=== PATIENT | male | born 1945 | race Caucasian/White ===

== ENCOUNTER → 2016-12-20 | Outpatient (CLI) | payer BC, MEDICARE, OTHER ==
[~2016-12-20] MED LIST: ATEN50TA8 PO; ATOR-22 PO; SULF500T36 PO
[2016-12-20 16:26] LABS: BLOOD UREA NITROGEN 24 mg/dl (7-18); BUN/CREATININE RATIO 13.9 (10-20); CALCIUM 8.8 mg/dl (8.5-10.1); CARBON DIOXIDE 30 mmol/L (21-32); CHLORIDE 100 mmol/L (98-107); GLUCOSE 98 mg/dl (70-99); POTASSIUM 3.7 mmol/L (3.5-5.1); SODIUM 138 mmol/L (136-145)
[2016-12-20 16:27] LABS: PHOSPHORUS 3.4 mg/dl (2.5-4.9)
== END | disposition home or self-care (01) ==
LOC: C.LAB1850 12:46
PROVIDERS: ATTEND Internal Medicine Nephrology
DX: I10 Essential (primary) hypertension (principal); N28.9 Disorder of kidney and ureter, unspecified

== ENCOUNTER → 2017-04-25 | Outpatient (CLI) | payer MEDICARE ==
[2017-04-25 15:24] LABS: BLOOD UREA NITROGEN 24 mg/dl (7-18); BUN/CREATININE RATIO 12.7 (10-20); CARBON DIOXIDE 28 mmol/L (21-32); CHLORIDE 101 mmol/L (98-107); GLUCOSE 97 mg/dl (70-99); MAGNESIUM 2.4 mg/dl (1.8-2.4); POTASSIUM 4.2 mmol/L (3.5-5.1); SODIUM 138 mmol/L (136-145)
[2017-04-25 15:25] LABS: PHOSPHORUS 3.9 mg/dl (2.5-4.9)
[2017-04-25 15:28] LABS: CALCIUM 8.8 mg/dl (8.5-10.1)
[2017-04-25 16:12] LABS: URINE PROTIEN/CREAT RATIO 0.1 (0-0.2); URINE TOTAL PROTEIN 25.4 mg/dl (0-11.9)
== END | disposition home or self-care (01) ==
LOC: C.LAB1850 13:59
PROVIDERS: ATTEND Internal Medicine Nephrology
DX: I10 Essential (primary) hypertension (principal); N28.9 Disorder of kidney and ureter, unspecified

== ENCOUNTER → 2017-05-23 | Outpatient (CLI) | payer MEDICARE ==
[2017-05-23 14:47] LABS: BLOOD UREA NITROGEN 23 mg/dl (7-18); BUN/CREATININE RATIO 15.4 (10-20); CALCIUM 8.6 mg/dl (8.5-10.1); CARBON DIOXIDE 29 mmol/L (21-32); CHLORIDE 107 mmol/L (98-107); GLUCOSE 81 mg/dl (70-99); POTASSIUM 4.5 mmol/L (3.5-5.1); SODIUM 140 mmol/L (136-145)
== END | disposition home or self-care (01) ==
LOC: C.LAB1850 12:33
PROVIDERS: ATTEND Internal Medicine Nephrology
DX: I10 Essential (primary) hypertension (principal)

== ENCOUNTER → 2017-08-26 | Outpatient (CLI) | payer MEDICARE ==
[2017-08-26 15:36] LABS: BLOOD UREA NITROGEN 30 mg/dl (7-18); BUN/CREATININE RATIO 17.9 (10-20); CALCIUM 8.6 mg/dl (8.5-10.1); CARBON DIOXIDE 27 mmol/L (21-32); CHLORIDE 101 mmol/L (98-107); GLUCOSE 111 mg/dl (70-99); PHOSPHORUS 3.4 mg/dl (2.5-4.9); POTASSIUM 4.3 mmol/L (3.5-5.1); SODIUM 135 mmol/L (136-145)
== END | disposition home or self-care (01) ==
LOC: C.LAB1850 13:19
PROVIDERS: ATTEND Internal Medicine Nephrology
DX: N18.3 Chronic kidney disease, stage 3 (moderate) (principal)

== ENCOUNTER → 2017-09-09 | Outpatient (CLI) | payer MEDICARE | END | disposition home or self-care (01) | LOC: C.LAB1850 11:13 | PROVIDERS: ATTEND Urology | DX: C61 Malignant neoplasm of prostate (principal) ==

== ENCOUNTER → 2017-09-28 | Outpatient (CLI) | payer MEDICARE ==
--- NOTE | 2017-09-29 06:28 | PAP/PSG TECHNICIAN REPORT ---
[facility] Shotblast Operator Polysomnogram Report Study name: None Report date: 09/29/2017 Study date: 09/28/2017 Referring Physician: DR. KENNEY BAPTISTE Name: JODY BARGER Interpreting Physician: French Tellez D.O. Date of : 1945 Shotblast Operator: Francisca Sousa, PSGT. Sex: Male Age: 71 StudyType: PSG Weight: 206 lbs Height: 71 years, Height 5' 9" Neck Circum:15 inches BMI: 30.42 Medications: Carvedilol 12.5 mg. Carvedilol 25 mg, Enalapril Maleate 2.5 mg, Sulfasalazine 500 mg, Atorvastatin Calcium 20 mg. Patient History 71 yr. old male presents to the sleep lab for accelerated hypertension, daytime symptomatic hypotension =7, Neck= 15 inches. Parameters Monitored NPSG: E1-M2, E2-M1, Fp1-M2, Fp2-M1, F3-M2, F4-M2, F4-M1, C3-M2, C4-M2, C4-M1, O1-M2, O2-M2, O2-M1, T3-M2, T4-M1, P3-M2, P4-M1, CHIN1, CHIN2, HR, EKG, Legs, PFLOW, SNOR, FLOW, CFLOW, Tidal Volume, THOR, ABDO, SpO2, PLTH, CPRESS, ETCO2 Wave, ETCO2, pH Sleep Architecture Sleep Stages Time at Lights Off 10:41:30 PM STAGES Time (min.) TST (%) Time at Lights On 5:45:30 AM Wake 138.0 -- Total Recording Time (TRT) 424.50 min. N1 39.0 14 Total Sleep Period (TSP) 369.5 min. N2 166.0 58 Total Sleep Time (TST) 286.0min. N3 0.0 0 Awake Time 138.0 min. REM 81.0 28 Wake after Sleep Onset 83.5 min. Sleep Efficiency (SE) 67 % Sleep Onset Latency (NAVIN) 54.5 min. Number of Stage 1 Shifts None Awakenings 4 Stage Changes 33 Number of REM periods 8 REM 81.0 28 REM Latency 17.0 min. NREM 205.0 72 Body Position Analysis Supine Right Left Side Prone Vertical Total Sleep Time (min.) 104.5 97.2 107.3 204.50 0.0 0.3 Total Sleep Time (%) 28% 34% 38% 72 0% N/A% Total Sleep Time REM (min.) 15.9 22.6 42.5 None 0.0 0.0 Total Sleep Time NREM (min.) 65.6 74.6 64.9 None 0.0 0.0 Intermittent Wake (min.) 23.0 24.1 90.6 None 0.0 0.3 Total Sleep Period (%) 22% None None None None None Arousals Myoclonus (PLM) * Events Count Index Events Count Index Spontaneous 29 6 Events Awake (PLMW) 0 0.0 Respiratory 1 0.2 Events Asleep w/ Arousal (PLMA) 1 0.2 PLM 1 0 Events Asleep w/o Arousal (PLMS) 27 5.7 Snoring 2 0 Total Asleep 28 5.9 Total 33 7 Total 28 4 Respiratory Analysis * CA OA MA CH H RERA Total Count 0 0 0 0 13 12 13 Index 0.0 0.0 0.0 0 2.7 3 5.2 Mean Duration 0.0 0.0 0.0 0.00 15.6 12.2 14.0 Longest Duration 0.0 0.0 0.0 0.00 0.0 16.9 23.7 Respiratory Event Summary Total Supine ~Supine Right Left Prone REM NREM Apneas Count 0 0 0 0 0 N/A 0 0 Index 0.0 0 0 0.0 0.0 N/A 0 0 Hypopneas (4% Desat) Count 13 10 3 1 2 N/A 5 8 Index 2.7 7.4 1 0.6 1.1 N/A 3.7 2.3 Apneas & All Hypopneas Count 13 10 3 1 2 N/A 5 8 Index 2.7 7 1 1 1 N/A 3.7 2.3 Respiratory Events (Earthmoving Labourer+All Hyp+RERA) Count 13 13 12 4 8 N/A 5 8 Index 5.2 10 4 2.5 4.5 N/A 10.4 3.2 Respiratory Related Arousal Count 1 13 1 0 1 N/A 1 0 Index 0.2 0 0 0 1 N/A 1 0 Snoring Analysis Supine Right Left Prone REM NREM Total Snore duration 4.2 min Snores count 80 106 14 N/A 50 150 200 Snore mean duration 1.3 Sec Snores index 59 65 8 N/A 37.0 43.9 42.0 TST with snoring (%) 1.5% Desaturation Event Summary: Minimum %SpO2 Event Count Mean/Min/Max Duration(sec.) Desaturation Index % Time In Bed > 90 1 20.3 / 20.3 / 20.3 6.1 2.4 86 - 90 21 29.9 / 10.5 / 55.0 3.5 88.2 81 - 85 1 46.3 / 46.3 / 46.3 1.6 9.4 76 - 80 0 N/A 0.0 0.0 71 - 75 0 N/A 0.0 0.0 66 - 70 0 N/A 0.0 0.0 61 - 65 0 N/A 0.0 0.0 56 - 60 0 N/A 0.0 0.0 51 - 55 0 N/A 0.0 0.0 < 50 0 N/A 0.0 0.0 Total REM NREM Awake <50% 0.0 min. 0.0 min. 0.0 min. 0.0 min. 51 - 60% 0.0 min. 0.0 min. 0.0 min. 0.0 min. 61 - 70% 0.0 min. 0.0 min. 0.0 min. 0.0 min. 71 - 80% 0.0 min. 0.0 min. 0.0 min. 0.0 min. 81 - 90% 401.2 min. 79.1 min. 201.5 min. 120.5 min. 91 - 100% 9.8 min. 1.3 min. 1.4 min. 7.0 min. Average 88 87 87 89 Minimum SpO2 82 82 82 84 Desaturation Event Index 3.0 9.6 2.3 0.0 # Desat. Events below 89% 21 13 8 N/A Time(%) with Saturation below 89% 64.2 15.5 41.7 7.0 Time(min.) with Saturation below 89% 263.8 63.9 171.3 28.6 Time (mins) REM (mins) NREM (mins) % of TST SpO2 Below 90% 21 13 N8 95.3 SpO2 Below 88% 10 0 0 54 Heart Rate Analysis Min (bpm) Max (bpm) Average (bpm) Awake 60 196 68 NREM 57 127 64 REM 58 127 67 Overall 57 127 64 Supplemental O2 Values Minimum O2 level: None Value Start Time End Time Shotblast Operator Comments PSG Study slept in the right, left, and supine positions. No cardiac arrhythmia or PLM's noted. No bruxism noted. Snoring was noted and scored as a 2 on a scale of 1 through 5. (0=no snoring, 5=snoring loud enough to be heard through a closed door or down the bell way) Mr. Barger awoke to use the restroom one time during the night. Mr. Barger stated, I did not sleep as well as I do when I am in my own bed. The final report will be interpreted and signed by a sleep physician. The completed physician report will then be placed in the patient medical record. Patient displayed low oxygen saturations throughout the night. He woke to use the restroom once and complained of being too warm, a fan was put into the room at that time. He had a long period of wakefulness after he woke for the restroom. No significant respiratory events were displayed. Therapy (cm H2O) 0 TIB (min.) 424.0 TST (min.) 286.0 Sleep Onset (min.) 54.5 REM Onset From Sleep (min.) 17.0 Sleep Efficiency % 67 Wakefulness (%) 33 Wakefulness (min.) 138.0 NREM 1 (%) 14 NREM 1 (min.) 39.0 NREM 2 (%) 58 NREM 2 (min.) 166.0 NREM 3 (%) 0 NREM 3 (min.) 0.0 REM (%) 28 REM (min.) 81.0 # Arousals 33 Arousal Index 7 # Snore 200 Snore Index 42.0 AHI 2.7 AHI Supine 7 AHI Non-Supine 1 NREM AHI 2.3 REM AHI 3.7 RDI 5.2 # Obstructive Apnea 0 # Central Apnea 0 # Mixed Apnea 0 # Hypopneas 13 RERAs 12 Total Respiratory Events 26 Time Below SpO2 89% (min.) 235.2 Mean NREM SpO2 (%) 87 Mean REM SpO2 (%) 87 Mean Sleep SpO2 (%) 87 Min NREM SpO2 (%) 82 Min REM SpO2 (%) 82 Position Supine (min.) 104.5 Position Non-supine (min.) 204.5 LM Index Sleep 5.9 LM Index NREM 5.0 LM Index REM 8.1 Mean Heart Rate (bpm) 64 Min Heart Rate (bpm) 57
--- NOTE | 2017-09-30 20:16 | Sleep Study ---
Sleep Study Report Date of Service: 09/28/2017 Sleep Study Report Clinical data: The patient is a 71-year-old male. He feels that he is not rested in the morning. He is followed by Dr. Fuentes of the Nephrology Department. The patient has documented accelerated hypertension at night. This is an in- lab overnight polysomnography being done to help exclude obstructive sleep apnea. Sleep architecture: The total sleep period was 369.5 minutes. The total sleep time was 286 minutes. The sleep efficiency was moderately reduced to 67 percent. The sleep latency was prolonged to 54.5 minutes. Wake after sleep onset was increased to 83.5 minutes. The REM latency was short at 17 minutes. Sleep consisted of stage N1 14 percent, stage N2 58 percent, stage N3 0 percent , stage REM 28 percent. Arousal data: The patient had a total of 33 arousals including 29 spontaneous arousals, 1 respiratory arousal, 1 PLM arousal, and 2 snoring arousals. The arousal index was 7. PLM data: The patient had a total of 28 periodic limb movements of sleep for a PLM index of 5.9. There was 1 arousal associated with limb movements for a PLM arousal index of 0.2. EKG: The underlying cardiac rhythm was normal sinus. The minimum heart rate was 57 beats per minute. The maximum heart rate was difficult to determine due to motion artifact. It appeared to be approximately 75. Respiratory data: The patient had a total of 13 respiratory events, all hypopneas. Hypopneas were scored according to the 4 percent desaturation rule. The mean duration of the hypopneas was 15.6 seconds. The apnea-hypopnea index was 2.7 events per hour. This would suggest no significant sleep apnea. Oximetry data: The average saturation for the night was 88 percent. The minimum saturation was 82 percent. There was a total of 263.8 minutes with saturations less than 89 percent. Personal Injury Law Specialist comments: The patient's slept in the right, left, and supine positions. No cardiac arrhythmia noted. No bruxism noted. Snoring was noted and scored as a 2 on a scale of 1 through 5. The patient awakened to use the restroom 1 time during the nighttime. Impressions: 1. No evidence of significant obstructive sleep apnea 2. Nocturnal hypoxia Comments: Patient had a decreased sleep efficiency. He had difficulty initiating sleep. He then had a long awakening after waking to go to the bathroom. When he did sleep his sleep was fairly well consolidated. He had relatively few arousals. There was no significant limb movements. The major abnormality was that of hypoxia. It is unknown why the patient has hypoxia in light of the fact he does not have sleep apnea. He should be evaluated however for the need for nocturnal oxygen therapy. Recommendations: 1. It is suggested that the patient have an overnight pulse oximetry study to determine if he is a candidate for nocturnal oxygen therapy. 2. It would be suggested that if possible the patient avoid sleeping in the supine position. Typically there is more snoring and respiratory events when supine. Copies To 1: French Tellez DO; Inocente Decker MD; Dieudonne Fuentes D.O.
== END | disposition home or self-care (01) ==
LOC: C.NEUR 20:00
PROVIDERS: ATTEND Internal Medicine Nephrology
DX: I10 Essential (primary) hypertension (principal); G47.30 Sleep apnea, unspecified

== ENCOUNTER → 2018-01-24 | Outpatient (CLI) | payer MEDICARE ==
[2018-01-24 10:42] LABS: ALBUMIN 3.9 gm/dl (3.4-5.0); BLOOD UREA NITROGEN 30 mg/dl (7-18); CALCIUM 8.5 mg/dl (8.5-10.1); CARBON DIOXIDE 28 mmol/L (21-32); CREATININE 1.65 mg/dl (0.60-1.40); GLUCOSE 101 mg/dl (70-99); POTASSIUM 4.1 mmol/L (3.5-5.1); SODIUM 139 mmol/L (136-145)
[2018-01-24 10:43] LABS: PHOSPHORUS 2.9 mg/dl (2.5-4.9)
== END | disposition home or self-care (01) ==
LOC: C.LAB1850 09:29
PROVIDERS: ATTEND Internal Medicine Nephrology
DX: I10 Essential (primary) hypertension (principal)

== ENCOUNTER → 2018-01-24 | Outpatient (CLI) | payer MEDICARE ==
--- NOTE | 2018-01-24 08:44 | DIAGNOSTIC IMAGING REPORT ---
ULTRASOUND EXAM AAA SCREEN CLINICAL HISTORY: ENCOUNTER FOR SCREENING CARDIOVASCULAR DISORDERS COMPARISON STUDY: 08/10/2016 FINDINGS: The maximal abdominal aortic diameter was 1.9 cm. There is no evidence of or iliac artery aneurysm. IMPRESSION: No evidence of abdominal aortic aneurysm Electronically signed by: Chaz Lira M.D. 01/24/2018 8:42 AM Dictated Date/Time: 01/24/2018 8:41 AM
== END | disposition home or self-care (01) ==
LOC: C.ULTR 08:01
PROVIDERS: ATTEND Student in an Organized Health Care Education/Training Program
DX: Z13.6 Encounter for screening for cardiovascular disorders (principal); Z87.891 Personal history of nicotine dependence

== ENCOUNTER 2019-06-13 06:08 | Inpatient (IN) ==
[2019-06-07 14:51] LABS: Basophils # (auto) 0.02 K/uL (0-0.2); Basophils % (auto) 0.3 %; Eosinophils % (auto) 1.6 %; Hematocrit (blood only) 35.6 % (42-52); Immature Granulocytes # (auto) 0.02 K/uL (0.00-0.02); Immature Granulocytes % (auto) 0.3 %; Lymphocytes # (auto) 1.27 K/uL (1.2-3.4); Lymphocytes % (auto) 20.7 %; Mean Corpuscular Hgb Conc 33.7 g/dL (32-36); Mean Corpuscular Volume 90.4 fL (80-100); Mean Platelet Volume 9.6 fL (7.4-10.4); Monocytes # (auto) 0.89 K/uL (0.11-0.59); Monocytes % (auto) 14.5 %; Neutrophils # (auto) 3.84 K/uL (1.4-6.5); Neutrophils % (auto) 62.6 %; Platelet Count 184 K/uL (130-400); RDW Coefficient of Variation 14.2 % (11.5-14.5); Red Blood Count 3.94 M/uL (4.7-6.1); White Blood Count 6.14 K/uL (4.8-10.8)
[2019-06-07 14:57] LABS: Partial Thromboplastin Time 27.3 Seconds (21.0-31.0); Prothrombin Time 10.4 Seconds (9.0-12.0)
[2019-06-07 16:31] LABS: BUN Creatinine Ratio 20.2 (10-20); Calcium 8.4 mg/dl (8.5-10.1); Est GFR (Non-African American) 44.9
--- NOTE | 2019-06-08 09:55 | Anesthesiology Consultation ---
Date of Service June 08, 2019 Assessment & Plan (1) Encounter for pre-operative examination: Cardio: 05/14/19: reviewed stress test from 05/11/19- stress ECHO "negative for inducible ischemia." "low risk for MACE in the perioperative." Blood pressure "not at goal but is better controlled compared to last visit." Home readings reviewed- continued on same regimen. Chart Review Chart Review: Acceptable Risk for Surgery and Patient NOT seen in Pre Admission Testing History Surgery Operation Date: 06/13/19 07:15 Proposed Procedures p Right Carotid Endarterectomy - Abran Merino MD Height/Weight Height: 5 ft 9 in Weight: 93.44 kg Allergies Allergy/AdvReac Type Severity Reaction Status Date / Time tamsulosin [From Flomax] Allergy Intermediate LETHARGY Verified 06/05/19 13:22 Medications Home Medications Medication Instructions Recorded Confirmed Last Taken atorvastatin 20 mg PO QAM 03/19/19 06/05/19 Unknown carvedilol 12.5 mg PO QAM 03/19/19 06/05/19 Unknown hydralazine 25 mg PO QPM 03/19/19 06/05/19 Unknown sulfasalazine [Azulfidine EN-tabs] 1,000 mg PO TID 03/19/19 06/05/19 Unknown amlodipine 5 mg PO QPM 05/22/19 06/05/19 Unknown aspirin [Aspir-Low] 81 mg PO QPM 05/22/19 06/05/19 Unknown enalapril maleate 2.5 mg PO QPM 06/05/19 06/05/19 Unknown Past Medical History Medical History CKD (chronic kidney disease) creatinine baseline 1.5-1.6 per chart review Hearing deficit History of prostate cancer Hx of skin cancer, basal cell nose s/p excision Hx of ulcerative colitis Hyperlipidemia Hypertension Left renal artery stenosis Past Family History Family History Other No known health problems Past Surgical History Surgical History History of cataract surgery RT/LEFT History of colonoscopy History of tonsillectomy Hx of hernia repair Left inguinal Hx of prostatectomy Hx of transurethral resection of prostate Social History Smoking Status: Former smoker tobacco type: cigarettes Smoking cigarettes per day: ~2ppd x 25 years Do You Dip or Chew Tobacco: No Smoking End Date: 1982 Hx Alcohol Use: No Hx Substance Use: No substance use type: does not use Testing Laboratory Results 06/07/19 12:43 06/07/19 12:43 PT 10.4 Seconds (9.0-12.0) 06/07/19 12:43 INR 1.0 (0.9-1.1) 06/07/19 12:43 APTT 27.3 Seconds (21.0-31.0) 06/07/19 12:43 Blood Type O Negative 06/07/19 12:43 Antibody Screen NEGATIVE 06/07/19 12:43 Electrocardiogram Date: 01/25/19 Findings: + SB @ (56) Chest X-Ray Date: 03/26/19 Minimal platelike atelectasis right base. Otherwise negative study. Stress Test Date: 05/11/19 Type: exercise EF 65-70%. No LVH. Negative stress ECHO for ischemia at 87% MPHR. Positive stress EKG for ischemia. 80%. MPHR. 5.5 METS. Other Testing Neck MRA: 02/26/19: 80% stenosis proximal right internal carotid artery. No additional significant stenotic process. Mildly compromised exam due to respiratory and somatic motion.
[~2019-06-13 06:08] MED LIST changes: -ATEN50TA8 PO; -ATOR-22 PO; +CEFAZOLIN 2000MG 2,000 MG/15 ML SYR IV SCH; +LR 15ML/HR IV SCH; +SODIUM CHLORIDE 0.9% 1000ML IV SCH; -SULF500T36 PO
--- NOTE | 2019-06-13 06:14 | History & Physical Report ---
Date of Service June 13, 2019 History of Present Illness Chief Complaint: Right internal carotid artery stenosis Primary Care Provider: Zackary Decker MD Mr. Arnold is a 73-old gentleman who last month or so, had symptoms of dizziness and as part of his workup had a duplex which shows significant for severe right carotid artery stenosis in the 80-99%. The patient reports that approximately a year ago, he had an episode where he had some numbness and weakness in his left upper extremity that he thought he had slept wrong on his arm, but that took approximately 3 weeks to resolve. The patient denies any other symptoms aside from the couple of episodes of dizziness. The patient denies any chest pain, shortness of breath. The patient denies any drooping of any facial droop or any weakness in his upper or lower extremities. The patient reports that he is on medications for hypertension, but he has not had any changes to his medications recently and does not believe that his blood pressure is related to his episodes of dizziness. The patient denies any fever, chills, nausea, vomiting. REVIEW OF SYSTEMS: A 10-point review of systems negative except for HPI. PAST MEDICAL HISTORY: Includes hypertension, ulcerative colitis, prostate cancer status post removal of his prostate a few years ago. PAST SURGICAL HISTORY: Includes a tonsillectomy in childhood as well as a left inguinal hernia repair. The patient also underwent a prostatectomy for prostate cancer. SOCIAL HISTORY: The patient is a former smoker, quit smoking in the 1980s, also a former alcohol use, quit drinking alcohol in the 80s and denies any illicit drug use. FAMILY HISTORY: Significant for hypertension. HOME MEDICATIONS: Include sulfasalazine, carvedilol, hydralazine, enalapril, atorvastatin. ALLERGIES: THE PATIENT IS ALLERGIC TO FLOMAX, REACTION IS LETHARY. PHYSICAL EXAMINATION: Vital signs include blood pressure of 156/74, satting 98% with a heart rate of 63. General: The patient is awake, alert, oriented, follows command, does not appear to be in any distress. Heart: Regular rate and rhythm. Lungs: Clear to auscultation bilaterally. Abdomen: Soft, nontender, nondistended. The patient is neurologically intact with no focal neuro deficits. Cranial nerves 2 through 12 grossly intact. The patient has palpable femoral pulses bilaterally and no neck bruits appreciated. Skin: Warm and well perfused. IMAGING: The patient underwent a carotid artery duplex which showed no significant stenosis in the left internal carotid artery with severe 80-99% stenosis of the right internal carotid artery. This was confirmed by MRA. ASSESSMENT AND PLAN: Mr. Arnold is a 73-year-old gentleman with asymptomatic right carotid arteries stenosis, 80-99%. We have discussed with the patient his carotid artery disease and we have discussed all three options of medical management, carotid stenting and carotid endarterectomy. We have recommended a right carotid endarterectomy for the patient, for which he is agreeable. We have discussed with him all of the possible complications and the patient understands and had the opportunity to ask questions. Allergies Allergy/AdvReac Type Severity Reaction Status Date / Time tamsulosin [From Flomax] Allergy Intermediate LETHARGY Verified 06/05/19 13:22 Home Medications Home Medications Medication Instructions Recorded Confirmed Type atorvastatin 20 mg PO QAM 03/19/19 06/05/19 History carvedilol 12.5 mg PO QAM 03/19/19 06/05/19 History hydralazine 25 mg PO QPM 03/19/19 06/05/19 History sulfasalazine [Azulfidine EN-tabs] 1,000 mg PO TID 03/19/19 06/05/19 History amlodipine 5 mg PO QPM 05/22/19 06/05/19 History aspirin [Aspir-Low] 81 mg PO QPM 05/22/19 06/05/19 History enalapril maleate 2.5 mg PO QPM 06/05/19 06/05/19 History Past Med/Surg History Medical History CKD (chronic kidney disease) creatinine baseline 1.5-1.6 per chart review Hearing deficit History of prostate cancer Hx of skin cancer, basal cell nose s/p excision Hx of ulcerative colitis Hyperlipidemia Hypertension Left renal artery stenosis Surgical History History of cataract surgery RT/LEFT History of colonoscopy History of tonsillectomy Hx of hernia repair Left inguinal Hx of prostatectomy Hx of transurethral resection of prostate Family History Other No known health problems Social History Preferred Language: Greek Communication Ability: Effective Senior It Project Manager Required: No Beliefs That Will Affect Care: None Current Living Situation: Spouse Other Information That Helps Us Care for You: No Feels Safe at Home: Yes Safety Concerns: Feels Safe At This Time Smoking Status: Former smoker Tobacco Type: cigarettes Cigarettes Per Day: ~2ppd x 25 years Do You Dip or Chew Tobacco: No Smoking End Date: 1982 Second Hand Exposure: No Tobacco Cessation Education Requested by Patient: No Hx Alcohol Use: No Hx Substance Use: No
[2019-06-13] MEDS ORDERED: ONDANSETRON INJ 2 MG/ML 2 ML VIAL IV PRN ×2 (06:40→14:52)
[2019-06-13] MEDS ORDERED: fentaNYL citrate 100 MCG/2 ML VIAL IV PRN (06:40)
[2019-06-13] MEDS ORDERED: ATROPINE SULFATE 0.1 MG/ML 10ML SYR IV PRN (06:40)
[2019-06-13] MEDS ORDERED: ePHEDrine sulfate 50 MG/ML AMP IV PRN (06:40)
[2019-06-13] MEDS ORDERED: DEXAMETHASONE SOD INJ 4 MG/ML VIAL ONE (06:47)
[2019-06-13] MEDS ORDERED: GLYCOPYRROLATE 0.2 MG/ML VIAL ONE (06:47)
[2019-06-13] MEDS ORDERED: ROCURONIUM BROMIDE 10 MG/ML 5 ML VIAL ONE ×6 (06:47→13:24)
[2019-06-13] MEDS ORDERED: PROPOFOL IV EMULSION 10 MG/ML 20 ML VIAL IV ONE (06:47)
[2019-06-13] MEDS ORDERED: NEOSTIGMINE METHYLSULFATE 5 MG/5 ML SYR ONE (06:47)
[2019-06-13] MEDS ORDERED: fentaNYL citrate 100 MCG/2 ML VIAL ONE ×2 (06:47)
[2019-06-13] MEDS ORDERED: LIDOCAINE HCL 2% 2 ML VIAL/AMP(20MG/ML) INFIL ONE ×2 (06:47→06:52)
[2019-06-13] MEDS ORDERED: ONDANSETRON INJ 2 MG/ML 2 ML VIAL ONE (06:47)
[2019-06-13] MEDS ORDERED: PHENYLEPHRINE HCL 10 MG/ML VIAL ONE (06:54)
[2019-06-13 06:59] LABS: BUN Creatinine Ratio 15.6 (10-20); Calcium 8.4 mg/dl (8.5-10.1); Creatinine Clr Calc Pharmacy 48.3 ml/min; Est GFR (African American) 52.5; Est GFR (Non-African American) 45.3; Potassium 3.9 mmol/L (3.5-5.1)
--- NOTE | 2019-06-13 07:36 | History & Physical Bridge Note ---
Date of Service June 13, 2019 History & Physical Bridge Note I have examined the patient, reviewed the History & Physical and in the interval since the performance of the History & Physical I have noted the following changes of clinical significance: no changes noted
[2019-06-13] MEDS ORDERED: HEPARIN (PORCINE) 1000 UNIT/ML 10 ML (CATH LAB USE ONLY) ONE (07:37)
[2019-06-13] MEDS ORDERED: THROMBIN FOR SOLN 20000 UNIT KIT ONE (07:37)
[2019-06-13] MEDS ORDERED: GELATIN SPONGE SZ 100 ONE (07:37)
[2019-06-13] MEDS ORDERED: BUPIVACAINE/EPINEPHRINE 0.5% MPF 1:200,000 30 ML VIAL ONE (07:37)
[2019-06-13] MEDS ORDERED: LIDOCAINE HCL 1% 20 ML VIAL ONE (07:37)
[2019-06-13] MEDS: CEFAZOLIN 250 MG/ML 1 GM VIAL ONE ×2 (08:17→12:00)
[2019-06-13] MEDS ORDERED: HEPARIN SOD (PORCINE) 1000 UNIT/ML 10 ML VIAL ONE ×2 (08:29→10:58)
[2019-06-13] MEDS ORDERED: ePHEDrine sulfate 50 MG/ML SYR ONE (08:43)
[2019-06-13 12:34] LABS: iSTAT Creatinine 1.1 mg/dl (0.6-1.3); iSTAT Hemoglobin 10.2 g/dl (14.0-18.0); iSTAT Ionized Calcium 1.12 mmol/l (1.12-1.32); iSTAT Potassium 4.3 mEq/L (3.3-5.0)
--- NOTE | 2019-06-13 12:39 | Post Operative Brief Note ---
Immediate Post Op Note v1 Date of Surgery June 13, 2019 Pre & Post Diagnosis Operation Date: 06/13/19 08:00 Pre-Op Diagnosis: Right Internal Carotid Artery Stenosis Post-Op Diagnosis: Right Internal Carotid Artery Stenosis Procedure Operation Date: 06/13/19 08:00 Actual Procedures p Right Carotid Endarterectomy with patch(Right) - Abran Merino MD Surgeon Abran Merino MD Glass Bead Maker Suad Bermudez MD Estimated Blood Loss 500 Findings Consistent with Post-Op Diagnosis Anesthesia Type General Complications none Disposition Accompanied Patient To Recovery: No Disposition: Recovery Room
[2019-06-13] MEDS ORDERED: LABETALOL HCL IV 5 MG/ML 20ML IV ONE (13:23)
[2019-06-13 13:38] LABS: White Blood Count 7.71 K/uL (4.8-10.8)
[2019-06-13 13:39] LABS: Basophils # (auto) 0.01 K/uL (0-0.2); Basophils % (auto) 0.1 %; Eosinophils # (auto) 0.01 K/uL (0-0.5); Eosinophils % (auto) 0.1 %; Hematocrit (blood only) 32.6 % (42-52); Hemoglobin 11.1 g/dL (14.0-18.0); Immature Granulocytes # (auto) 0.08 K/uL (0.00-0.02); Lymphocytes # (auto) 0.63 K/uL (1.2-3.4); Lymphocytes % (auto) 8.2 %; Mean Corpuscular Volume 90.6 fL (80-100); Mean Platelet Volume 8.7 fL (7.4-10.4); Monocytes # (auto) 0.31 K/uL (0.11-0.59); Neutrophils # (auto) 6.67 K/uL (1.4-6.5); Neutrophils % (auto) 86.6 %; Platelet Count 148 K/uL (130-400); RDW Coefficient of Variation 14.2 % (11.5-14.5); RDW Standard Deviation 47.2 fL (36.4-46.3)
--- NOTE | 2019-06-13 13:49 | Anesthesiology Progress Note ---
Date of Service June 13, 2019 Anesthesia Post Procedure Vital Signs Vital Signs: Temp Pulse Pulse Resp BP BP Pulse Ox 06/13/19 13:40 51 L 18 160/83 H 95 06/13/19 13:30 52 L 15 162/85 H 99 06/13/19 13:20 52 L 14 169/89 H 99 06/13/19 13:13 97.7 F 56 L 21 181/87 H 98 06/13/19 06:44 98.1 F 65 20 211/98 H 97 Pain Intensity Right Neck: Pain Intensity: 0 Transfer of Care Handoff Completed per policy Notes Mental Status: alert / awake / arousable and participated in evaluation Patient Amnestic to Procedure: Yes Nausea / Vomiting: adequately controlled Pain: adequately controlled Airway Patency, RR, SpO2: stable & adequate BP & HR: stable & adequate Hydration State: stable & adequate Anesthetic Complications: no major complications apparent and Pt Satisfied with anesthetic care
[2019-06-13] MEDS ORDERED: OXYCODONE/ACETAMINOPHEN 5mg/325mg TAB PO PRN (14:52)
[2019-06-13] MEDS ORDERED: MoRPHine SULFATE 4 MG/ML 1 ML CARP\\VIAL IV PRN (14:52)
[2019-06-13] MEDS ORDERED: D5W AND 1/2NSS 1,000 ML IV SCH (15:30)
--- NOTE | 2019-06-13 15:36 | Critical Care Consultation ---
Date of Consultation June 13, 2019 Assessment & Plan (1) Admitted to intensive care unit: The patient was brought into the ICU postoperatively post right carotid endarterectomy and overall he seems to be doing better. Is not in any distress. Also he does not have weakness of any extremities and he is alert awake oriented and hemodynamically stable. We are going to monitor him very closely and continue with current plan of care. Also monitor his oxygenation blood pressure and any weakness in any extremities. I have spent discussed with the attending at length and I also discussed with the family members. I spent greater than 55 minutes of clinical time. (2) Status post carotid endarterectomy: Post carotid endarterectomy overall remains stable he is here for close monitoring which will be done and maintain his blood pressure as well. (3) Carotid stenosis, right: Postoperatively. (4) Hypertension: The patient was started on his blood pressure medication overall he is hemodynamically stable. (5) Hypercholesterolemia: The patient will be started on his cholesterol-lowering medications. History of Present Illness Reason for Consultation: Right carotid endarterectomy. Requesting Physician: Abran Merino MD Attending Physician: Abran Merino MD History of Present Illness Mr. Arnold is a 73-old gentleman who last month or so, had symptoms of dizziness and as part of his workup had a duplex which shows significant for severe right carotid artery stenosis in the 80-99%. The patient reports that approximately a year ago, he had an episode where he had some numbness and weakness in his left upper extremity that he thought he had slept wrong on his arm, but that took approximately 3 weeks to resolve. The patient denies any other symptoms aside from the couple of episodes of dizziness. The patient denies any chest pain, shortness of breath. The patient denies any drooping of any facial droop or any weakness in his upper or lower extremities. The patient reports that he is on medications for hypertension, but he has not had any changes to his medications recently and does not believe that his blood pressure is related to his episodes of dizziness. The patient denies any fever, chills, nausea, vomiting. The patient is postoperatively post right carotid endarterectomy and overall seems to be stable at this time. He is resting comfortably. He denies having any headache dizziness or syncopal episode. Also denies having any chest pain or palpitations. Also denies having any shortness of breath wheezing orthopnea or paroxysmal nocturnal dyspnea. He does not have any abdominal pain or vomiting or blood in the stool urine or painful micturition or diarrhea. He denies any weakness of his extremities. Allergies Allergy/AdvReac Type Severity Reaction Status Date / Time tamsulosin [From Flomax] Allergy Intermediate LETHARGY Verified 06/13/19 06:31 Home Medications Home Medications Medication Instructions Recorded Confirmed Type atorvastatin 20 mg PO QAM 03/19/19 06/13/19 History carvedilol 12.5 mg PO QAM 03/19/19 06/13/19 History hydralazine 25 mg PO QPM 03/19/19 06/13/19 History sulfasalazine [Azulfidine EN-tabs] 1,000 mg PO TID 03/19/19 06/13/19 History amlodipine 5 mg PO QPM 05/22/19 06/13/19 History aspirin [Aspir-Low] 81 mg PO QPM 05/22/19 06/13/19 History enalapril maleate 2.5 mg PO QPM 06/05/19 06/13/19 History Patient History Family History Other No known health problems Social History Preferred Language: Spanish Communication Ability: Effective Case Worker Required: No Beliefs That Will Affect Care: None Current Living Situation: Spouse Other Information That Helps Us Care for You: No Feels Safe at Home: Yes Safety Concerns: Feels Safe At This Time Smoking Status: Former smoker Tobacco Type: cigarettes Cigarettes Per Day: ~2ppd x 25 years Do You Dip or Chew Tobacco: No Smoking End Date: 1982 Second Hand Exposure: No Tobacco Cessation Education Requested by Patient: No Hx Alcohol Use: No Hx Substance Use: No Review of Systems Review of Systems: Total 12 systems reviewed and they are negative except mentioned as above in history. Physical Exam Physical Exam: GENERAL: Elderly male was just brought postoperatively with right carotid endarterectomy and is hemodynamically stable alert awake and oriented and is not in any acute distress. HEENT. Pupils are reactive to light. There is no cervical or supraclavicular adenopathy. NECK. Neck is supple, no JVD, no lymphadenopathy. Right side of the neck is dressed with a gauze and dressings, postoperatively RESPIRATORY: Bilateral good air entry, no wheezing, no crackles, no rhonchi heard. CARDIOVASCULAR: S1-S2 heard. No murmur no rub no gallops heard. CHEST: No abnormalities were detected. GASTROINTESTINAL/ABDOMEN: Abdomen is soft, nontender, bowel sounds are positive, no mass felt. MUSCULOSKELETAL: No clubbing no edema nontender calf muscles. SKIN: No rash, no lesion seen. NEUROLOGIC: The patient is alert, awake, oriented x3 and moving all his extremities. PSYCHIATRIC: The patient is cooperative and not anxious. LYMPHATIC: No cervical or supraclavicular or inguinal lymph nodes detected. Unable to examine on the right side because patient just had surgery, right carotid endarterectomy. Results & Data Vital Signs (Past 12 Hours) Vital Signs Temp Pulse Pulse Resp BP BP Pulse Ox 06/13/19 14:25 51 L 16 143/75 H 95 06/13/19 14:10 54 L 13 140/88 95 06/13/19 14:00 36.2 C L 50 L 14 142/55 H 95 06/13/19 13:50 50 L 16 137/73 94 06/13/19 13:40 51 L 18 160/83 H 95 06/13/19 13:30 52 L 15 162/85 H 99 06/13/19 13:20 52 L 14 169/89 H 99 06/13/19 13:13 36.5 C 56 L 21 181/87 H 98 06/13/19 06:44 36.7 C 65 20 211/98 H 97 Laboratory Results Abnormal lab results 06/13/19 06/13/19 06/13/19 Range/Units 06:23 11:21 13:22 RBC 3.60 L (4.7-6.1) M/uL Hgb 11.1 L (14.0-18.0) g/dL POC Hgb 10.2 L (14.0-18.0) g/dl Hct 32.6 L (42-52) % POC Hct 30 L (42-52) % RDW Std Deviation 47.2 H (36.4-46.3) fL Immature Gran # (Auto) 0.08 H (0.00-0.02) K/uL Neut # (Auto) 6.67 H (1.4-6.5) K/uL Lymph # (Auto) 0.63 L (1.2-3.4) K/uL POC Total CO2 23 L (24-31) mEq/l POC Anion Gap 14.0 L (16-25) mmol/L 06/13/19 13:22 06/13/19 06:23 POC BUN 20 H (7-18) mg/dl BUN 23 H (7-18) mg/dl Creatinine 1.49 H (0.6-1.4) mg/dl POC Glucose (other) 148 H (70-99) mg/dl Calcium 8.4 L (8.5-10.1) mg/dl Diagnostic Findings XR chest Pre-admission PA/Lat CLINICAL HISTORY: pat preoperative evaluation COMPARISON STUDY: No previous studies for comparison. FINDINGS: The bones soft tissues and hemidiaphragms are normal. The cardiomediastinal silhouette is normal. The lungs are clear. The pulmonary vasculature is normal. Minimal platelike atelectasis right base IMPRESSION: Minimal platelike atelectasis right base. Otherwise negative study. Medications Administered Current Inpatient Medications Amlodipine Besylate (Norvasc) 5 mg PO QPM NICOLE Stop: 07/13/19 20:59 Aspirin (Ecotrin Ectab) 81 mg PO QPM NICOLE Stop: 07/13/19 20:59 Atorvastatin Calcium (Lipitor) 20 mg PO QAM NICOLE Stop: 07/14/19 08:59 Carvedilol (Coreg) 12.5 mg PO QAM NICOLE Stop: 07/14/19 08:59 Enalapril Maleate (Vasotec) 2.5 mg PO QPM NICOLE Stop: 07/13/19 20:59 Hydralazine HCl (Apresoline) 25 mg PO QPM NICOLE Stop: 07/13/19 20:59 Dextrose/Sodium Chloride (D5w And 1/2nss) 1,000 mls @ 125 mls/hr IV .Q8H NICOLE Stop: 07/13/19 15:29 Cefazolin Sodium (Ancef 2000mg) 2,000 mg in 15 mls @ 3.75 mls/min IV Q8H NICOLE; Protocol Stop: 06/14/19 00:03 Morphine Sulfate (Morphine Sulfate) 1 - 4 mg IV Q2H PRN PRN Reason: Severe Pain Stop: 06/27/19 14:51 Ondansetron HCl (Zofran) 4 mg IV ONE PRN PRN Reason: Nausea And Vomiting Stop: 07/13/19 14:51 Oxycodone/Acetaminophen (Percocet 5mg/325mg) 1 tab PO Q4H PRN PRN Reason: Moderate Pain Stop: 06/27/19 14:51 Sulfadiazine (Azulfidine Delayed Rel) 1,000 mg PO TID NICOLE Stop: 07/13/19 15:29 PG Care Time/CCT Total # of Minutes Spent Total Time Spent with Patient: Total time spent is greater than 50% in coordination of care (as documented) at patient's floor/unit and/or counseling patient:
[2019-06-13] MEDS: CEFAZOLIN 2000MG 2,000 MG/15 ML SYR IV SCH ×2 (16:11→22:59)
[2019-06-13] MEDS: sulfaSALAzine 500 MG TABEC PO SCH ×2 (16:30→21:21)
[2019-06-13] MEDS ORDERED: GLUCAGON FOR INJ 1 MG VIAL IM PRN (18:45)
[2019-06-13] MEDS ORDERED: GLUCOSE 10 TABS/TUBE PO PRN (18:45)
[2019-06-13] MEDS ORDERED: CARBOHYDRATES FOR HYPOGLYCEMIA PO PRN (18:45)
[2019-06-13] MEDS ORDERED: GLUCOSE 40% GEL 15 GM TUBE PO PRN (18:45)
[2019-06-13] MEDS ORDERED: DEXTROSE 50% 50 ML SYRINGE IV PRN (18:45)
[2019-06-13] MEDS: INSULIN ASPART 100 UNITS/ML 3 ML PEN SC SCH (20:12)
[2019-06-13] MEDS ORDERED: ASPIRIN 81 MG ECTAB PO SCH (21:00)
[2019-06-13] MEDS ORDERED: ENALAPRIL MALEATE 5 MG TAB PO SCH (21:00)
[2019-06-13] MEDS ORDERED: AMLODIPINE BESYLATE 5 MG TAB PO SCH (21:00)
[2019-06-14 04:41] LABS: Basophils # (auto) 0.01 K/uL (0-0.2); Basophils % (auto) 0.1 %; Eosinophils # (auto) 0.02 K/uL (0-0.5); Eosinophils % (auto) 0.2 %; Hematocrit (blood only) 29.7 % (42-52); Immature Granulocytes # (auto) 0.04 K/uL (0.00-0.02); Immature Granulocytes % (auto) 0.4 %; Lymphocytes # (auto) 0.92 K/uL (1.2-3.4); Lymphocytes % (auto) 8.6 %; Mean Corpuscular Hgb Conc 33.7 g/dL (32-36); Mean Corpuscular Volume 91.4 fL (80-100); Mean Platelet Volume 9.2 fL (7.4-10.4); Monocytes # (auto) 1.57 K/uL (0.11-0.59); Monocytes % (auto) 14.6 %; Neutrophils # (auto) 8.18 K/uL (1.4-6.5); Neutrophils % (auto) 76.1 %; Platelet Count 163 K/uL (130-400); RDW Coefficient of Variation 14.2 % (11.5-14.5); RDW Standard Deviation 47.4 fL (36.4-46.3); Red Blood Count 3.25 M/uL (4.7-6.1); White Blood Count 10.74 K/uL (4.8-10.8)
--- NOTE | 2019-06-14 06:22 | Operative Report ---
Post Operative Report Pre & Post Diagnosis Operation Date: 06/13/19 08:00 Pre-Op Diagnosis: Right Internal Carotid Artery Stenosis Post-Op Diagnosis: Right Internal Carotid Artery Stenosis Procedure Operation Date: 06/13/19 08:00 Actual Procedures p Right Carotid Endarterectomy(Right) - Abran Merino MD Surgeon Abran Merino MD Brimming Machine Operator Suad Bermudez MD Estimated Blood Loss 100 Findings Consistent with Post-Op Diagnosis Specimens right carotid plaque Anesthesia Type General Complications none Disposition Accompanied Patient To Recovery: No Disposition: Recovery Room Indications This is a 73yo male who was found to have an 80-99% narrowing of his right carotid artery during a workup for dizziness. A right CEA was recommended. I have discussed the risks options and benefits of the procedure with the patient. The patient understands the risks options and benefits and agrees to the procedure. Description of Procedure The patient was taken to the operating room and placed in supine position. After general anesthesia was accomplished the right-side of the neck was prepped and draped in a sterile manner. The patient was identified and a timeout performed. A longitudinal neck incision was then made coursing along the medial border of the sternocleidomastoid muscle. The incision was taken down through the platysmal layer. The facial vein was identified, ligated, and divided. The common carotid artery was then seen. It was dissected free down to the omohyoid muscle. The dissection was carried upward until the external carotid artery and superior thyroid artery was seen. The superior thyroid artery was slung with a 2-0 silk suture. The external carotid was slung with a red rubber vessel loop. Next the dissection was carried up along the internal carotid artery. This was carried upward to beyond the area of narrowing. The hypoglossal nerve was seen and preserved. The patient was heparinized. After adequate heparinization was accomplished, the internal, external, and common carotid arteries were clamped. A longitudinal arteriotomy was started on the common carotid artery and extended upward along the internal carotid artery to a point beyond the area of narrowing. There was a large soft plaque of the internal carotid artery origin with a large ulceration present causing approximately 85-90% narrowing. A Doppler shunt was then placed in the internal, followed by the common carotid artery and held in place with Isrrael clamps. There was good back bleeding seen from the internal carotid artery. The endarterectomy was then started in the appropriate plane on the common carotid artery. This was carried upward and the external carotid was everted and endarterectomized. The endarterectomy was then carried up along the internal carotid artery till a nice feathering breakoff point was accomplished beyond the end of the plaque. The endarterectomy was then carried down further on the common carotid artery. At end of the a rteriotomy, the plaque was then transected. Under loop magnification, all loose debris and flaps werer removed. There is no distal flap seen at the end of the endarterectomy site. The arteriotomy then closed using an Accuseal patch and a running CV 6 [place] suture. This was done in the usual vascular fashion. Prior to completing the closure, the doppler shunt was removed and the internal and common carotid arteries were reclamped. Backbleeding and forward bleeding was allowed to occur. The flow surface was irrigated with heparinized saline. The final few sutures were then placed and securely tied. Clamps were then removed off the external and common carotid arteries. The clamp was then removed the internal carotid artery. Good distal flow was seen. There was bleeding noted from the distal end of the patch. A tear along the distal end of the suture line was noted in the distal internal carotid artery. An attempt was made to repair this but it continued to tear and bleed. The artery was then reclamped and the patient reheparinized. The distal two thirds of the patch was removed and an internal sundt shunt was placed. The artery appeared thin and redundant. A small section of internal carotid was then excised and an end to end anastomosis was done on the artery. The arteriotomy was then closed using a bovine patch and closing it to the remaining acuseal using 6-0 Prolene sutures. Prior to completing the closure, the doppler shunt was removed and the internal and common carotid arteries were reclamped. Backbleeding and forward bleeding was allowed to occur. The flow surface was irrigated with heparinized saline. The final few sutures were then placed and securely tied. Clamps were then removed off the external and common carotid arteries. The clamp was then removed the internal carotid artery. Good distal flow was seen. Adequate hemostasis was seen of the patch. The wound was inspected and adequate hemostasis was obtained. There was a good doppler signal heard distal to the patch. No high pitch signals were heard. The wound was irrigated with antibiotic solution. It was then closed with a running 3-0 Vicryl suture for the platysmal layer and a 4-0 subcuticular Vicryl suture for the skin edges. Dermabond was used for dressing. The patient left the operating room in satisfactory condition and tolerated the procedure well. I attest to the content of the Intraoperative Record and any orders documented therein. Any exceptions are noted below.
--- NOTE | 2019-06-14 07:48 | Surgery Progress Note ---
Date of Service June 14, 2019 Assessment & Plan (1) Status post carotid endarterectomy: Doing well post op D/C today Subjective No complaints. No difficulty in swallowing. Denies hoarseness Physical Exam Skin: + wound (dry and clean) Neurologic: moves all extremities; no focal motor deficits Speech / Cognition: normal speech Results & Data Vital Signs (Past 12 Hours) Vital Signs Temp Pulse Resp BP BP Pulse Ox 06/14/19 06:00 76 18 145/51 H 128/67 94 06/14/19 05:00 74 21 144/48 H 124/59 L 94 06/14/19 04:00 36.9 C 75 23 131/45 L 120/52 L 92 06/14/19 03:00 75 19 162/56 H 141/73 H 97 06/14/19 02:00 78 20 142/45 H 133/70 90 06/14/19 01:00 82 20 131/41 L 133/66 94 06/14/19 00:00 36.9 C 73 20 153/46 H 152/75 H 96 06/13/19 23:00 74 21 187/59 H 196/87 H 96 06/13/19 22:00 66 18 166/61 H 156/78 H 96 06/13/19 21:00 64 21 170/62 H 147/76 H 96 06/13/19 20:00 36.6 C 72 20 146/62 H 137/71 95
[2019-06-14] MEDS: sulfaSALAzine 500 MG TABEC PO SCH (08:01)
[2019-06-14] MEDS: INSULIN ASPART 100 UNITS/ML 3 ML PEN SC SCH (08:05)
[2019-06-14] MEDS ORDERED: ATORVASTATIN 20 MG TAB PO SCH (09:00)
[2019-06-14] MEDS ORDERED: CARVEDILOL 12.5 MG TAB PO SCH (09:00)
--- NOTE | 2019-06-18 10:05 | Discharge Summary ---
Date of Service June 18, 2019 Admission HPI Per Admitting Provider Mr. Arnold is a 73-old gentleman who last month or so, had symptoms of dizziness and as part of his workup had a duplex which shows significant for severe right carotid artery stenosis in the 80-99%. The patient reports that approximately a year ago, he had an episode where he had some numbness and weakness in his left upper extremity that he thought he had slept wrong on his arm, but that took approximately 3 weeks to resolve. The patient denies any other symptoms aside from the couple of episodes of dizziness. The patient denies any chest pain, shortness of breath. The patient denies any drooping of any facial droop or any weakness in his upper or lower extremities. The patient reports that he is on medications for hypertension, but he has not had any changes to his medications recently and does not believe that his blood pressure is related to his episodes of dizziness. The patient denies any fever, chills, nausea, vomiting. REVIEW OF SYSTEMS: A 10-point review of systems negative except for HPI. PAST MEDICAL HISTORY: Includes hypertension, ulcerative colitis, prostate cancer status post removal of his prostate a few years ago. PAST SURGICAL HISTORY: Includes a tonsillectomy in childhood as well as a left inguinal hernia repair. The patient also underwent a prostatectomy for prostate cancer. SOCIAL HISTORY: The patient is a former smoker, quit smoking in the 1980s, also a former alcohol use, quit drinking alcohol in the 80s and denies any illicit drug use. FAMILY HISTORY: Significant for hypertension. HOME MEDICATIONS: Include sulfasalazine, carvedilol, hydralazine, enalapril, atorvastatin. ALLERGIES: THE PATIENT IS ALLERGIC TO FLOMAX, REACTION IS LETHARY. PHYSICAL EXAMINATION: Vital signs include blood pressure of 156/74, satting 98% with a heart rate of 63. General: The patient is awake, alert, oriented, follows command, does not appear to be in any distress. Heart: Regular rate and rhythm. Lungs: Clear to auscultation bilaterally. Abdomen: Soft, nontender, nondistended. The patient is neurologically intact with no focal neuro deficits. Cranial nerves 2 through 12 grossly intact. The patient has palpable femoral pulses bilaterally and no neck bruits appreciated. Skin: Warm and well perfused. IMAGING: The patient underwent a carotid artery duplex which showed no significant stenosis in the left internal carotid artery with severe 80-99% stenosis of the right internal carotid artery. This was confirmed by [facility]. ASSESSMENT AND PLAN: Mr. Arnold is a 73-year-old gentleman with asymptomatic right carotid arteries stenosis, 80-99%. We have discussed with the patient his carotid artery disease and we have discussed all three options of medical management, carotid stenting and carotid endarterectomy. We have recommended a right carotid endarterectomy for the patient, for which he is agreeable. We have discussed with him all of the possible complications and the patient understands and had the opportunity to ask questions. Admission Exam Per Admitting Provider PHYSICAL EXAMINATION: Vital signs include blood pressure of 156/74, satting 98% with a heart rate of 63. General: The patient is awake, alert, oriented, follows command, does not appear to be in any distress. Heart: Regular rate and rhythm. Lungs: Clear to auscultation bilaterally. Abdomen: Soft, nontender, nondistended. The patient is neurologically intact with no focal neuro deficits. Cranial nerves 2 through 12 grossly intact. The patient has palpable femoral pulses bilaterally and no neck bruits appreciated. Skin: Warm and well perfused. Principal Diagnosis 1. s/p R CEA 2. R ICA stenosis Discharge Exam Constitutional WD/WN, vitals as above well developed and cooperative; not in distress Skin + wound (dry and clean) Neurologic moves all extremities; no focal motor deficits Speech / Cognition: normal speech Discharge Data Allergies Allergy/AdvReac Type Severity Reaction Status Date / Time tamsulosin [From Flomax] Allergy Intermediate LETHARGY Verified 06/13/19 06:31 Consultations 06/13/19 07:37 Consult Cabinet Builder Routine Procedures Performed Operation Date: 06/13/19 08:00 Actual Procedures p Right Carotid Endarterectomy(Right) - Abran Merino MD Ordered Studies 06/13/19 06:51 US guide vascular access Stat Hospital Course (1) Status post carotid endarterectomy: Doing well post op D/C POD #1 Total Time Total Time Spent Total Time Spent (In Minutes): 15 minutes Total Time Includes: Examination of the Patient, Discharge Planning and Medication Reconciliation Discharge Plan Discharge Items Patient Disposition: Home - Self-Care Reason For Visit: Right Internal Carotid Artery Stenosis Discharge Diagnosis: Right internal carotid artery stenosis Discharge Goals: Therapeutic intervention Activity: Per 'Additional Instructions' section Bathing Comment: may shower starting tomorrow Non-emergency contact: Surgeon Call non-emergency contact if: you have any medication questions, your symptoms worsen, your pain is not controlled, your pain is worsening, your pain is unusual for you, your pain is concerning for you, your temperature is above 101.5, your wound has increased redness, your wound has increased drainage and your wound pain has increased Follow-up/Referrals: Zackary Decker MD [Primary Care Provider] - Diet: Heart Healthy Addtl Provider Instructions: SPECIAL CARE INSTRUCTIONS: Medications: * Continue to take Aspirin as directed. Incision Care: * You may shower, but do not rub incision. You may let the warm soapy water run over it. Be sure to dry the incision well after bathing. * Do not shave directly over the incision until it is healed. * DO NOT IMMERSE THE INCISION IN A TUB/POOL/etc. UNTIL HEALED. Restrictions: * Do not drive for at least one week or if you are still taking any narcotic pain medication. * Do not lift anything heavier than a gallon of milk for one week after going home. Possible Complications: * Numbness - It is normal to have some numbness around the incision. Numbness can extend beyond the incision to areas of the neck, ear and face. The numbness is due to bruising of nerves during the surgery and will gradually improve over a period of months. * Hoarseness/Difficulty Speaking and Swallowing - The bruising of nerves in the neck can also cause a hoarse voice, difficulty speaking or swallowing. This may improve over time, HOWEVER, if it continues for more than a few days please contact our office ([phone]). * Excessive Swelling - There will be some swelling immediately after surgery which usually resolves within one week. If you notice that the swelling is getting worse, notify your surgeon ([phone]). * Drainage/Bleeding - If there is any drainage or bleeding, it should be a very small amount (less than a teaspoon per day). If you have excessive bleeding or drainage from the incision, call your surgeon ([phone]) right away. ACTIVATION OF EMERGENCY MEDICAL SYSTEM: Call 911, immediately, if you experience any of the following: Warning Signs and Symptoms of Stroke: * Sudden numbness or weakness of the face, arm or leg, especially on one side of the body * Sudden confusion, trouble speaking or understanding * Sudden trouble seeing in one or both eyes * Sudden trouble walking, dizziness, loss of balance or coordination * Sudden severe headache with no cause Do not delay calling 911 if you experience any warning signs or symptoms of a stroke. Delay in seeking medical attention may affect what treatments can be given to you. Risk Factors for Stroke: You can reduce your chances of stroke by working with your medical provider to adopt a healthy lifestyle. Some specific ways to lower your chance of stroke are: * If you are a smoker, now is the time to stop smoking cigarettes * If you are diabetic, improve the control of your blood sugars * Avoid excessive amounts of alcohol * Control high blood pressure * Lose weight if you are overweight * Be sure to lead an active lifestyle * Eat a healthy diet low in salt, cholesterol and fat You should know about other risk factors for stroke that you are unable to control. These include: * Age 55 years or older * Male gender * Certain racial groups: , or / * Family History of Stroke, Mini stroke or Heart Attack * Sickle Cell Disease You will be receiving a call from the Vascular Surgery Nurse after you are discharged. FOLLOW UP VISIT: It is important for you to keep your follow up appointments with your medical provider. Keep any scheduled doctor appointments. Call [phone] to schedule a follow up appointment if one not already scheduled. Prescriptions: New oxycodone-acetaminophen [Percocet] 5-325 mg tablet 1 tab PO Q6H PRN (Reason: pain) Qty: 10 RF: 0 Continued enalapril maleate 2.5 mg Tablet 2.5 mg PO QPM RF: 0 atorvastatin 20 mg Tablet 20 mg PO QAM RF: 0 carvedilol 12.5 mg Tablet 12.5 mg PO QAM RF: 0 sulfasalazine [Azulfidine EN-tabs] 500 mg Tablet,Delayed Release (Dr/Ec) 1,000 mg PO TID RF: 0 hydralazine 25 mg Tablet 25 mg PO QPM RF: 0 amlodipine 5 mg Tablet 5 mg PO QPM RF: 0 aspirin [Aspir-Low] 81 mg Tablet,Delayed Release (Dr/Ec) 81 mg PO QPM RF: 0 Stand-Alone Forms: [facility] Discharge Orders: Discharge Order (Routine); Ordered 06/14/19 Ordered By: Abran Merino Admission Data Admit Date/Time: 06/13/19 07:36 Attending Provider: Abran Merino Admit Provider: Abran Merino Primary Care Provider: Zackary Decker Other Providers: Jan Atkinson Service: Intensive Care Unit Other Interventions: Discharge Summary Assessment (RN) Last Done: 06/14/19 08:28 DC Date/Time DO NOT enter until pt leaves facility: 06/14/19 10:12
--- NOTE | 2019-06-19 05:33 | Coding Query ---
CODING QUERY To promote full compliance with coding requirements relating to patient care, provider participation is requested in all cases of employee operations examiner uncertainty. Please assist us with the question(s) below: Coding Question(s): Patient admitted for right internal carotid endarterectomy. Op report stated " a tear along distal suture line noted in the distal internal carotid artery ; attempt to repair but bleeding continued. A small section of the distal internal carotid was excised. 2/3 of the graft was removed . A reanastomosis was done". Please check below the phrase that pertains to the revision of the endarterectomy. Thanks for your help! BAKARI Dale [facility] Physician's Response(s): The endarterectomy intraoperative revision is an expected outcome of the procedure x___ the endarterectomy intraoperative revision is a complication of the procedure Cannot determine if the endarterectomy intraoperative revision is an expected outcome or complication Other/ Please document: Principal Diagnosis: "that condition established after study, to be chiefly responsible for occasioning the admission of the patient to the hospital for care." Co-Existing Principal Diagnosis: "when two or more diagnoses equally meet the criteria for principal diagnosis as determined by the circumstances of admission, diagnostic work up, and/or therapy provided, and the Alphabetic Index, Tabular List, or another coding guideline does not provide sequencing direction, any one of the diagnoses may be sequenced first." "When the physician has documented what appears to be a current diagnosis in the body of the record, but has not included the diagnosis in the final diagnostic statement, the physician should be asked whether the diagnosis should be added." (Source [facility]oding [facility] 2 QTR90. p3-4) STEPHEN
== END 2019-06-14 10:12 | disposition home or self-care (01) | DRG 38 ==
LOC: ASU 06:08 → 1E 07:36
DX: E78.5 Hyperlipidemia, unspecified; I97.51 Accidental puncture and laceration of a circulatory system organ or structure during a circulatory system procedure; Y92.234 Operating room of hospital as the place of occurrence of the external cause; K51.90 Ulcerative colitis, unspecified, without complications; I65.21 Occlusion and stenosis of right carotid artery; I12.9 Hypertensive chronic kidney disease with stage 1 through stage 4 chronic kidney disease, or unspecified chronic kidney disease; Z79.82 Long term (current) use of aspirin; Z87.891 Personal history of nicotine dependence; N18.9 Chronic kidney disease, unspecified; Y83.8 Other surgical procedures as the cause of abnormal reaction of the patient, or of later complication, without mention of misadventure at the time of the procedure; Z85.46 Personal history of malignant neoplasm of prostate

== ENCOUNTER 2020-09-12 23:44 | Observation (INO) ==
[2020-09-13] MEDS ORDERED: ACETAMINOPHEN 1,000 MG/100 ML VIAL IV STA (00:06)
--- NOTE | 2020-09-13 00:10 | Emergency Department Note ---
History of Present Illness General Chief complaint: Abdominal Pain Stated complaint: ABD PAIN Time Seen by Provider: 09/12/20 23:54 Source: patient and family Mode of arrival: ambulatory Limitations: no limitations History of Present Illness Provider complaint: abdominal pain Onset (ago): hour(s) 7 Location: abdomen Radiation: non-radiation Severity: moderate Pain Consistency: + constant Maximum Pain Intensity: 5 Current Pain Intensity: 5 Quality: + constant Relieved By: + none Exacerbated By: + none Associated symptoms: + nausea/vomiting Treatments prior to arrival: none This is a 74-year-old male who presents to the emergency department complaining of lower abdominal pain that began at 4 PM this afternoon. Patient denies any known sick contacts, any change in diet or medications. Patient states the pain is nonradiating, his across bilateral lower quadrants. Patient states he did have a normal bowel movement earlier in the day and has not noticed any change in his urine or urinary habits. Patient does have a history of ulcerative colitis although feels this is well controlled, and did have a colonoscopy earlier this year. Patient has had a prior inguinal hernia repair, no other abdominal surgeries. Patient denies accompanying fevers or chills. Patient denies any back pain or dizziness. has not been ill. No prior history of similar symptoms. Pt seen during a time of high acuity and national emergency pandemic while wearing PPE. Home Medications Home Medications Medication Instructions Recorded Confirmed Type carvedilol 12.5 mg PO HS 03/19/19 09/13/20 History aspirin 81 mg tablet,delayed 81 mg PO QPM 08/23/19 09/13/20 History release psyllium husk 1 tbsp PO QAM 12/12/19 09/13/20 History enalapril maleate 2.5 mg tablet 2.5 mg PO QPM #90 tab 07/01/20 09/13/20 Rx hydralazine 25 mg tablet 25 mg PO QAM #90 tab 07/01/20 09/13/20 Rx atorvastatin 80 mg PO QAM 09/13/20 09/13/20 History sulfasalazine 1,000 mg PO TID 09/13/20 09/13/20 History Allergies Allergy/AdvReac Type Severity Reaction Status Date / Time tamsulosin [From Flomax] Allergy Intermediate LETHARGY Verified 09/13/20 01:01 Past Med/Surg History Medical History Acute appendicitis with localized peritonitis CKD (chronic kidney disease) creatinine baseline 1.5-1.6 per chart review Hearing deficit History of prostate cancer Hx of skin cancer, basal cell nose s/p excision Hx of ulcerative colitis Hyperlipidemia Hypertension Left renal artery stenosis Surgical History History of cataract surgery RT/LEFT History of colonoscopy History of right-sided carotid endarterectomy 05/2019 @ [facility] by Dr. Merino History of tonsillectomy Hx of hernia repair Left inguinal Hx of prostatectomy Hx of transurethral resection of prostate Family History Other No known health problems Social History Smoking Status: Former smoker Cigarettes Per Day: ~2ppd x 25 years; Second Hand Exposure: Yes (mom smoked); Hx Alcohol Use: No Hx Substance Use: No Preferred Language: Swiss Communication Ability: Effective [employer]iler Required: No Beliefs That Will Affect Care: None Current Living Situation: Spouse Feels Safe at Home: Yes Assistive Devices: None Review of Systems See HPI for pertinent positives & negatives. and A total of 10 systems reviewed and were otherwise negative Physical Exam Vital Signs Vital Signs - 24 hr 09/13/20 02:00 09/13/20 02:30 09/13/20 03:00 Pulse Rate 63 Pulse Rate from SpO2 Sensor 64 61 64 Respiratory Rate 19 18 18 Blood Pressure 177/91 H 160/83 H 142/79 H Blood Pressure Mean 123 115 97 Pulse Oximetry 91 95 94 Oxygen Delivery Method Room Air Room Air Room Air 09/13/20 04:34 09/13/20 05:00 09/13/20 06:23 Pulse Rate 58 L 60 Pulse Rate from SpO2 Sensor 58 L 64 60 Respiratory Rate 16 18 21 Blood Pressure 147/78 H 140/75 174/88 H Blood Pressure Mean 103 99 128 Pulse Oximetry 95 94 96 Oxygen Delivery Method Room Air Room Air Room Air GENERAL: alert, well appearing, well nourished, no distress, non-toxic EYE EXAM: normal conjunctiva, PERRL and EOM's grossly intact OROPHARYNX: no exudate, no erythema, lips, buccal mucosa, and tongue normal and mucous membranes are moist NECK: supple, no nuchal rigidity, no adenopathy, non-tender LUNGS: Clear to auscultation. Normal chest wall mechanics, no w/r/r HEART: no murmurs, S1 normal and S2 normal ABDOMEN: abdomen soft, non-tender focally, mild discomfort with palpation across lower abdomen b/l, normo-active bowel sounds, no masses, no rebound or guarding. BACK: Back is symmetrical on inspection and there is no deformity, no midline tenderness, no CVA tenderness. SKIN: no rashes and no bruising UPPER EXTREMITIES: upper extremities are grossly normal. FROM, nml pulses b/l. LOWER EXTREMITIES: No pitting edema. FROM, nml pulses b/l. NEURO EXAM: Normal sensorium, cranial nerves II-XII grossly intact, normal speech, no gross weakness of arms, no gross weakness of legs. Gross sensation intact. Course Course 05: Patient updated on CT findings and blood work. Patient states pain is present however improved compared to arrival. Patient denies any nausea or vomi ting, fevers or chills. Patient states he does take a baby aspirin, no other anticoagulation. Patient states he last ate at 6 PM yesterday. 05: Case discussed with on-call general surgery, Dr. Keyes. Would like Mefoxin 2 g IV given. Administered Medications Aspirin (Aspirin 81 Mg Ectab) 81 mg PO QPM NICOLE Stop: 10/13/20 20:59 Last Admin: 09/13/20 20:25 Dose: 81 mg Documented by: [id number] Atorvastatin Calcium (Atorvastatin 40 Mg Tab) 80 mg PO QAM NICOLE Stop: 10/13/20 10:12 Last Admin: 09/13/20 11:22 Dose: 80 mg Documented by: [id number] Carvedilol (Carvedilol 12.5 Mg Tab) 12.5 mg PO HS NICOLE Stop: 10/13/20 20:59 Last Admin: 09/13/20 20:25 Dose: 12.5 mg Documented by: [id number] Enalapril Maleate (Enalapril Maleate 5 Mg Tab) 2.5 mg PO QPM NICOLE Stop: 10/13/20 20:59 Last Admin: 09/13/20 20:28 Dose: 2.5 mg Documented by: [id number] Hydralazine HCl (Hydralazine Hcl 25 Mg Tab) 25 mg PO QAM [facility] Stop: 10/13/20 10:12 Last Admin: 09/13/20 11:22 Dose: 25 mg Documented by: [id number] Lactated Ringer's (Lr) 1,000 mls @ 75 mls/hr IV .[id number] [facility] Stop: 10/13/20 06:29 Last Admin: 09/14/20 00:24 Dose: 75 mls/hr Documented by: [id number] Infusion: 09/13/20 20:00 Dose: 75 mls/hr Documented by: [id number] Admin: 09/13/20 06:40 Dose: 75 mls/hr Documented by: [id number] Cefoxitin Sodium 2,000 mg/ (Dextrose) 60 mls @ 100 mls/hr IV Q8H [facility] Stop: 09/23/20 13:59 Last Infusion: 09/13/20 23:16 Dose: 0 mls/hr Documented by: [id number] Admin: 09/13/20 22:20 Dose: 100 mls/hr Documented by: [id number] Infusion: 09/13/20 15:39 Dose: 0 mls/hr Documented by: [id number] Admin: 09/13/20 14:59 Dose: 100 mls/hr Documented by: [id number] Sulfasalazine (Sulfasalazine 500 Mg Tablet) 1,000 mg PO TID [facility] Stop: 10/13/20 10:12 Last Admin: 09/13/20 20:27 Dose: 1,000 mg Documented by: [id number] Admin: 09/13/20 14:56 Dose: 1,000 mg Documented by: [id number] Admin: 09/13/20 11:22 Dose: 1,000 mg Documented by: [id number] Discontinued Medications Bupivacaine HCl (Bupivacaine 0.5 % 5 Mg/1 Ml Mpf 30ml Vial) Confirm Administered Dose 30 ml .ROUTE .STK-MED ONE Stop: 09/13/20 06:42 Last Admin: 09/13/20 08:38 Dose: 30 ml Documented by: [id number] Epinephrine HCl (Epinephrine Inj 1 Mg/Ml Amp) Confirm Administered Dose 1 mg .ROUTE .STK-MED ONE Stop: 09/13/20 06:41 Last Admin: 09/13/20 08:37 Dose: 0.15 mg Documented by: [id number] Hydralazine HCl (Hydralazine Hcl 20 Mg/Ml Vial) 10 mg IV NOW STA Stop: 09/13/20 09:04 Last Admin: 09/13/20 09:01 Dose: 10 mg Documented by: [id number] Hydralazine HCl (Hydralazine Hcl 20 Mg/Ml Vial) Confirm Administered Dose 20 mg .ROUTE .STK-MED ONE Stop: 09/13/20 09:06 Last Admin: 09/13/20 10:55 Dose: Not Given Documented by: [id number] Sodium Chloride (Nss 1000ml) 1,000 mls @ 125 mls/hr IV .Q8H NICOLE Stop: 10/13/20 00:14 Last Admin: 09/13/20 10:54 Dose: Not Given Documented by: [id number] Infusion: 09/13/20 06:37 Dose: 0 mls/hr Documented by: [id number] Admin: 09/13/20 00:43 Dose: 125 mls/hr Documented by: [id number] Acetaminophen (Ofirmev) 1,000 mg in 100 mls @ 400 mls/hr IV NOW STA Stop: 09/13/20 00:20 Last Infusion: 09/13/20 01:02 Dose: 0 mls/hr Documented by: [id number] Admin: 09/13/20 00:43 Dose: 400 mls/hr Documented by: [id number] Cefoxitin Sodium (Mefoxin) 2,000 mg in 60 mls @ 100 mls/hr IV NOW STA Stop: 09/13/20 06:06 Last Infusion: 09/13/20 06:38 Dose: 0 mls/hr Documented by: [id number] Admin: 09/13/20 06:07 Dose: 100 mls/hr Documented by: [id number] Influenza Virus Vaccine Quadrival (Influenza Virus Quad Vaccine 0.5 Ml Syr) 0.5 ml IM .ONCE ONE Stop: 09/13/20 11:59 Last Admin: 09/13/20 17:07 Dose: 0.5 ml Documented by: [id number] Ioversol (Ioversol 100ml) 94 ml IV ONCE ONE Stop: 09/13/20 03:58 Last Admin: 09/13/20 03:57 Dose: 94 ml Documented by: [id number] Labetalol HCl (Labetalol Hcl Iv 5 Mg/Ml 20ml) Confirm Administered Dose 5 mg IV .STK-MED ONE Stop: 09/13/20 09:01 Last Admin: 09/13/20 10:55 Dose: Not Given Documented by: [id number] Psyllium Hydrophilic Mucilloid (Psyllium 58.6% Powder Packet) 1 pkt PO 1030 ONE Stop: 09/13/20 10:31 Last Admin: 09/13/20 11:23 Dose: 1 pkt Documented by: [id number] Medical Decision Making Differential Diagnosis Differential diagnoses includes but is not limited to gastritis, peptic ulcer disease, GERD, gallbladder disease, pancreatitis, small bowel obstruction, acute coronary syndrome, pericarditis, ischemic bowel, irritable bowel disease, irrita ble bowel syndrome, appendicitis, diverticulitis, malignancy, hernia, urinary tract infection, torsion, [/ectopic (if female)], perforation, trauma, infectious. Medical Records Attestation: I reviewed the patient's medical records. Home Medications Current Medication List: was personally reviewed by me Laboratory Data Attestation: I reviewed the patient's lab results. Result diagrams: 09/13/20 00:30 09/13/20 00:30 Lab Results 09/13/20 09/13/20 09/13/20 Range/Units 00:26 00:30 00:30 WBC 14.83 H (4.8-10.8) K/uL RBC 4.39 L (4.7-6.1) M/uL Hgb 13.5 L (14.0-18.0) g/dL Hct 40.0 L (42-52) % MCV 91.1 (80-100) fL MCH 30.8 (25-34) pg MCHC 33.8 (32-36) g/dL RDW Std Deviation 45.8 (36.4-46.3) fL RDW Coeff of Gini 13.7 (11.5-14.5) % Plt Count 176 (130-400) K/uL MPV 9.0 (7.4-10.4) fL Immature Gran % (Auto) 0.2 % Neut % (Auto) 84.3 % Lymph % (Auto) 5.3 % Kimball % (Auto) 9.7 % Eos % (Auto) 0.4 % Baso % (Auto) 0.1 % Neut # (Auto) 12.50 H (1.4-6.5) K/uL Lymph # (Auto) 0.78 L (1.2-3.4) K/uL Kimball # (Auto) 1.44 H (0.11-0.59) K/uL Eos # (Auto) 0.06 (0-0.5) K/uL Baso # (Auto) 0.02 (0-0.2) K/uL Immature Gran # (Auto) 0.03 H (0.00-0.02) K/uL PT (9.0-12.0) Seconds INR (0.9-1.1) Sodium (136-145) mmol/L Potassium (3.5-5.1) mmol/L Chloride (98-107) mmol/L Carbon Dioxide (21-32) mmol/L Anion Gap (3-11) BUN (7-18) mg/dl Creatinine (0.6-1.4) mg/dl Est Cr Clr Drug Dosing ml/min Est GFR ( Amer) Est GFR (Non-Af Amer) BUN/Creatinine Ratio (10-20) Glucose (70-99) mg/dl Lactate 1.1 (0.4-2.0) mmol/L Calcium (8.5-10.1) mg/dl Magnesium (1.8-2.4) mg/dl Total Bilirubin (0.2-1) mg/dl AST (15-37) U/L ALT (12-78) U/L Alkaline Phosphatase (45-117) U/L Troponin I (0-0.045) ng/ml Total Protein (6.4-8.2) gm/dl Albumin (3.4-5.0) gm/dl Globulin (2.5-4.0) gm/dl Albumin/Globulin Ratio (0.9-2) Lipase (73-393) U/L Urine Color Yellow Urine Appearance Clear (Clear) Urine pH 8.0 H (4.5-7.5) Ur Specific [place] 1.016 (1.000-1.030) Urine Protein Trace H (Negative) Urine Glucose (UA) Negative (Negative) Urine Ketones Negative (Negative) Urine Blood Negative (Negative) Urine Nitrite Negative (Negative) Urine Bilirubin Negative (Negative) Urine Urobilinogen Negative (Negative) Ur Leukocyte Esterase Negative (Negative) Urine WBC (Auto) 0 (0-5) /hpf Urine RBC (Auto) 0-4 (0-4) /hpf U Hyaline Cast (Auto) 0 (0-5) /lpf U Epithel Cells (Auto) 0-5 (0-5) /lpf Urine Bacteria (Auto) Negative (Negative) COVID-19 Eval Order SARS-CoV-2, RNA, NAAT (NEGATIVE) 09/13/20 09/13/20 09/13/20 Range/Units 00:30 00:30 06:17 WBC (4.8-10.8) K/uL RBC (4.7-6.1) M/uL Hgb (14.0-18.0) g/dL Hct (42-52) % MCV (80-100) fL MCH (25-34) pg MCHC (32-36) g/dL RDW Std Deviation (36.4-46.3) fL RDW Coeff of Gini (11.5-14.5) % Plt Count (130-400) K/uL MPV (7.4-10.4) fL Immature Gran % (Auto) % Neut % (Auto) % Lymph % (Auto) % Kimball % (Auto) % Eos % (Auto) % Baso % (Auto) % Neut # (Auto) (1.4-6.5) K/uL Lymph # (Auto) (1.2-3.4) K/uL Kimball # (Auto) (0.11-0.59) K/uL Eos # (Auto) (0-0.5) K/uL Baso # (Auto) (0-0.2) K/uL Immature Gran # (Auto) (0.00-0.02) K/uL PT 10.9 (9.0-12.0) Seconds INR 1.0 (0.9-1.1) Sodium 134 L (136-145) mmol/L Potassium 4.5 (3.5-5.1) mmol/L Chloride 100 (98-107) mmol/L Carbon Dioxide 29 (21-32) mmol/L Anion Gap 5.0 (3-11) BUN 27 H (7-18) mg/dl Creatinine 1.37 (0.6-1.4) mg/dl Est Cr Clr Drug Dosing 51.4 ml/min Est GFR ( Amer) 57.7 Est GFR (Non-Af Amer) 49.7 BUN/Creatinine Ratio 19.7 (10-20) Glucose 121 H (70-99) mg/dl Lactate (0.4-2.0) mmol/L Calcium 8.8 (8.5-10.1) mg/dl Magnesium 2.1 (1.8-2.4) mg/dl Total Bilirubin 0.8 (0.2-1) mg/dl AST 21 (15-37) U/L ALT 36 (12-78) U/L Alkaline Phosphatase 95 (45-117) U/L Troponin I < 0.015 (0-0.045) ng/ml Total Protein 8.0 (6.4-8.2) gm/dl Albumin 4.3 (3.4-5.0) gm/dl Globulin 3.7 (2.5-4.0) gm/dl Albumin/Globulin Ratio 1.2 (0.9-2) Lipase 125 (73-393) U/L Urine Color Urine Appearance (Clear) Urine pH (4.5-7.5) Ur Specific [place] (1.000-1.030) Urine Protein (Negative) Urine Glucose (UA) (Negative) Urine Ketones (Negative) Urine Blood (Negative) Urine Nitrite (Negative) Urine Bilirubin (Negative) Urine Urobilinogen (Negative) Ur Leukocyte Esterase (Negative) Urine WBC (Auto) (0-5) /hpf Urine RBC (Auto) (0-4) /hpf U Hyaline Cast (Auto) (0-5) /lpf U Epithel Cells (Auto) (0-5) /lpf Urine Bacteria (Auto) (Negative) COVID-19 [id number] SARS-CoV-2, RNA, NAAT (NEGATIVE) 09/13/20 Range/Units 06:17 WBC (4.8-10.8) K/uL RBC (4.7-6.1) M/uL Hgb (14.0-18.0) g/dL Hct (42-52) % MCV (80-100) fL MCH (25-34) pg MCHC (32-36) g/dL RDW Std Deviation (36.4-46.3) fL RDW Coeff of Gini (11.5-14.5) % Plt Count (130-400) K/uL MPV (7.4-10.4) fL Immature Gran % (Auto) % Neut % (Auto) % Lymph % (Auto) % Kimball % (Auto) % Eos % (Auto) % Baso % (Auto) % Neut # (Auto) (1.4-6.5) K/uL Lymph # (Auto) (1.2-3.4) K/uL [place] # (Auto) (0.11-0.59) K/uL Eos # (Auto) (0-0.5) K/uL Baso # (Auto) (0-0.2) K/uL Immature Gran # (Auto) (0.00-0.02) K/uL PT (9.0-12.0) Seconds INR (0.9-1.1) Sodium (136-145) mmol/L Potassium (3.5-5.1) mmol/L Chloride (98-107) mmol/L Carbon Dioxide (21-32) mmol/L Anion Gap (3-11) BUN (7-18) mg/dl Creatinine (0.6-1.4) mg/dl Est Cr Clr Drug Dosing ml/min Est GFR ( Amer) Est GFR (Non-Af Amer) BUN/Creatinine Ratio (10-20) Glucose (70-99) mg/dl Lactate (0.4-2.0) mmol/L Calcium (8.5-10.1) mg/dl Magnesium (1.8-2.4) mg/dl Total Bilirubin (0.2-1) mg/dl AST (15-37) U/L ALT (12-78) U/L Alkaline Phosphatase (45-117) U/L Troponin I (0-0.045) ng/ml Total Protein (6.4-8.2) gm/dl Albumin (3.4-5.0) gm/dl Globulin (2.5-4.0) gm/dl Albumin/Globulin Ratio (0.9-2) Lipase (73-393) U/L Urine Color Urine Appearance (Clear) Urine pH (4.5-7.5) Ur Specific [place] (1.000-1.030) Urine Protein (Negative) Urine Glucose (UA) (Negative) Urine Ketones (Negative) Urine Blood (Negative) Urine Nitrite (Negative) Urine Bilirubin (Negative) Urine Urobilinogen (Negative) Ur Leukocyte Esterase (Negative) Urine WBC (Auto) (0-5) /hpf Urine RBC (Auto) (0-4) /hpf U Hyaline Cast (Auto) (0-5) /lpf U Epithel Cells (Auto) (0-5) /lpf Urine Bacteria (Auto) (Negative) COVID-19 Eval Order SARS-CoV-2, RNA, NAAT NEGATIVE (NEGATIVE) Imaging Data Radiologist's Impression: CT abdomen and pelvis with contrast: Impression: The appendix is inflamed, measuring 12 mm in diameter, demonstrating periappendiceal inflammatory changes, wall thickening, and appendicolith. The findings indicate the presence of acute appendicitis. No abdominal abscess. Radiologist: Victoriano Wick MD ECG Data Attestation: I personally reviewed and interpreted this ECG as follows: Indication: + abdominal pain Rate (beats per minute): 65 Rhythm: + normal sinus ECG Intervals/blocks: + Normal QRS and + Normal QT ECG [place]: + Normal ECG ST segments: + Normal ST segments Blood Pressure Blood Pressure Findings: Elevated blood pressure Blood Pressure Disposition: Referred to patients primary care provider MDM Narrative Patient presents with bilateral lower abdominal pain, without fever or vomiting. Patient initially attributed to possible foodborne illness. Given patient's age and comorbidities, labs are drawn and sent, patient sent for CT imaging with contrast. Labs are reassuring with exception of leukocytosis noted. CT revealed acute appendicitis, without evidence of perforation or abscess. Case discussed with general surgery on-call who will evaluate the patient and would like IV antibiotics added. This was started on the patient, and given pending surgery, a Covid test was added in addition. Patient remained hemodynamically stable in the emergency room. Patient does take aspirin, however no other anticoagulation. Patient denied any other complications related to any anesthesia previously. Chest x-ray added preop as a precaution. EKG had already been performed and was reassuring. An order was placed for continuous cardiac monitoring. The monitor shows a rate of _80_ with _normal sinus_ rhythm. Impression & Plan Abdominal pain, Acute appendicitis Discharge Plan Visit Data Chief Complaint: Abdominal Pain Stated Complaint: ABD PAIN ED Provider: Yamileth Farmer Discharge Problem: Abdominal pain, Acute appendicitis Patient Disposition: Admitted As Inpatient Discharge Instructions Interventions: ED Discharge Assessment Last Done: 09/13/20 07:29 Discharge Problem: Abdominal pain Qualifiers: Abdominal location: lower abdomen, unspecified Qualified Code(s): R10.30 - Lower abdominal pain, unspecified Acute appendicitis Qualifiers: Acute appendicitis type: unspecified acute appendicitis type Qualified Code(s): K35.80 - Unspecified acute appendicitis
[2020-09-13 00:42] LABS: Basophils # (auto) 0.02 K/uL (0-0.2); Basophils % (auto) 0.1 %; Eosinophils # (auto) 0.06 K/uL (0-0.5); Eosinophils % (auto) 0.4 %; Hemoglobin 13.5 g/dL (14.0-18.0); Immature Granulocytes # (auto) 0.03 K/uL (0.00-0.02); Immature Granulocytes % (auto) 0.2 %; Lymphocytes # (auto) 0.78 K/uL (1.2-3.4); Lymphocytes % (auto) 5.3 %; Mean Corpuscular Hemoglobin 30.8 pg (25-34); Mean Corpuscular Hgb Conc 33.8 g/dL (32-36); Mean Corpuscular Volume 91.1 fL (80-100); Monocytes # (auto) 1.44 K/uL (0.11-0.59); Monocytes % (auto) 9.7 %; Neutrophils % (auto) 84.3 %; Platelet Count 176 K/uL (130-400); RDW Coefficient of Variation 13.7 % (11.5-14.5); RDW Standard Deviation 45.8 fL (36.4-46.3); Red Blood Count 4.39 M/uL (4.7-6.1); White Blood Count 14.83 K/uL (4.8-10.8)
[2020-09-13] MEDS: SODIUM CHLORIDE 0.9% 1000ML 1,000 ML IV SCH ×2 (00:43→10:54)
[2020-09-13 00:51] LABS: Appearance Urine Clear (Clear); Bacteria Urine Automated Negative (Negative); Bilirubin Urine Negative (Negative); Blood Urine Negative (Negative); Cast Urine Automated 0 /lpf (0-5); Color Urine Yellow; Epithelial Cell Urine Auto 0-5 /lpf (0-5); Glucose Urine UA Negative (Negative); Ketones Urine Negative (Negative); Leukocyte Esterase Urine Negative (Negative); Nitrite Urine Negative (Negative); RBC Urine Automated 0-4 /hpf (0-4); Specific Gravity Urine 1.016 (1.000-1.030); Urobilinogen Urine Negative (Negative); WBC Urine Automated 0 /hpf (0-5)
[2020-09-13 00:59] LABS: Prothrombin Time 10.9 Seconds (9.0-12.0)
[2020-09-13 01:01] LABS: Alanine Aminotransferase 36 U/L (12-78); Albumin Level 4.3 gm/dl (3.4-5.0); Aspartate Aminotransferase 21 U/L (15-37); BUN Creatinine Ratio 19.7 (10-20); Blood Urea Nitrogen 27 mg/dl (7-18); Calcium 8.8 mg/dl (8.5-10.1); Carbon Dioxide 29 mmol/L (21-32); Chloride 100 mmol/L (98-107); Creatinine Clr Calc Pharmacy 51.4 ml/min; Est GFR (African American) 57.7; Est GFR (Non-African American) 49.7; Glucose 121 mg/dl (70-99); Lipase 125 U/L (73-393); Magnesium 2.1 mg/dl (1.8-2.4); Potassium 4.5 mmol/L (3.5-5.1); Sodium 134 mmol/L (136-145)
[2020-09-13 01:06] LABS: Albumin Globulin Ratio 1.2 (0.9-2); Alkaline Phosphatase 95 U/L (45-117); Bilirubin,Total 0.8 mg/dl (0.2-1); Globulin 3.7 gm/dl (2.5-4.0); Troponin I < 0.015 ng/ml (0-0.045)
[2020-09-13 01:13] LABS: Protein Urine Trace (Negative); Sulfosalicylic Acid Urine Positive (Negative)
[2020-09-13] MEDS ORDERED: IOVERSOL 100ml IV ONE (03:57)
[2020-09-13] MEDS ORDERED: cefOXitin 2,000 MG/60 ML BAG IV STA (05:31)
--- NOTE | 2020-09-13 06:19 | History & Physical Report ---
Date of Service September 13, 2020 Assessment & Plan (1) Acute appendicitis with localized peritonitis: IV mefoxin IVF to OR for lap appendectomy History of Present Illness Primary Care Provider: Zackary Decker MD This is a 74-year-old male who presents to the emergency department complaining of lower abdominal pain that began at 4 PM yesterday. The the pain is nonradiating, his across bilateral lower quadrants. He has had some nausea. Patient states he did have a normal bowel movement earlier in the day and has not noticed any change in his urine or urinary habits. Patient does have a history of ulcerative colitis although feels this is well controlled, and did have a colonoscopy earlier this year. Patient has had a prior inguinal hernia repair, no other abdominal surgeries. He denies accompanying fevers, chills, nor vomiting. A CT scan shows acute appendicitis with a fecalith. Allergies Allergy/AdvReac Type Severity Reaction Status Date / Time tamsulosin [From Flomax] Allergy Intermediate LETHARGY Verified 09/13/20 01:01 Home Medications Home Medications Medication Instructions Recorded Confirmed Type carvedilol 12.5 mg PO HS 03/19/19 09/13/20 History aspirin 81 mg tablet,delayed 81 mg PO QPM 08/23/19 09/13/20 History release psyllium husk 1 tbsp PO QAM 12/12/19 09/13/20 History enalapril maleate 2.5 mg tablet 2.5 mg PO QPM #90 tab 07/01/20 09/13/20 Rx hydralazine 25 mg tablet 25 mg PO QAM #90 tab 07/01/20 09/13/20 Rx atorvastatin 80 mg PO QAM 09/13/20 09/13/20 History sulfasalazine 1,000 mg PO TID 09/13/20 09/13/20 History Past Med/Surg History Medical History CKD (chronic kidney disease) creatinine baseline 1.5-1.6 per chart review Hearing deficit History of prostate cancer Hx of skin cancer, basal cell nose s/p excision Hx of ulcerative colitis Hyperlipidemia Hypertension Left renal artery stenosis Surgical History History of cataract surgery RT/LEFT History of colonoscopy History of right-sided carotid endarterectomy 05/2019 @ [facility], [place] by Dr. Merino History of tonsillectomy Hx of hernia repair Left inguinal Hx of prostatectomy Hx of transurethral resection of prostate Family History Other No known health problems Social History Smoking Status: Former smoker Cigarettes Per Day: ~2ppd x 25 years; Second Hand Exposure: Yes (mom smoked); Hx Alcohol Use: No Hx Substance Use: No Preferred Language: Finnish Communication Ability: Effective Tax[employer] Propriet[employer] Required: No Beliefs That Will Affect Care: None Current Living Situation: Spouse Feels Safe at Home: Yes Assistive Devices: Glasses Review of Systems + anorexia; no fever and no chills no problem reported no problem reported no cough and no dyspnea no chest pain + abdominal pain and + nausea; no vomiting and no change in bowel habits no dysuria no back pain, no neck pain and no joint pain no problem reported no localized weakness and no generalized weakness no behavioral changes and no depression no fatigue Physical Exam Constitutional: well developed and well nourished; no acute distress Eyes: PERRL, conjunctivae normal, anicteric sclerae ENMT: external ear and nose normal, oropharynx normal Neck: trachea midline Respiratory: normal respiratory effort, lungs clear to auscultation Cardiovascular: RRR, no murmur, no edema Gastrointestinal (Abdomen): Inspection/Auscultation: abdomen normal to inspection and normal bowel sounds; abdomen not distended Percussion/Palpation: + abdomen tender and + guarding Musculoskeletal: Head/Neck/Chest: normocephalic and head atraumatic Skin: no rashes, warm and dry Psychiatric: Orientation: alert and oriented x 3 ASA Classification ASA ASA2E Results & Data ([facility]) Vital Signs (Past 12 Hours) Vital Signs Temp Pulse Resp BP Pulse Ox 09/13/20 05:00 18 140/75 94 09/13/20 04:34 58 L 16 147/78 H 95 09/13/20 03:00 18 142/79 H 94 09/13/20 02:30 18 160/83 H 95 09/13/20 02:00 63 19 177/91 H 91 09/13/20 01:30 64 20 174/96 H 93 09/13/20 01:00 63 21 198/98 H 94 09/13/20 00:39 70 25 H 194/103 H 93 09/13/20 00:03 66 19 241/108 H 09/12/20 23:49 36.9 C 97 H 20 178/96 H 96 Code Status & VTE Plan VTE Prophylaxis Plan VTE Prophylaxis will be ordered: Yes
[2020-09-13] MEDS ORDERED: oxyCODONE/ACETAMINOPHEN 5mg/325mg TAB PO PRN ×2 (06:22)
[2020-09-13] MEDS ORDERED: MoRPHine SULFATE 2 MG/ML CARP IV PRN (06:22)
[2020-09-13] MEDS ORDERED: MoRPHine SULFATE 10 MG/ML CARP/VIAL IV PRN (06:22)
[2020-09-13] MEDS ORDERED: MoRPHine SULFATE 4 MG/ML 1 ML CARP\\VIAL IV PRN (06:22)
[2020-09-13] MEDS ORDERED: ACETAMINOPHEN 325 MG TAB PO PRN (06:22)
[2020-09-13] MEDS ORDERED: PROMETHAZINE HCL 12.5 MG in SODIUM CHLORIDE 0.9% 50 ML IV PRN (06:24)
[2020-09-13] MEDS ORDERED: ONDANSETRON INJ 2 MG/ML 2 ML VIAL IV PRN ×2 (06:24→07:54)
[2020-09-13] MEDS ORDERED: EPINEPHrine INJ 1 MG/ML AMP ONE (06:40)
[2020-09-13] MEDS: LACTATED RINGER'S 1,000 ML IV SCH (06:40)
[2020-09-13] MEDS ORDERED: BUPIVACAINE 0.5 % 5 MG/1 ML MPF 30ML VIAL ONE (06:41)
[2020-09-13] MEDS ORDERED: fentaNYL citrate 100 MCG/2 ML VIAL ONE ×2 (06:58)
[2020-09-13] MEDS ORDERED: ONDANSETRON INJ 2 MG/ML 2 ML VIAL ONE (06:58)
[2020-09-13] MEDS ORDERED: LIDOCAINE HCL 2% 2 ML VIAL/AMP(20MG/ML) INFIL ONE (06:58)
[2020-09-13] MEDS ORDERED: PROPOFOL IV EMULSION 10 MG/ML 20 ML VIAL IV ONE (06:58)
[2020-09-13] MEDS ORDERED: ROCURONIUM BROMIDE 10 MG/ML 5 ML VIAL IV ONE (06:58)
--- NOTE | 2020-09-13 07:04 | XRay Report ---
XR chest 1V portable CLINICAL HISTORY: Preoperative evaluation. COMPARISON STUDY: Chest radiograph March 26, 2019. FINDINGS: Mild elevation of the right hemidiaphragm is unchanged. Right basilar opacity reflects atel ectasis. There is no pneumothorax or pleural effusion. There is no consolidation or evidence for pulm onary edema. Cardiomediastinal silhouette is stable. IMPRESSION: No acute cardiopulmonary findings. No change in appearance of the chest. ACT 112: Negative or not required by law. Electronically signed by: Adonis Chakraborty M.D. 09/13/2020 7:03 AM
--- NOTE | 2020-09-13 07:43 | CT Scan Report ---
CT OF THE ABDOMEN AND PELVIS WITH CONTRAST CLINICAL HISTORY: Abdominal pain. COMPARISON STUDY: Abdominal aortic ultrasound January 24, 2018. TECHNIQUE: Following IV administration of 94 mL of Optiray-320, axial images of the abdomen and pelvi s were obtained from the lung bases to the proximal femurs. Images were reviewed in the axial, sagitt al, and coronal planes. IV contrast was administered without complication. Automated exposure contro l was utilized for the study. A dose lowering technique was utilized adhering to the principles of A FELIX. Oral contrast was administered. CT DOSE: 733.82 mGy.cm FINDINGS: Elevation of the right hemidiaphragm is noted. There is no pneumatosis, free air or portal venous gas. The liver, spleen, adrenal glands are unremarkable. Note is made of a 2.5 cm right renal cyst. There is moderate left renal atrophy. There is no evidence for a bowel obstruction. Small appen dicoliths within the appendix are noted. The appendix is dilated, measuring 1.1 cm in caliber. The ap pendix is fluid-filled. The wall is thickened. Mild periappendiceal infiltration is noted. No free ai r or abscess. The prostate is surgically absent. There is no lymphadenopathy. Postoperative findings suggestive of a left inguinal hernia repair with mesh are noted. There are no suspicious osseous lesi ons. Gallstone within the gallbladder is noted. There is no evidence for acute cholecystitis. IMPRESSION: 1. Findings consistent with acute appendicitis. No free air or abscess. 2. Cholelithiasis. 3. Moderate left renal atrophy. ACT 112: Negative or not required by law. Electronically signed by: Adonis Chakraborty M.D. 09/13/2020 7:41 AM
--- NOTE | 2020-09-13 07:53 | Anesthesiology Consultation ---
Date of Service September 13, 2020 Assessment & Plan ASA [id number] Proposed Anesthesia Anesthesia Type: General Risk / Benefits Reviewed With: PT / POA / Parent / Guardian, Accepts Plan and Informed Consent Obtained History Surgery Operation Date: 09/13/20 06:10 Proposed Procedures p Laparoscopic Appendectomy - Neno Keyes MD Height/Weight Height: 5 ft 9 in Weight: 91.9 kg Allergies Allergy/AdvReac Type Severity Reaction Status Date / Time tamsulosin [From Flomax] Allergy Intermediate LETHARGY Verified 09/13/20 01:01 Medications Home Medications Medication Instructions Recorded Confirmed Last Taken carvedilol 12.5 mg PO HS 03/19/19 09/13/20 09/12/20 aspirin 81 mg tablet,delayed 81 mg PO QPM 08/23/19 09/13/20 09/12/20 release psyllium husk 1 tbsp PO QAM 12/12/19 09/13/20 09/12/20 enalapril maleate 2.5 mg tablet 2.5 mg PO QPM #90 tab 07/01/20 09/13/20 09/12/20 hydralazine 25 mg tablet 25 mg PO QAM #90 tab 07/01/20 09/13/20 09/12/20 atorvastatin 80 mg PO QAM 09/13/20 09/13/20 09/12/20 sulfasalazine 1,000 mg PO TID 09/13/20 09/13/20 09/12/20 Active Medications Generic Name Dose Route Start Last Admin Trade Name Freq PRN Reason Stop Dose Admin Sodium Chloride 1,000 mls @ 125 mls/hr 09/13/20 00:15 09/13/20 06:37 Nss 1000ml IV 10/13/20 00:14 Infused .Q8H NICOLE Infusion Lactated Ringer's 1,000 mls @ 75 mls/hr 09/13/20 06:30 09/13/20 06:40 Lr IV 10/13/20 06:29 75 mls/hr .[id number] NICOLE Administration NPO Date Last Intake of Fluids: 09/13/20 Time Last Intake of Fluids: 03:00 Last Intake of Fluids Comment: Oral contrast Date Last Intake of Solids: 09/12/20 Time Last Intake of Solids: 19:00 Last Intake of Solids Comment: salad Past Medical History Medical History Acute appendicitis with localized peritonitis CKD (chronic kidney disease) creatinine baseline 1.5-1.6 per chart review Hearing deficit History of prostate cancer Hx of skin cancer, basal cell nose s/p excision Hx of ulcerative colitis Hyperlipidemia Hypertension Left renal artery stenosis Exercise / Class Metabolic Activity II 4-5 Yardwork/Stairs/Walk up hill Past Family History Family History Other No known health problems Past Surgical History Surgical History History of cataract surgery RT/LEFT History of colonoscopy History of right-sided carotid endarterectomy 05/2019 @ [facility] by Dr. Merino History of tonsillectomy Hx of hernia repair Left inguinal Hx of prostatectomy Hx of transurethral resection of prostate Past Anesthesia History No Hx of Anesthesia Complications and No Family Hx of Anesthesia Complications History of PONV No Hx of PONV and No Hx of Motion Sickness Social History Smoking Status: Former smoker tobacco type: cigarettes Smoking cigarettes per day: ~2ppd x 25 years Hx Alcohol Use: No Hx Substance Use: No substance use type: does not use Review of Systems denies fever/cough/ colds/ chest pain/ SOB/ CHRIS denies CHRIS Physical Exam Vital Signs Last Vital Signs Temp 36.9 C 09/12/20 23:49 Pulse 63 09/13/20 06:30 Resp 19 09/13/20 06:30 BP 152/80 H 09/13/20 06:30 Pulse Ox 96 09/13/20 06:30 ENMT Mouth: no TMJ abnormality and no dentition abnormality Thyromental Distance: > or= 3.5 Finger Breadths Mallampati Class: II Neck neck extension not limited Respiratory normal respiratory effort; no respiratory distress Auscultation: lungs clear to auscultation bilaterally Cardiovascular Rate/Rhythm: regular rate and regular rhythm Neurologic moves all extremities Psychiatric Orientation: alert and oriented x 3 Testing Laboratory Results 09/13/20 00:30 09/13/20 00:30 PT 10.9 Seconds (9.0-12.0) 09/13/20 00:30 INR 1.0 (0.9-1.1) 09/13/20 00:30 Urine Color Yellow 09/13/20 Urine Appearance Clear (Clear) 09/13/20 Urine pH 8.0 (4.5-7.5) H 09/13/20 Ur Specific Ransom 1.016 (1.000-1.030) 09/13/20 Urine Protein Trace (Negative) H 09/13/20 Urine Glucose (UA) Negative (Negative) 09/13/20 Urine Ketones Negative (Negative) 09/13/20 Urine Nitrite Negative (Negative) 09/13/20 Ur Leukocyte Esterase Negative (Negative) 09/13/20 Urine WBC (Auto) 0 /hpf (0-5) 09/13/20 Urine RBC (Auto) 0-4 /hpf (0-4) 09/13/20 U Hyaline Cast (Auto) 0 /lpf (0-5) 09/13/20: U Epithel Cells (Auto) 0-5 /lpf (0-5) 09/13/20 Urine Bacteria (Auto) Negative (Negative) 09/13/20
[2020-09-13] MEDS ORDERED: fentaNYL citrate 100 MCG/2 ML VIAL IV PRN (07:54)
[2020-09-13] MEDS ORDERED: HYDROmorphone INJ 2 MG/ML SYR/VIAL IV PRN (07:54)
[2020-09-13] MEDS ORDERED: GLYCOPYRROLATE 0.2 MG/ML VIAL ONE (08:34)
[2020-09-13] MEDS ORDERED: NEOSTIGMINE METHYLSULFATE 5 MG/5 ML SYR ONE (08:34)
--- NOTE | 2020-09-13 08:51 | Post Operative Brief Note ---
Immediate Post Op Note v1 Date of Surgery September 13, 2020 Pre & Post Diagnosis Operation Date: 09/13/20 06:10 Pre-Op Diagnosis: acute appendicitis Post-Op Diagnosis: acute appendicitis I identified the patient and participated in the time-out.: Yes Procedure Operation Date: 09/13/20 06:10 Actual Procedures p Laparoscopic Appendectomy(Not Applicable) - Neno Keyes MD Surgeon Neno Keyes MD Applications Intern none Estimated Blood Loss 30 Findings Consistent with Post-Op Diagnosis
[2020-09-13] MEDS ORDERED: LABETALOL HCL IV 5 MG/ML 20ML IV ONE (09:00)
[2020-09-13] MEDS ORDERED: hydrALAZINE HCL 20 MG/ML VIAL IV STA (09:03)
[2020-09-13] MEDS ORDERED: hydrALAZINE HCL 20 MG/ML VIAL ONE (09:05)
--- NOTE | 2020-09-13 10:25 | Anesthesiology Progress Note ---
Date of Service September 13, 2020 Anesthesia Post Procedure Vital Signs Vital Signs: Temp Pulse Pulse Resp BP BP Pulse Ox 09/13/20 09:35 36.7 C 71 16 146/73 H 96 09/13/20 09:25 69 17 150/68 H 94 09/13/20 09:15 66 20 158/75 H 95 09/13/20 09:05 73 13 190/83 H 96 09/13/20 08:57 36.6 C 65 16 223/114 H 97 09/13/20 06:30 63 19 152/80 H 96 09/13/20 06:23 60 21 174/88 H 96 09/13/20 05:00 18 140/75 94 09/13/20 04:34 58 L 16 147/78 H 95 09/13/20 03:00 18 142/79 H 94 09/13/20 02:30 18 160/83 H 95 09/13/20 02:00 63 19 177/91 H 91 09/13/20 01:30 64 20 174/96 H 93 09/13/20 01:00 63 21 198/98 H 94 09/13/20 00:39 70 25 H 194/103 H 93 09/13/20 00:03 66 19 241/108 H 09/12/20 23:49 36.9 C 97 H 20 178/96 H 96 Pain Intensity Abdomen: Pain Intensity: 4 Transfer of Care Handoff Completed per policy Notes Mental Status: alert / awake / arousable and participated in evaluation Patient Amnestic to Procedure: Yes Nausea / Vomiting: adequately controlled Pain: adequately controlled Airway Patency, RR, SpO2: stable & adequate BP & HR: stable & adequate Hydration State: stable & adequate Anesthetic Complications: no major complications apparent and Pt Satisfied with anesthetic care
[2020-09-13] MEDS ORDERED: PSYLLIUM 58.6% POWDER PACKET PO ONE (10:30)
[2020-09-13] MEDS: hydrALAZINE HCL 25 MG TAB PO SCH (11:22)
[2020-09-13] MEDS: sulfaSALAzine 500 MG TABLET PO SCH ×3 (11:22→20:27)
[2020-09-13] MEDS: ATORVASTATIN 40 MG TAB PO SCH (11:22)
--- NOTE | 2020-09-13 11:48 | Operative Report (OR) ---
DATE OF OPERATION: 09/13/2020 PREOPERATIVE DIAGNOSIS: Acute appendicitis. POSTOPERATIVE DIAGNOSIS: Acute appendicitis. PROCEDURE PERFORMED: Laparoscopic appendectomy. SURGEON: Neno Keyes MD. COPING MACHINE OPERATOR: None. ANESTHESIA: General endotracheal with 0.5% Marcaine with epinephrine local, 20 mL ESTIMATED BLOOD LOSS: 30 mL SPECIMENS: Appendix sent for pathologic evaluation. COMPLICATIONS: None. DRAINS: None. INDICATION FOR PROCEDURE: This is a 74-year-old male who presented to ED with abdominal pain. He underwent a workup which showed acute appendicitis. We talked in detail about the risks including open procedure, abscess, bleeding requiring transfusion, wound problems, ileus and potential reoperation with CT-guided drainage. He understands all this and wishes to proceed. DESCRIPTION OF PROCEDURE: The patient was taken to the OR and underwent excellent general endotracheal anesthesia. His abdomen was prepped and draped in normal sterile fashion. Transverse supraumbilical incision was made and a Veress needle was then used to enter the abdominal cavity with attention on the upper abdominal wall. Good pneumoperitoneum was then achieved. A visualized 11 port was then placed. A 12 left lower quadrant, a 5 suprapubic, and 5 right upper quadrant port were also placed in normal fashion. The patient was placed in head down and rolled to the left. His cecum was identified and grasped with an atraumatic grasper. His appendix was inflamed and stuck down into his right lower quadrant. This was teased free using blunt dissection. Harmonic scalpel was then used to free up the mesoappendix. There was some bleeding which was controlled with 2 clips. Once the base of the appendix was identified, a PAYAL 60 alexander load stapler was used to transect the appendix at its base. In removing the appendix, the appendix did rip, but there was no spillage of any material. The appendix was put into an Endobag and brought out and sent for pathologic for evaluation. The abdomen was then irrigated out with a liter of saline. The bleeding was controlled. At the time of procedure, there was no active bleeding. No other abnormalities were noted. The ports were then removed. The 0 Vicryl was used to close the fascial defects and 11 and 12 mm ports. Marcaine 0.5% was then used to create a local field block. Interrupted Vicryl was used to close the skin. Steri-Strips and benzoin were used to close the incisions. Sterile dressings were applied. The patient tolerated the procedure well without complications, sent to postop recovery for a period of observation and be sent to the floor for his care. I attest to the content of the Intraoperative Record and any orders documented therein. Any exception s are noted below.
[2020-09-13] MEDS ORDERED: INFLUENZA ADMINISTRATION CHARGE ONE (11:58)
[2020-09-13] MEDS ORDERED: INFLUENZA VIRUS QUAD VACCINE 0.5 ML SYR IM ONE (11:58)
[2020-09-13] MEDS ORDERED: cefOXitin 2,000 MG in DEXTROSE 5% 50 ML IV SCH (12:00)
[2020-09-13] MEDS: cefOXitin 2,000 MG in DEXTROSE 5% 50 ML IV SCH ×2 (14:59→22:20)
[2020-09-13] MEDS ORDERED: ASPIRIN 81 MG ECTAB PO SCH (21:00)
[2020-09-13] MEDS ORDERED: carvediloL 12.5 MG TAB PO SCH (21:00)
[2020-09-13] MEDS ORDERED: ENALAPRIL MALEATE 5 MG TAB PO SCH (21:00)
[2020-09-14] MEDS: LACTATED RINGER'S 1,000 ML IV SCH ×2 (00:24→10:00)
[2020-09-14] MEDS: cefOXitin 2,000 MG in DEXTROSE 5% 50 ML IV SCH (05:59)
[2020-09-14 07:53] VITALS: BP 165/85; TEMP 97.7; O2SAT 92
[2020-09-14] MEDS: hydrALAZINE HCL 25 MG TAB PO SCH (08:36)
[2020-09-14] MEDS: ATORVASTATIN 40 MG TAB PO SCH (08:36)
[2020-09-14] MEDS: sulfaSALAzine 500 MG TABLET PO SCH (08:37)
--- NOTE | 2020-09-14 08:43 | Surgery Progress Note ---
Date of Service September 14, 2020 Assessment & Plan (1) Acute appendicitis: doing well discharge follow up 2 weeks Admission and Anticipated Discharge Date Admission Date: September 13, 2020 Subjective doing well taking po pain controlled without narcotics Review of Systems Constitutional: no fever and no chills Respiratory: no dyspnea Cardiovascular: no chest pain Gastrointestinal: + abdominal pain; no nausea and no vomiting Genitourinary: no dysuria Musculoskeletal: no back pain Integumentary: no problem reported Physical Exam Constitutional: well developed and well nourished; no acute distress Neck: trachea midline Respiratory: normal respiratory effort, lungs clear to auscultation Cardiovascular: RRR, no murmur, no edema Gastrointestinal (Abdomen): Inspection/Auscultation: normal bowel sounds; abdomen not distended Percussion/Palpation: + abdomen tender (mild post op) Musculoskeletal: Head/Neck/Chest: normocephalic and head atraumatic Skin: no rashes, warm and dry Results & Data ([facility]) Vital Signs (Past 12 Hours) Vital Signs Temp Pulse Resp BP Pulse Ox 09/14/20 07:50 36.5 C 67 16 165/85 H 92 09/14/20 03:00 37.0 C 73 18 146/73 H 91 09/13/20 23:01 37.1 C 75 18 146/72 H 90 09/13/20 21:19 153/74 H (1) Acute appendicitis Acute appendicitis type: unspecified acute appendicitis type Qualified Code(s): K35.80 - Unspecified acute appendicitis
[2020-09-14] MEDS ORDERED: PSYLLIUM 58.6% POWDER PACKET PO SCH (09:00)
[2020-09-14 09:29] VITALS: PULSE 82
--- NOTE | 2020-09-14 09:56 | Discharge Summary (DS) ---
DIAGNOSES: 1. Acute appendicitis, status post laparoscopic appendectomy. 2. Hypertension. 3. Ulcerative colitis. 4. Hypertension. 5. Chronic kidney disease. 6. Hyperlipidemia. ATTENDING PHYSICIAN: Neno Keyes MD PROCEDURE PERFORMED: Laparoscopic appendectomy on 09/13/2020. HISTORY OF PRESENT ILLNESS: This is a 74-year-old male who presented to the Emergency Department complaining of lower abdominal pain. He underwent a workup, which showed an acute appendicitis with a fecalith by CT scan. He was counseled to undergo a laparoscopic appendectomy. HOSPITAL COURSE: The patient was admitted, placed on IV fluids, IV antibiotics, was taken to the OR and underwent uncomplicated laparoscopic appendectomy. He was sent to the floor. Postop his recovery went without incident. His blood pressure was well controlled. He was tolerating a diet. He had good pain control without narcotics. He continued to advance and was discharged home on postoperative day #1. DISCHARGE MEDICATIONS: Sulfasalazine 1000 mg p.o. t.i.d., atorvastatin 80 mg p.o. q.a.m., carvedilol 12.5 mg p.o. at bedtime, enalapril 12.5 mg p.o. q.a.m., hydralazine 25 mg p.o. q.a.m., and psyllium husk 1 tablespoon p.o. q.a.m. DIET: Regular as tolerated. ACTIVITY: No strenuous activity or lifting greater than 20 pounds. FOLLOWUP: [facility]. [facility]
--- NOTE | 2020-09-14 21:36 | Electrocardiogram Report ---
Test Reason : Blood Pressure : / mmHG Vent. Rate : 065 BPM Atrial Rate : 065 BPM P-R Int : 196 ms QRS Dur : 080 ms QT Int : 408 ms P-R-T Axes : 048 005 027 degrees QTc Int : 424 ms Normal sinus rhythm Normal ECG When compared with ECG of 22-NOV-2011 09:59, No significant change was found Confirmed by Palmer Soler ([id number]) on 09/14/2020 9:36:01 PM Referred By: REFERRED SELF Confirmed By:Palmer Soler
== END 2020-09-14 10:26 | disposition home or self-care (01) ==
LOC: ED 23:44 → 3N 23:44
DX: Z87.891 Personal history of nicotine dependence; N18.9 Chronic kidney disease, unspecified; K35.80 Unspecified acute appendicitis; Z79.899 Other long term (current) drug therapy; Z79.82 Long term (current) use of aspirin; Z88.8 Allergy status to other drugs, medicaments and biological substances; E78.5 Hyperlipidemia, unspecified; K51.90 Ulcerative colitis, unspecified, without complications; I12.9 Hypertensive chronic kidney disease with stage 1 through stage 4 chronic kidney disease, or unspecified chronic kidney disease

== ENCOUNTER 2021-10-05 18:17 | Inpatient (IN) ==
[2021-10-05] MEDS ORDERED: SODIUM CHLORIDE 0.9% 500 ML IV ONE (19:12)
--- NOTE | 2021-10-05 19:35 | Emergency Department Note ---
History of Present Illness General Chief complaint: Fall Stated complaint: FALL; LAC ON FACE, HIT HEAD, CHEST DISCOMFORT History of Present Illness Maximum Pain Intensity: 4 This patient is a 75-year-old male the presents the emergency department via private vehicle for evaluation after a fall that occurred immediately prior to arrival. The patient reports going to the mailbox. He reports falling and hitting his head. He thinks that he may have passed out. He denies any prior lightheadedness or dizziness. He did hit his head. He takes a baby aspirin daily. He denies any neck pain. He is having some dull pain in the left side of his chest where he hit the ground. He denies any abdominal pain. He denies any pain in his extremities. He denies any neck or back pain. He has not taken anything for pain. He denies any recent illnesses. He has been eating and drinking normally. No nausea or vomiting. No black or bloody stools. Home Medications Medication Instructions Recorded Confirmed Type aspirin 81 mg tablet,delayed 81 mg PO QPM 08/23/19 10/05/21 History release (Adult Low Dose Aspirin) psyllium husk 3.4 gram/5.4 gram 1 tbsp PO QAM 12/12/19 10/05/21 History oral powder atorvastatin 80 mg tablet 80 mg PO QAM 09/13/20 10/05/21 History hydralazine 25 mg tablet 25 mg PO QAM #90 tab 05/22/21 10/05/21 Rx carvedilol 12.5 mg tablet 12.5 mg PO HS #180 tab 09/25/21 10/05/21 Rx enalapril maleate 2.5 mg tablet 2.5 mg PO QPM #90 tab 09/25/21 10/05/21 Rx sulfasalazine 500 mg tablet 1,000 mg PO TID #540 tab 10/02/21 10/05/21 Rx Allergies Allergy/AdvReac Type Severity Reaction Status Date / Time tamsulosin [From Flomax] Allergy Intermediate LETHARGY Verified 10/05/21 10:35 Past Med/Surg History Medical History (Updated 10/06/21 @ 16:24 by Moy Landers MD) Acute appendicitis Acute appendicitis with localized peritonitis CKD (chronic kidney disease) creatinine baseline 1.5-1.6 per chart review Hearing deficit History of prostate cancer Hx of skin cancer, basal cell nose s/p excision Hx of ulcerative colitis Hyperlipidemia Hypertension Left renal artery stenosis Surgical History History of cataract surgery RT/LEFT History of colonoscopy History of right-sided carotid endarterectomy 05/[address] [facility] by Dr. Merino History of tonsillectomy Hx of hernia repair Left inguinal Hx of prostatectomy Hx of transurethral resection of prostate Family History Other No known health problems Social History Smoking Status: Former smoker Cigarettes Per Day: ~2ppd x 25 years; Second Hand Exposure: No; Do You Dip or Chew Tobacco: No; Hx Alcohol Use: No Hx Substance Use: No Preferred Language: [place] Citizen Communication Ability: Effective Visual Impairment: No Limitations Ceramic Tiler Required: No Beliefs That Will Affect Care: None marital status: Current Living Situation: Spouse Other Information That Helps Us Care for You: No Feels Safe at Home: Yes Safety Concerns: Feels Safe At This Time Assistive Devices: None Review of Systems A total of 10 systems reviewed and were otherwise negative Physical Exam Vital Signs Vital Signs - 24 hr 10/05/21 18:38 10/05/21 21:41 10/05/21 22:00 Temperature 36.4 C L Temperature Source Oral Pulse Rate 103 H 82 84 Pulse Rhythm Regular Pulse Strength Normal Respiratory Rate 18 16 25 H Respiratory Effort / Characteristics Non-Labored Spontaneous Respiratory Depth Normal Respiratory Pattern Regular Blood Pressure 180/78 H Blood Pressure Mean 112 Blood Pressure Position Sitting Pulse Oximetry 97 Oxygen Delivery Method Room Air Sepsis Recent Fever Within 48 Hours No Sepsis New/Unexplained Change in Mental Status No Sepsis Action Taken by Nursing No Action Required 10/05/21 22:30 Temperature Temperature Source Pulse Rate 77 Pulse Rhythm Pulse Strength Respiratory Rate 23 Respiratory Effort / Characteristics Respiratory Depth Respiratory Pattern Blood Pressure 170/98 H Blood Pressure Mean 122 Blood Pressure Position Pulse Oximetry Oxygen Delivery Method Sepsis Recent Fever Within 48 Hours Sepsis New/Unexplained Change in Mental Status Sepsis Action Taken by Nursing See below Constitutional WD/WN, vitals as above Eyes EOM intact bilaterally ENMT external ear and nose normal, oropharynx normal 0.5 cm, superficial, nongaping laceration noted lateral to the left eye. No active bleeding noted. No foreign material in the wound. It appears clean. No tenderness over the facial bones. Neck trachea midline Respiratory normal respiratory effort, lungs clear to auscultation Cardiovascular RRR, no murmur, no edema Gastrointestinal (Abdomen) normal bowel sounds, soft, nontender, no hepatosplenomegaly Musculoskeletal no cyanosis or clubbing, extremities motor strength 5/5 Skin no rashes, warm and dry Neurologic Alert and oriented x3. No focal motor deficits. Psychiatric Acting appropriately Course Course Patient was seen and examined Vital signs including blood pressure were reviewed medications list was verified with patient Labs were obtained, and a saline lock was established An order was placed for continuous cardiac monitoring. The monitor shows a rate of A. fib with 102 rhythm." An EKG was performed The case was discussed with my supervising physician Imaging was performed reviewed The patient was hydrated with 500 cc of normal saline The case was discussed with my supervising physician who personally evaluated the patient The patient was reassessed. We discussed his findings. He voiced understanding. Hospitalist was consulted. They agreed to see the patient for likely inpatient management. The patient remained stable in the emergency department. Consultations Consultation #1: Dr. Arboleda Administered Medications Aspirin (Aspirin 81 Mg Ectab) 81 mg PO QPM [facility] Stop: 11/05/21 20:59 Last Admin: 10/06/21 20:19 Dose: 81 mg Documented by: [id number] Atorvastatin Calcium (Atorvastatin 40 Mg Tab) 80 mg PO QAM [facility] Stop: 11/05/21 08:59 Last Admin: 10/06/21 08:17 Dose: 80 mg Documented by: [id number] Enalapril Maleate (Enalapril Maleate 5 Mg Tab) 2.5 mg PO QPM [facility] Stop: 11/05/21 20:59 Last Admin: 10/06/21 20:18 Dose: 2.5 mg Documented by: [id number] Hydralazine HCl (Hydralazine Hcl 25 Mg Tab) 25 mg PO QAM [facility] [place] Stop: 11/05/21 08:59 Last Admin: 10/06/21 08:17 Dose: 25 mg Documented by: [id number] Ceftriaxone Sodium 2,000 mg/ (Dextrose) 70 mls @ 100 mls/hr IV DAILY [facility]; Protocol Stop: 10/16/21 13:59 Last Infusion: 10/06/21 16:21 Dose: 0 mls/hr Documented by: [id number] Admin: 10/06/21 15:35 Dose: 100 mls/hr Documented by: [id number] Sulfasalazine (Sulfasalazine 500 Mg Tablet) 1,000 mg PO TID NICOLE Stop: 11/05/21 08:59 Last Admin: 10/06/21 20:20 Dose: 1,000 mg Documented by: [id number] Admin: 10/06/21 15:36 Dose: 1,000 mg Documented by: [id number] Admin: 10/06/21 08:17 Dose: 1,000 mg Documented by: [id number] Discontinued Medications Apixaban (Apixaban 5 Mg Tablet) 5 mg PO BID NICOLE Stop: 11/05/21 08:59 Last Admin: 10/06/21 11:07 Dose: Not Given Documented by: [id number] Carvedilol (Carvedilol 12.5 Mg Tab) 12.5 mg PO NOW ONE Stop: 10/05/21 21:48 Last Admin: 10/05/21 21:59 Dose: 12.5 mg Documented by: [id number] Enalapril Maleate (Enalapril Maleate 5 Mg Tab) 2.5 mg PO NOW STA Stop: 10/05/21 21:48 Last Admin: 10/05/21 21:59 Dose: 2.5 mg Documented by: [id number] Furosemide (Furosemide Inj 20 Mg/2 Ml Vial) 20 mg IV ONE ONE Stop: 10/06/21 09:10 Last Admin: 10/06/21 13:03 Dose: 20 mg Documented by: [id number] Hydralazine HCl (Hydralazine Hcl 20 Mg/Ml Vial) 5 mg IV NOW ONE Stop: 10/06/21 23:27 Last Admin: 10/06/21 23:39 Dose: 5 mg Documented by: [id number] Sodium Chloride (Nss) 500 mls @ 999 mls/hr IV .Q31M ONE Stop: 10/05/21 19:42 Last Infusion: 10/05/21 20:19 Dose: 999 mls/hr Documented by: [id number] Admin: 10/05/21 19:47 Dose: 999 mls/hr Documented by: [id number] Lactated Ringer's (Lr) 1,000 mls @ 15 mls/hr IV .Q24H NICOLE Stop: 10/09/21 11:09 Last Admin: 10/06/21 17:08 Dose: Not Given Documented by: [id number] Ioversol (Optiray 320 100ml) 98 ml IV ONCE ONE Stop: 10/05/21 20:39 Last Admin: 10/05/21 20:42 Dose: 98 ml Documented by: [id number] Medical Decision Making Medical Records Attestation: I reviewed the patient's medical records. Home Medications Current Medication List: was personally reviewed by me Laboratory Data Attestation: I reviewed the patient's lab results. Result diagrams: 10/06/21 06:18 10/06/21 06:18 Lab Results 10/05/21 10/05/21 10/05/21 Range/Units 19:39 19:39 19:39 WBC 6.68 (4.8-10.8) K/uL RBC 4.15 L (4.7-6.1) M/uL Hgb 11.7 L (14.0-18.0) g/dL Hct 37.3 L (42-52) % MCV 89.9 (80-100) fL MCH 28.2 (25-34) pg MCHC 31.4 L (32-36) g/dL RDW Std Deviation 51.6 H (36.4-46.3) fL RDW Coeff of Gini 15.6 H (11.5-14.5) % Plt Count 209 (130-400) K/uL MPV 8.9 (7.4-10.4) fL Immature Gran % (Auto) 0.4 % Neut % (Auto) 74.1 % Lymph % (Auto) 12.1 % [place] % (Auto) 11.4 % Eos % (Auto) 1.6 % Baso % (Auto) 0.4 % Neut # (Auto) 4.94 (1.4-6.5) K/uL Lymph # (Auto) 0.81 L (1.2-3.4) K/uL [place] # (Auto) 0.76 H (0.11-0.59) K/uL Eos # (Auto) 0.11 (0-0.5) K/uL Baso # (Auto) 0.03 (0-0.2) K/uL Immature Gran # (Auto) 0.03 H (0.00-0.02) K/uL PT 10.5 (9.0-12.0) Seconds INR 1.0 (0.9-1.1) Sodium 138 (136-145) mmol/L Potassium 4.6 (3.5-5.1) mmol/L Chloride 107 (98-107) mmol/L Carbon Dioxide 24 (21-32) mmol/L Anion Gap 7.0 (3-11) BUN 19 H (7-18) mg/dl Creatinine 1.27 (0.6-1.4) mg/dl Est Cr Clr Drug Dosing 53.0 ml/min Est GFR ( Amer) 62.7 ml/min Est GFR (Non-Af Amer) 54.1 ml/min BUN/Creatinine Ratio 14.9 (10-20) Glucose 108 H (70-99) mg/dl Calcium 8.3 L (8.5-10.1) mg/dl Phosphorus 3.3 (2.5-4.9) mg/dl Magnesium 2.1 (1.8-2.4) mg/dl Total Bilirubin 0.4 (0.2-1) mg/dl AST 18 (15-37) U/L ALT 34 (12-78) U/L Alkaline Phosphatase 113 (45-117) U/L Troponin I < 0.015 (0-0.045) ng/ml NT-Pro-B Natriuret Pep Cancelled Total Protein 7.6 (6.4-8.2) gm/dl Albumin 3.4 (3.4-5.0) gm/dl Globulin 4.2 H (2.5-4.0) gm/dl Albumin/Globulin Ratio 0.8 L (0.9-2) TSH (0.300-4.500) uIu/ml COVID-19 Eval Order SARS-CoV-2 (PCR) (Negative) 10/05/21 10/05/21 10/05/21 Range/Units 19:39 21:50 21:50 WBC (4.8-10.8) K/uL RBC (4.7-6.1) M/uL Hgb (14.0-18.0) g/dL Hct (42-52) % MCV (80-100) fL MCH (25-34) pg MCHC (32-36) g/dL RDW Std Deviation (36.4-46.3) fL RDW Coeff of Gini (11.5-14.5) % Plt Count (130-400) K/uL MPV (7.4-10.4) fL Immature Gran % (Auto) % Neut % (Auto) % Lymph % (Auto) % [place] % (Auto) % Eos % (Auto) % Baso % (Auto) % Neut # (Auto) (1.4-6.5) K/uL Lymph # (Auto) (1.2-3.4) K/uL [place] # (Auto) (0.11-0.59) K/uL Eos # (Auto) (0-0.5) K/uL Baso # (Auto) (0-0.2) K/uL Immature Gran # (Auto) (0.00-0.02) K/uL PT (9.0-12.0) Seconds INR (0.9-1.1) Sodium (136-145) mmol/L Potassium (3.5-5.1) mmol/L Chloride (98-107) mmol/L Carbon Dioxide (21-32) mmol/L Anion Gap (3-11) BUN (7-18) mg/dl Creatinine (0.6-1.4) mg/dl Est Cr Clr Drug Dosing ml/min Est GFR ( Amer) ml/min Est GFR (Non-Af Amer) ml/min BUN/Creatinine Ratio (10-20) Glucose (70-99) mg/dl Calcium (8.5-10.1) mg/dl Phosphorus (2.5-4.9) mg/dl Magnesium (1.8-2.4) mg/dl Total Bilirubin (0.2-1) mg/dl AST (15-37) U/L ALT (12-78) U/L Alkaline Phosphatase (45-117) U/L Troponin I (0-0.045) ng/ml NT-Pro-B Natriuret Pep 3421 H Total Protein (6.4-8.2) gm/dl Albumin (3.4-5.0) gm/dl Globulin (2.5-4.0) gm/dl Albumin/Globulin Ratio (0.9-2) TSH 3.820 (0.300-4.500) uIu/ml COVID-19 Eval Order Covid19 at [facility] SARS-CoV-2 (PCR) NEGATIVE (Negative) Imaging Data Attestation: I personally reviewed and interpreted this imaging study as follows: Radiologist's Impression: Abdomen/Pelvis CT 10/05/21 19:[address] WITH CONTRAST; CT ABDOMEN AND PELVIS WITH IV CONTRAST ONLY HISTORY: Acute left-sided chest pain status post trauma L chest pain fall TECHNIQUE: Multiaxial CT images of the chest, abdomen and pelvis were performed following the IV administration of 98 cc of Optiray. A dose lowering technique was utilized adhering to the principles of ALARA. COMPARISON: CT thoracic and lumbar spine studies of same day FINDINGS: CT CHEST: Multinodular thyroid with hypodense 1.4 cm right thyroid nodule. Nonspecific mediastinal and hilar adenopathy with right hilar lymph nodes measuring up to 1.2 cm. The heart is upper limits of normal in size. Moderate coronary artery calcifications. No thoracic aortic aneurysm or dissection. Unremarkable pulmonary artery moderate hemidiaphragmatic elevation. Trace pleural effusions. No pneumothorax. Intralobular septal thickening with bronchial wall thickening. Mild dependent subsegmental bibasilar atelectasis. T here are no suspicious pulmonary nodules or masses identified. The central airways are patent. No acute fracture identified. Spondylitic spurring of the thoracic spine with mild intervertebral disc space narrowing and facet arthrosis. CT ABDOMEN AND PELVIS: No pneumatosis or pneumoperitoneum. Unremarkable spleen, pancreas, and adrenal glands. Cholelithiasis. No biliary ductal dilation. Unremarkable liver. Patent portal vein. Mild nonspecific bilateral perinephric stranding. The left kidney is atrophic measuring up to 7.4 cm in length. Prostatectomy. Unremarkable urinary bladder. Prior left-sided inguinal hernia repair. Atherosclerosis of the aorta. Mild nonspecific distal esophageal wall thickening. Duodenal diverticulosis. Mild fecal retention. No bowel obstruction or bowel wall thickening. Appendectomy. Unremarkable soft tissues. No acute fracture identified. Degenerative changes of the spine, pelvis and hips. Lumbar levoscoliosis. IMPRESSION: 1. Cardiomegaly with mild pulmonary edema and trace pleural effusions. 2. No acute intra-abdominal or intrapelvic abnormality. 3. Moderately atrophic left kidney. 4. No acute fracture identified. 5. Additional findings as above. ACT 112: Negative or not required by law. Electronically signed by: Parth Mario M.D. 10/05/2021 9:[address] 10/05/21 19:12 CT cervical spine wo con CLINICAL HISTORY: 75 years-old Male with fall. Acute head and neck injury status post fall COMPARISON: Head CT of same day TECHNIQUE: Multiple axial CT images of the cervical spine were obtained without contrast. A dose lowering technique was utilized adhering to the principles of ALARA. FINDINGS: Multilevel intervertebral disc space narrowing, moderate at C6-C7. No acute fracture or subluxation. Multilevel neural foraminal narrowing. No prever tebral edema. Multinodular thyroid. Calcified plaque of the left carotid artery. Prior right-sided carotid endarterectomy. Intralobular septal thickening of the lungs. Moderate multilevel facet arthrosis. Mild to moderate spondylitic spurring with small posterior disc osteophyte complex formations. IMPRESSION: 1. No acute fracture or subluxation. 2. Intralobular septal thickening of the lung apices suggestive of pulmonary edema 3. Prior right-sided carotid endarterectomy. ACT 112: Negative or not required by law. The above report was generated using voice recognition software. It may contain grammatical, syntax or spelling errors. Electronically signed by: Parth Mario M.D. 10/05/2021 8:[address] 10/05/21 19:[address] WITH CONTRAST; CT ABDOMEN AND PELVIS WITH IV CONTRAST ONLY HISTORY: Acute left-sided chest pain status post trauma L chest pain fall TECHNIQUE: Multiaxial CT images of the chest, abdomen and pelvis were performed following the IV administration of 98 cc of Optiray. A dose lowering technique was utilized adhering to the principles of ALARA. COMPARISON: CT thoracic and lumbar spine studies of same day FINDINGS: CT CHEST: Multinodular thyroid with hypodense 1.4 cm right thyroid nodule. Nonspecific mediastinal and hilar adenopathy with right hilar lymph nodes measuring up to 1.2 cm. The heart is upper limits of normal in size. Moderate coronary artery calcifications. No thoracic aortic aneurysm or dissection. Unremarkable pulmon tawnya artery moderate hemidiaphragmatic elevation. Trace pleural effusions. No pneumothorax. Intralobular septal thickening with bronchial wall thickening. Mild dependent subsegmental bibasilar atelectasis. There are no suspicious pulmonary nodules or masses identified. The central airways are patent. No acute fracture identified. Spondylitic spurring of the thoracic spine with mild intervertebral disc space narrowing and facet arthrosis. CT ABDOMEN AND PELVIS: No pneumatosis or pneumoperitoneum. Unremarkable spleen, pancreas, and adrenal glands. Cholelithiasis. No biliary ductal dilation. Unremarkable liver. Patent portal vein. Mild nonspecific bilateral perinephric stranding. The left kidney is atrophic measuring up to 7.4 cm in length. Prostatectomy. Unremarkable urinary bladder. Prior left-sided inguinal hernia repair. Atherosclerosis of the aorta. Mild nonspecific distal esophageal wall thickening. Duodenal diverticulos is. Mild fecal retention. No bowel obstruction or bowel wall thickening. Appendectomy. Unremarkable soft tissues. No acute fracture identified. Degenerative changes of the spine, pelvis and hips. Lumbar levoscoliosis. IMPRESSION: 1. Cardiomegaly with mild pulmonary edema and trace pleural effusions. 2. No acute intra-abdominal or intrapelvic abnormality. 3. Moderately atrophic left kidney. 4. No acute fracture identified. 5. Additional findings as above. ACT 112: Negative or not required by law. Electronically signed by: Parth Mario M.D. 10/05/2021 9:24 PM Chest X-Ray 10/05/21 19:12 XR chest 1V portable HISTORY: 75 years-old Male syncope acute syncope COMPARISON: Chest radiographs 09/11/2021 TECHNIQUE: Portable AP view of the chest FINDINGS: Cardiac silhouette is enlarged. Moderate hemidiaphragmatic elevation. Pulmonary vascular congestion. There are new reticular bilateral interstitial opacities. Mild blunting of the costophrenic angles. No pneumothorax or large pleural effusion. Degenerative changes of the shoulders and spine. IMPRESSION: Cardiomegaly with bilateral interstitial opacities suggestive of pulmonary edema versus interstitial pneumonitis, new from 09/11/2021. ACT 112: Negative or not required by law. The above report was generated using voice recognition software. It may contain grammatical, syntax or spelling errors. Electronically signed by: Parth Mario M.D. 10/05/2021 7:[address] 10/05/21 19:12 CT thoracic spine w con, CT lumbar spine w con HISTORY: 75 years-old Male fall acute back pain status post trauma COMPARISON: CT chest, abdomen and pelvis of same day TECHNIQUE: Multiple axial CT images of the thoracic and lumbar spine were obtained without the use of IV contrast. A dose lowering technique was used consistent with the principals of PACHECO. FINDINGS: THORACIC: Mild multilevel intervertebral disc space narrowing with mild to moderate anterior endplate bridging osteophytosis and mostly mild facet arthrosis. No a cute fracture, subluxation or endplate erosion. Evaluation of the central canal and neuroforamina is better assessed by MRI technique. Trace pleural effusions with pulmonary edema and mild bibasilar atelectasis. Mild nonspecific mid to distal esophageal wall thickening. LUMBAR: Transitional lumbosacral anatomy 4 mm anterolisthesis L4 on L5 is likely degenerative with severe L4-L5 and L5-S1 facet arthrosis. Minimal multilevel intervertebral disc space narrowing with mild spondylitic spurring and small posterior disc osteophyte complex formations. Mild lumbar levoscoliosis. No acute fracture or subluxation. Evaluation of the central canal and neuroforamina is better assessed by MRI. There is at least moderate central canal stenosis at L3-L4. IMPRESSION: 1. No acute fracture or subluxation. 2. Degenerative changes as above. ACT 112: Negative or not required by law. The above report was generated using voice recognition software. It may contain grammatical, syntax or spelling errors. Electronically signed by: Parth Mario M.D. 10/05/2021 9:[address] 10/05/21 19:12 CT thoracic spine w con, CT lumbar spine w con HISTORY: 75 years-old Male fall acute back pain status post trauma COMPARISON: CT chest, abdomen and pelvis of same day TECHNIQUE: Multiple axial CT images of the thoracic and lumbar spine were obtained without the use of IV contrast. A dose lowering technique was used consistent with the principals of ALARA. FINDINGS: THORACIC: Mild multilevel intervertebral disc space narrowing with mild to moderate anterior endplate bridging osteophytosis and mostly mild facet arthrosis. No acute fracture, subluxation or endplate erosion. Evaluation of the central canal and neuroforamina is better assessed by MRI technique. Trace pleural effusions with pulmonary edema and mild bibasilar atelectasis. Mil d nonspecific mid to distal esophageal wall thickening. LUMBAR: Transitional lumbosacral anatomy 4 mm anterolisthesis L4 on L5 is likely degenerative with severe L4-L5 and L5-S1 facet arthrosis. Minimal multilevel intervertebral disc space narrowing with mild spondylitic spurring and small posterior disc osteophyte complex formations. Mild lumbar levoscoliosis. No acute fracture or subluxation. Evaluation of the central canal and neuroforamina is better assessed by MRI. There is at least moderate central canal stenosis at L3-L4. IMPRESSION: 1. No acute fracture or subluxation. 2. Degenerative changes as above. ACT 112: Negative or not required by law. The above report was generated using voice recognition software. It may contain grammatical, syntax or spelling errors. Electronically signed by: Parth Mario M.D. 10/05/2021 9:[address] 10/05/21 19:56 CT head/brain wo con CLINICAL HISTORY: 75 years-old Male with syncope. Acute head injury status post fall TECHNIQUE: Multiple axial CT images of the head were obtained without contrast. A dose lowering technique was utilized adhering to the principles of ALARA. CT DOSE: 973.39 mGy.cm COMPARISON: MRA of the head 02/26/2019 FINDINGS: No acute intracranial hemorrhage, midline shift, intracranial mass, hydrocephalus, territorial ischemia or abnormal extra-axial collection. Mild involutional changes. The calvarium is intact. The paranasal sinuses, mastoid air cells, and middle ear cavities are clear. IMPRESSION: No acute intracranial abnormality or calvarial fracture. ACT 112: Negative or not required by law. The above report was generated using voice recognition software. It may contain grammatical, syntax or spelling errors. Electronically signed by: Parth Mario M.D. 10/05/2021 8:13 PM Blood Pressure Blood Pressure Findings: Elevated blood pressure Head Trauma GCS Score: 15 MDM Narrative Differential diagnosis: Syncope secondary to cardiac arrhythmia, neurogenic abnormality, electrolyte abnormality, dehydration, metabolic disorder, infectious etiology, intracranial bleed, spine injury, injure abdominal injury, among others were considered This patient is a pleasant 75-year-old male who presents the emergency department with complaints of a fall and syncopal episode prior to arrival. He had a very small superficial laceration noted to the lateral to the left eye. He was neurologically intact. His vital signs were stable. The patient was complaining of some chest discomfort on the left, which is the side that he fell on. As this was a syncopal episode, a work-up was performed. Labs reveal no leukocytosis. Troponin is negative. No significant anemia noted. Electrolytes were appropriate. Extensive imaging was performed. This is consistent with small bilateral pleural effusions. No trauma was noted. The patient is EKG reveals new onset A. fib. Due to this and the syncopal episode, the hospitalist was consulted. It was felt that he likely should be admitted for inpatient management. Attending Attestation: Bela Hernandez MD independently saw and evaluated this patient and agree with history and physical is otherwise documented by the physician executive assistant to president. See their note for full details. Patient had a fall after syncope. Mild sw elling/contusion/abrasion to left amish area but GCS 15 on my exam. Not on AC at this time. CT imaging completed given the fall. Labs and EKG given syncope. Appears new onset AFib on EKG with irregularity irregular pulse but rate controlled at this time. Imaging with mild pulmonary edema but no O2 requirement. Quite hypertensive. Given this will have medicine admit for further work up. Patient and in agreement with plan. Impression & Plan Syncope, New onset a-fib Discharge Plan Visit Data Chief Complaint: Fall Stated Complaint: FALL; LAC ON FACE, HIT HEAD, CHEST DISCOMFORT ED Provider: Cleve Hernandez ED Midlevel Provider: Mervat Westfall Discharge Problem: Syncope, New onset a-fib Patient Disposition: Admitted As Inpatient Discharge Instructions Interventions: ED Discharge Assessment Last Done: 10/05/21 23:10
--- NOTE | 2021-10-05 19:39 | XRay Report ---
XR chest 1V portable HISTORY: 75 years-old Male syncope acute syncope COMPARISON: Chest radiographs 09/11/2021 TECHNIQUE: Portable AP view of the chest FINDINGS: Cardiac silhouette is enlarged. Moderate hemidiaphragmatic elevation. Pulmonary vascular congestion. There are new reticular bilateral interstitial opacities. Mild blunting of the costophrenic angles. N o pneumothorax or large pleural effusion. Degenerative changes of the shoulders and spine. IMPRESSION: Cardiomegaly with bilateral interstitial opacities suggestive of pulmonary edema versus i nterstitial pneumonitis, new from 09/11/2021. ACT 112: Negative or not required by law. The above report was generated using voice recognition software. It may contain grammatical, syntax o r spelling errors. Electronically signed by: Parth Mario M.D. 10/05/2021 7:37 PM
[2021-10-05 19:53] LABS: Basophils # (auto) 0.03 K/uL (0-0.2); Basophils % (auto) 0.4 %; Eosinophils # (auto) 0.11 K/uL (0-0.5); Eosinophils % (auto) 1.6 %; Hematocrit (blood only) 37.3 % (42-52); Hemoglobin 11.7 g/dL (14.0-18.0); Immature Granulocytes # (auto) 0.03 K/uL (0.00-0.02); Immature Granulocytes % (auto) 0.4 %; Lymphocytes # (auto) 0.81 K/uL (1.2-3.4); Lymphocytes % (auto) 12.1 %; Mean Corpuscular Hemoglobin 28.2 pg (25-34); Mean Corpuscular Hgb Conc 31.4 g/dL (32-36); Mean Corpuscular Volume 89.9 fL (80-100); Mean Platelet Volume 8.9 fL (7.4-10.4); Monocytes # (auto) 0.76 K/uL (0.11-0.59); Monocytes % (auto) 11.4 %; Neutrophils # (auto) 4.94 K/uL (1.4-6.5); Neutrophils % (auto) 74.1 %; Platelet Count 209 K/uL (130-400); RDW Coefficient of Variation 15.6 % (11.5-14.5); RDW Standard Deviation 51.6 fL (36.4-46.3); Red Blood Count 4.15 M/uL (4.7-6.1); White Blood Count 6.68 K/uL (4.8-10.8)
[2021-10-05 20:01] LABS: Prothrombin Time 10.5 Seconds (9.0-12.0)
--- NOTE | 2021-10-05 20:14 | CT Scan Report ---
CT head/brain wo con CLINICAL HISTORY: 75 years-old Male with syncope. Acute head injury status post fall TECHNIQUE: Multiple axial CT images of the head were obtained without contrast. A dose lowering tech nique was utilized adhering to the principles of ALARA. CT DOSE: 973.39 mGy.cm COMPARISON: MRA of the head 02/26/2019 FINDINGS: No acute intracranial hemorrhage, midline shift, intracranial mass, hydrocephalus, territorial ischem ia or abnormal extra-axial collection. Mild involutional changes. The calvarium is intact. The paranasal sinuses, mastoid air cells, and middle ear cavities are clear . IMPRESSION: No acute intracranial abnormality or calvarial fracture. ACT 112: Negative or not required by law. The above report was generated using voice recognition software. It may contain grammatical, syntax o r spelling errors. Electronically signed by: Parth Mario M.D. 10/05/2021 8:13 PM
--- NOTE | 2021-10-05 20:19 | CT Scan Report ---
CT cervical spine wo con CLINICAL HISTORY: 75 years-old Male with fall. Acute head and neck injury status post fall COMPARISON: Head CT of same day TECHNIQUE: Multiple axial CT images of the cervical spine were obtained without contrast. A dose low ering technique was utilized adhering to the principles of ALARA. FINDINGS: Multilevel intervertebral disc space narrowing, moderate at C6-C7. No acute fracture or sub luxation. Multilevel neural foraminal narrowing. No prevertebral edema. Multinodular thyroid. Calcifi ed plaque of the left carotid artery. Prior right-sided carotid endarterectomy. Intralobular septal t hickening of the lungs. Moderate multilevel facet arthrosis. Mild to moderate spondylitic spurring wi th small posterior disc osteophyte complex formations. IMPRESSION: 1. No acute fracture or subluxation. 2. Intralobular septal thickening of the lung apices suggestive of pulmonary edema 3. Prior right-sided carotid endarterectomy. ACT 112: Negative or not required by law. The above report was generated using voice recognition software. It may contain grammatical, syntax o r spelling errors. Electronically signed by: Parth Mario M.D. 10/05/2021 8:17 PM
[2021-10-05 20:24] LABS: Alanine Aminotransferase 34 U/L (12-78); Albumin Level 3.4 gm/dl (3.4-5.0); Aspartate Aminotransferase 18 U/L (15-37); BUN Creatinine Ratio 14.9 (10-20); Blood Urea Nitrogen 19 mg/dl (7-18); Calcium 8.3 mg/dl (8.5-10.1); Carbon Dioxide 24 mmol/L (21-32); Chloride 107 mmol/L (98-107); Est GFR (African American) 62.7 ml/min; Est GFR (Non-African American) 54.1 ml/min; Glucose 108 mg/dl (70-99); Magnesium 2.1 mg/dl (1.8-2.4); Potassium 4.6 mmol/L (3.5-5.1); Sodium 138 mmol/L (136-145)
[2021-10-05 20:29] LABS: Albumin Globulin Ratio 0.8 (0.9-2); Alkaline Phosphatase 113 U/L (45-117); Bilirubin,Total 0.4 mg/dl (0.2-1); Globulin 4.2 gm/dl (2.5-4.0); Phosphorus 3.3 mg/dl (2.5-4.9); Total Protein 7.6 gm/dl (6.4-8.2); Troponin I < 0.015 ng/ml (0-0.045)
[2021-10-05 20:36] LABS: Appearance Urine Clear (Clear); Bilirubin Urine Negative (Negative); Blood Urine Negative (Negative); Color Urine Yellow; Glucose Urine UA Negative (Negative); Ketones Urine Negative (Negative); Leukocyte Esterase Urine Negative (Negative); Nitrite Urine Negative (Negative); Protein Urine Negative (Negative); Urobilinogen Urine Negative (Negative)
[2021-10-05] MEDS ORDERED: OPTIRAY 320 100ml IV ONE (20:38)
--- NOTE | 2021-10-05 21:08 | CT Scan Report ---
CT thoracic spine w con, CT lumbar spine w con HISTORY: 75 years-old Male fall acute back pain status post trauma COMPARISON: CT chest, abdomen and pelvis of same day TECHNIQUE: Multiple axial CT images of the thoracic and lumbar spine were obtained without the use of IV contrast. A dose lowering technique was used consistent with the principals of PACHECO. FINDINGS: THORACIC: Mild multilevel intervertebral disc space narrowing with mild to moderate anterior endplate bridging osteophytosis and mostly mild facet arthrosis. No acute fracture, subluxation or endplate erosion. Ev aluation of the central canal and neuroforamina is better assessed by MRI technique. Trace pleural effusions with pulmonary edema and mild bibasilar atelectasis. Mild nonspecific mid to distal esophageal wall thickening. LUMBAR: Transitional lumbosacral anatomy 4 mm anterolisthesis L4 on L5 is likely degenerative with severe L4- L5 and L5-S1 facet arthrosis. Minimal multilevel intervertebral disc space narrowing with mild spondy litic spurring and small posterior disc osteophyte complex formations. Mild lumbar levoscoliosis. No acute fracture or subluxation. Evaluation of the central canal and neuroforamina is better assessed b y MRI. There is at least moderate central canal stenosis at L3-L4. IMPRESSION: 1. No acute fracture or subluxation. 2. Degenerative changes as above. ACT 112: Negative or not required by law. The above report was generated using voice recognition software. It may contain grammatical, syntax o r spelling errors. Electronically signed by: Parth Mario M.D. 10/05/2021 9:07 PM
--- NOTE | 2021-10-05 21:26 | CT Scan Report ---
CHEST CT WITH CONTRAST; CT ABDOMEN AND PELVIS WITH IV CONTRAST ONLY HISTORY: Acute left-sided chest pain status post trauma L chest pain fall TECHNIQUE: Multiaxial CT images of the chest, abdomen and pelvis were performed following the IV admi nistration of 98 cc of Optiray. A dose lowering technique was utilized adhering to the principles o f ALARA. COMPARISON: CT thoracic and lumbar spine studies of same day FINDINGS: CT CHEST: Multinodular thyroid with hypodense 1.4 cm right thyroid nodule. Nonspecific mediastinal and hilar ad enopathy with right hilar lymph nodes measuring up to 1.2 cm. The heart is upper limits of normal in size. Moderate coronary artery calcifications. No thoracic aortic aneurysm or dissection. Unremarkabl e pulmonary artery moderate hemidiaphragmatic elevation. Trace pleural effusions. No pneumothorax. Intralobular septal thickening with bronchial wall thickeni ng. Mild dependent subsegmental bibasilar atelectasis. There are no suspicious pulmonary nodules or m asses identified. The central airways are patent. No acute fracture identified. Spondylitic spurring of the thoracic spine with mild intervertebral disc space narrowing and facet arthrosis. CT ABDOMEN AND PELVIS: No pneumatosis or pneumoperitoneum. Unremarkable spleen, pancreas, and adrenal glands. Cholelithiasis . No biliary ductal dilation. Unremarkable liver. Patent portal vein. Mild nonspecific bilateral albert nephric stranding. The left kidney is atrophic measuring up to 7.4 cm in length. Prostatectomy. Unrem arkable urinary bladder. Prior left-sided inguinal hernia repair. Atherosclerosis of the aorta. Mild nonspecific distal esophageal wall thickening. Duodenal diverticulosis. Mild fecal retention. No ruchi l obstruction or bowel wall thickening. Appendectomy. Unremarkable soft tissues. No acute fracture id entified. Degenerative changes of the spine, pelvis and hips. Lumbar levoscoliosis. IMPRESSION: 1. Cardiomegaly with mild pulmonary edema and trace pleural effusions. 2. No acute intra-abdominal or intrapelvic abnormality. 3. Moderately atrophic left kidney. 4. No acute fracture identified. 5. Additional findings as above. ACT 112: Negative or not required by law. Electronically signed by: Parth Mario M.D. 10/05/2021 9:24 PM
[2021-10-05] MEDS ORDERED: ENALAPRIL MALEATE 5 MG TAB PO STA (21:47)
[2021-10-05] MEDS ORDERED: carvediloL 12.5 MG TAB PO ONE (21:47)
[2021-10-05 22:01] LABS: Thyroid Stimulating Hormone 3.82 uIu/ml (0.300-4.500)
--- NOTE | 2021-10-05 22:54 | History & Physical Report ---
Date of Service October 05, 2021 Assessment & Plan (1) New onset a-fib: Plan: 75 yo M with hx CKD, HTN, HLD, UC admitted to hospital for workup of syncope and found to have new onset Afib. Syncope - CT head negative for acute changes - electrolytes WNL - EKG showing new onset afib, see below - BP hypertensive, possibly orthostatic with weakness while standing. orthostatic vitals ordered. - Anemic to 11.7 (stable), MCV 89.9. Iron/ferritin/transferrin/TIBC ordered for evaluation of anemia. Afib - new change compared to previous EKGs in [facility] system. RRR during appt with Dr. Vega on 09/28/21 - possibly paroxysmal Afib. telemetry monitoring - started on eliquis - TTE in AM. CT notable for mild cardiomegaly and pulmonary edema -- possible new CHF? - likely will require titration of carvedilol for rate control (currently on 12.5 mg HS) - follows with Dr. Huber for cardiology - K >4, Mg >2 HTN/CAD - continue carvedilol, enalapril, hydralazine - continue ASA, statin UC -continue sulfasalazine CKD - GFR 54, at baseline. Incidental Thyroid Nodule - incidental finding on CT chest - Multinodular thyroid with hypodense 1.4 cm right thyroid nodule. - TSH 3.820, follow up outpatient with ultrasound DVT ppx: eliquis FEN/GI: heart healthy Bowel regimen: prn miralax Code Status: DNR/DNI Dispo: med/tele. covid negative. (2) CKD (chronic kidney disease): (3) Hypertension: (4) Hypercholesterolemia: (5) Ulcerative colitis: History of Present Illness Primary Care Provider: Zackary Decker MD 75 yo M with a PMH Ulcerative Colitis, HTN, HLD, CAD who presents to the ER after syncope and fall at home. He states he was standing at the mailbox when he felt suddenly weak, bent forward to try and steady himself, and then fell forward and hit his head on the ground and passed out. He denies feeling dizzy prior to hitting his head. He denies any chest pain associated with the event or any palpitations. He has felt generally weak and unwell for the past few weeks and has been evaluated at [facility] twice (acute viral URI, CXR w/o pna/effusion + emphysematous changes, recommended seeing pulm for PFTs). EKG in ER significant for atrial fibrillation. No hx afib. CXR showing cardiomegaly with some pulmonary edema. Patient did not take his nighttime medications at home and was given his dose of carvedilol and enalapril in the ER. Allergies Allergy/AdvReac Type Severity Reaction Status Date / Time tamsulosin [From Flomax] Allergy Intermediate LETHARGY Verified 10/05/21 10:35 Home Medications Medication Instructions Recorded Confirmed Type aspirin 81 mg tablet,delayed 81 mg PO QPM 08/23/19 10/05/21 History release (Adult Low Dose Aspirin) psyllium husk 3.4 gram/5.4 gram 1 tbsp PO QAM 12/12/19 10/05/21 History oral powder atorvastatin 80 mg tablet 80 mg PO QAM 09/13/20 10/05/21 History hydralazine 25 mg tablet 25 mg PO QAM #90 tab 05/22/21 10/05/21 Rx carvedilol 12.5 mg tablet 12.5 mg PO HS #180 tab 09/25/21 10/05/21 Rx enalapril maleate 2.5 mg tablet 2.5 mg PO QPM #90 tab 09/25/21 10/05/21 Rx sulfasalazine 500 mg tablet 1,000 mg PO TID #540 tab 10/02/21 10/05/21 Rx Past Med/Surg History Medical History (Updated 10/05/21 @ 23:57 by Whitley Cintron MD) Acute appendicitis Acute appendicitis with localized peritonitis CKD (chronic kidney disease) creatinine baseline 1.5-1.6 per chart review Hearing deficit History of prostate cancer Hx of skin cancer, basal cell nose s/p excision Hx of ulcerative colitis Hyperlipidemia Hypertension Left renal artery stenosis Surgical History History of cataract surgery RT/LEFT History of colonoscopy History of right-sided carotid endarterectomy 05/2019 @ [facility] by Dr. Merino History of tonsillectomy Hx of hernia repair Left inguinal Hx of prostatectomy Hx of transurethral resection of prostate Family History Other No known health problems Social History Smoking Status: Former smoker Cigarettes Per Day: ~2ppd x 25 years; Second Hand Exposure: No; Do You Dip or Chew Tobacco: No; Hx Alcohol Use: No Hx Substance Use: No Preferred Language: [place]al[place] Communication Ability: Effective Visual Impairment: No Limitations Endless [employer] Vehicle Mechanic Required: No Beliefs That Will Affect Care: None Current Living Situation: Spouse Other Information That Helps Us Care for You: No Feels Safe at Home: Yes Safety Concerns: Feels Safe At This Time Assistive Devices: Hearing Aid - Bilateral Review of Systems Constitutional: + fatigue and + weakness; no fever, no chills and no body ac hes Respiratory: no cough and no dyspnea Cardiovascular: no chest pain, no dyspnea and no edema Gastrointestinal: no abdominal pain, no nausea, no vomiting, no constipation and no diarrhea/loose stools Neurologic: no tingling, no numbness, no dizziness and no confusion Physical Exam Physical Exam: Constitutional: in no apparent distress, laying comfortably in bed. Eyes: EOMI, pupils equal and reactive bilaterally, no scleral icterus Cardiac: tachycardic, irregularly irregular, no murmurs, gallops or rubs. Normal S1, S2 Pulm: CTA BL, no wheezes, rhonchi, crackles or rubs, moving air well throughout both lungs Abd: soft, nontender, nondistended, normal bowel sounds, no rebound or guarding Extremities: 2+ peripheral pulses, no edema Neuro: no focal deficits, moving all 4 limbs, A&Ox3 Skin: small treated laceration on right upper forehead, bruising on arms Results & Data Results & Data ([facility]) Vital Signs (Past 12 Hours) Vital Signs Temp Pulse Resp BP Pulse Ox 10/05/21 18:38 36.4 C L 103 H 18 180/78 H 97 Laboratory Results Laboratory Results WBC 6.68 K/uL (4.8-10.8) 10/05/21 19:39 RBC 4.15 M/uL (4.7-6.1) L 10/05/21 19:39 Hgb 11.7 g/dL (14.0-18.0) L 10/05/21 19:39 Hct 37.3 % (42-52) L 10/05/21 19:39 MCV 89.9 fL (80-100) 10/05/21 19:39 MCH 28.2 pg (25-34) 10/05/21 19:39 MCHC 31.4 g/dL (32-36) L 10/05/21 19:39 RDW Std Deviation 51.6 fL (36.4-46.3) H 10/05/21 19:39 RDW Coeff of Gini 15.6 % (11.5-14.5) H 10/05/21 19:39 Plt Count 209 K/uL (130-400) 10/05/21 19:39 MPV 8.9 fL (7.4-10.4) 10/05/21 19:39 Immature Gran % (Auto) 0.4 % 10/05/21 19:39 Neut % (Auto) 74.1 % 10/05/21 19:39 Lymph % (Auto) 12.1 % 10/05/21 19:39 [place] % (Auto) 11.4 % 10/05/21 19:39 Eos % (Auto) 1.6 % 10/05/21 19:39 Baso % (Auto) 0.4 % 10/05/21 19:39 Neut # (Auto) 4.94 K/uL (1.4-6.5) 10/05/21 19:39 Lymph # (Auto) 0.81 K/uL (1.2-3.4) L 10/05/21 19:39 [place] # (Auto) 0.76 K/uL (0.11-0.59) H 10/05/21 19:39 Eos # (Auto) 0.11 K/uL (0-0.5) 10/05/21 19:39 Baso # (Auto) 0.03 K/uL (0-0.2) 10/05/21 19:39 Immature Gran # (Auto) 0.03 K/uL (0.00-0.02) H 10/05/21 19:39 PT 10.5 Seconds (9.0-12.0) 10/05/21 19:39 INR 1.0 (0.9-1.1) 10/05/21 19:39 Sodium 138 mmol/L (136-145) 10/05/21 19:39 Potassium 4.6 mmol/L (3.5-5.1) 10/05/21 19:39 Chloride 107 mmol/L (98-107) 10/05/21 19:39 Carbon Dioxide 24 mmol/L (21-32) 10/05/21 19:39 Anion Gap 7.0 (3-11) 10/05/21 19:39 BUN 19 mg/dl (7-18) H 10/05/21 19:39 Creatinine 1.27 mg/dl (0.6-1.4) 10/05/21 19:39 Est Cr Clr Drug Dosing 53.0 ml/min 10/05/21 19:39 Est GFR ( Amer) 62.7 ml/min 10/05/21 19:39 Est GFR (Non-Af Amer) 54.1 ml/min 10/05/21 19:39 BUN/Creatinine Ratio 14.9 (10-20) 10/05/21 19:39 Glucose 108 mg/dl (70-99) H 10/05/21 19:39 Calcium 8.3 mg/dl (8.5-10.1) L 10/05/21 19:39 Phosphorus 3.3 mg/dl (2.5-4.9) 10/05/21 19:39 Magnesium 2.1 mg/dl (1.8-2.4) 10/05/21 19:39 Total Bilirubin 0.4 mg/dl (0.2-1) 10/05/21 19:39 AST 18 U/L (15-37) 10/05/21 19:39 ALT 34 U/L (12-78) 10/05/21 19:39 Alkaline Phosphatase 113 U/L (45-117) 10/05/21 19:39 Troponin I < 0.015 ng/ml (0-0.045) 10/05/21 19:39 Total Protein 7.6 gm/dl (6.4-8.2) 10/05/21 19:39 Albumin 3.4 gm/dl (3.4-5.0) 10/05/21 19:39 Globulin 4.2 gm/dl (2.5-4.0) H 10/05/21 19:39 Albumin/Globulin Ratio 0.8 (0.9-2) L 10/05/21 19:39 TSH 3.820 uIu/ml (0.300-4.500) 10/05/21 19:39 Urine Color Yellow 10/05/21 Unknown Urine Appearance Clear (Clear) 10/05/21 Unknown Urine pH 7.0 (4.5-7.5) 10/05/21 Unknown Ur Specific [place] 1.010 (1.000-1.030) 10/05/21 Unknown Urine Protein Negative (Negative) 10/05/21 Unknown Urine Glucose (UA) Negative (Negative) 10/05/21 Unknown Urine Ketones Negative (Negative) 10/05/21 Unknown Urine Blood Negative (Negative) 10/05/21 Unknown Urine Nitrite Negative (Negative) 10/05/21 Unknown Urine Bilirubin Negative (Negative) 10/05/21 Unknown Urine Urobilinogen Negative (Negative) 10/05/21 Unknown Ur Leukocyte Esterase Negative (Negative) 10/05/21 Unknown COVID-19 Eval Order Covid19 at [facility] 10/05/21 21:50 SARS-CoV-2 (PCR) NEGATIVE (Negative) 10/05/21 21:50 Impressions Abdomen/Pelvis CT 10/05/21 19:[address] WITH CONTRAST; CT ABDOMEN AND PELVIS WITH IV CONTRAST ONLY HISTORY: Acute left-sided chest pain status post trauma L chest pain fall TECHNIQUE: Multiaxial CT images of the chest, abdomen and pelvis were performed following the IV administration of 98 cc of Optiray. A dose lowering technique was utilized adhering to the principles of ALARA. COMPARISON: CT thoracic and lumbar spine studies of same day FINDINGS: CT CHEST: Multinodular thyroid with hypodense 1.4 cm right thyroid nodule. Nonspecific mediastinal and hilar adenopathy with right hilar lymph nodes measuring up to 1.2 cm. The heart is upper limits of normal in size. Moderate coronary artery calcifications. No thoracic aortic aneurysm or dissection. Unremarkable pulmonary artery moderate hemidiaphragmatic elevation. Trace pleural effusions. No pneumothorax. Intralobular septal thickening with bronchial wall thickening. Mild dependent subsegmental bibasilar atelectasis. There are no suspicious pulmonary nodules or masses identified. The central airways are patent. No acute fracture identified. Spondylitic spurring of the thoracic spine with mild intervertebral disc space narrowing and facet arthrosis. CT ABDOMEN AND PELVIS: No pneumatosis or pneumoperitoneum. Unremarkable spleen, pancreas, and adrenal glands. Cholelithiasis. No biliary ductal dilation. Unremarkable liver. Patent portal vein. Mild nonspecific bilateral perinephric stranding. The left kidney is atrophic measuring up to 7.4 cm in length. Prostatectomy. Unremarkable urinary bladder. Prior left-sided inguinal hernia repair. Atherosclerosis of the aorta. Mild nonspecific distal esophageal wall thickening. Duodenal diverticulosis. Mild fecal retention. No bowel obstruction or bowel wall thickening. Appendectomy. Unremarkable soft tissues. No acute fracture identified. Degenerative changes of the spine, pelvis and hips. Lumbar levoscoliosis. IMPRESSION: 1. Cardiomegaly with mild pulmonary edema and trace pleural effusions. 2. No acute intra-abdominal or intrapelvic abnormality. 3. Moderately atrophic left kidney. 4. No acute fracture identified. 5. Additional findings as above. ACT 112: Negative or not required by law. Electronically signed by: Parth Mario M.D. 10/05/2021 9:[address] 10/05/21 19:12 CT cervical spine wo con CLINICAL HISTORY: 75 years-old Male with fall. Acute head and neck injury status post fall COMPARISON: Head CT of same day TECHNIQUE: Multiple axial CT images of the cervical spine were obtained without contrast. A dose lowering technique was utilized adhering to the principles of ALARA. FINDINGS: Multilevel intervertebral disc space narrowing, moderate at C6-C7. No acute fracture or subluxation. Multilevel neural foraminal narrowing. No prevertebral edema. Multinodular thyroid. Calcified plaque of the left carotid artery. Prior right-sided carotid endarterectomy. Intralobular septal thickening of the lungs. Moderate multilevel facet arthrosis. Mild to moderate spondylitic spurring with small posterior disc osteophyte complex formations. IMPRESSION: 1. No acute fracture or subluxation. 2. Intralobular septal thickening of the lung apices suggestive of pulmonary edema 3. Prior right-sided carotid endarterectomy. ACT 112: Negative or not required by law. The above report was generated using voice recognition software. It may contain grammatical, syntax or spelling errors. Electronically signed by: Parth Mario M.D. 10/05/2021 8:[address] 10/05/21 19:[address] WITH CONTRAST; CT ABDOMEN AND PELVIS WITH IV CONTRAST ONLY HISTORY: Acute left-sided chest pain status post trauma L chest pain fall TECHNIQUE: Multiaxial CT images of the chest, abdomen and pelvis were performed following the IV administration of 98 cc of Optiray. A dose lowering technique was utilized adhering to the principles of ALARA. COMPARISON: CT thoracic and lumbar spine studies of same day FINDINGS: CT CHEST: Multinodular thyroid with hypodense 1.4 cm right thyroid nodule. Nonspecific mediastinal and hilar adenopathy with right hilar lymph nodes measuring up to 1.2 cm. The heart is upper limits of normal in size. Moderate coronary artery calcifications. No thoracic aortic aneurysm or dissection. Unremarkable pulmonary artery moderate hemidiaphragmatic elevation. Trace pleural effusions. No pneumothorax. Intralobular septal thickening with bronchial wall thickening. Mild dependent subsegmental bibasilar atelectasis. There are no suspicious pulmonary nodules or masses identified. The central airways are patent. No acute fracture identified. Spondylitic spurring of the thoracic spine with mild intervertebral disc space narrowing and facet arthrosis. CT ABDOMEN AND PELVIS: No pneumatosis or pneumoperitoneum. Unremarkable spleen, pancreas, and adrenal glands. Cholelithiasis. No biliary ductal dilation. Unremarkable liver. Patent portal vein. Mild nonspecific bilateral perinephric stranding. The left kidney is atrophic measuring up to 7.4 cm in length. Prostatectomy. Unremarkable u rinary bladder. Prior left-sided inguinal hernia repair. Atherosclerosis of the aorta. Mild nonspecific distal esophageal wall thickening. Duodenal diverticulosis. Mild fecal retention. No bowel obstruction or bowel wall thickening. Appendectomy. Unremarkable soft tissues. No acute fracture identified. Degenerative changes of the spine, pelvis and hips. Lumbar levoscoliosis. IMPRESSION: 1. Cardiomegaly with mild pulmonary edema and trace pleural effusions. 2. No acute intra-abdominal or intrapelvic abnormality. 3. Moderately atrophic left kidney. 4. No acute fracture identified. 5. Additional findings as above. ACT 112: Negative or not required by law. Electronically signed by: Parth Mario M.D. 10/05/2021 9:24 PM Chest X-Ray 10/05/21 19:12 XR chest 1V portable HISTORY: 75 years-old Male syncope acute syncope COMPARISON: Chest radiographs 09/11/2021 TECHNIQUE: Portable AP view of the chest FINDINGS: Cardiac silhouette is enlarged. Moderate hemidiaphragmatic elevation. Pulmonary vascular congestion. There are new reticular bilateral interstitial opacities. Mild blunting of the costophrenic angles. No pneumothorax or large pleural effusion. Degenerative changes of the shoulders and spine. IMPRESSION: Cardiomegaly with bilateral interstitial opacities suggestive of pulmonary edema versus interstitial pneumonitis, new from 09/11/2021. ACT 112: Negative or not required by law. The above report was generated using voice recognition software. It may contain grammatical, syntax or spelling errors. Electronically signed by: Parth Mario M.D. 10/05/2021 7:[address] 10/05/21 19:12 CT thoracic spine w con, CT lumbar spine w con HISTORY: 75 years-old Male fall acute back pain status post trauma COMPARISON: CT chest, abdomen and pelvis of same day TECHNIQUE: Multiple axial CT images of the thoracic and lumbar spine were obtai oracio without the use of IV contrast. A dose lowering technique was used consistent with the principals of PACHECO. FINDINGS: THORACIC: Mild multilevel intervertebral disc space narrowing with mild to moderate anterior endplate bridging osteophytosis and mostly mild facet arthrosis. No acute fracture, subluxation or endplate erosion. Evaluation of the central canal and neuroforamina is better assessed by MRI technique. Trace pleural effusions with pulmonary edema and mild bibasilar atelectasis. Mild nonspecific mid to distal esophageal wall thickening. LUMBAR: Transitional lumbosacral anatomy 4 mm anterolisthesis L4 on L5 is likely degenerative with severe L4-L5 and L5-S1 facet arthrosis. Minimal multilevel intervertebral disc space narrowing with mild spondylitic spurring and small pos terior disc osteophyte complex formations. Mild lumbar levoscoliosis. No acute fracture or subluxation. Evaluation of the central canal and neuroforamina is better assessed by MRI. There is at least moderate central canal stenosis at L3- L4. IMPRESSION: 1. No acute fracture or subluxation. 2. Degenerative changes as above. ACT 112: Negative or not required by law. The above report was generated using voice recognition software. It may contain grammatical, syntax or spelling errors. Electronically signed by: Parth Mario M.D. 10/05/2021 9:[address] 10/05/21 19:12 CT thoracic spine w con, CT lumbar spine w con HISTORY: 75 years-old Male fall acute back pain status post trauma COMPARISON: CT chest, abdomen and pelvis of same day TECHNIQUE: Multiple axial CT images of the thoracic and lumbar spine were obtained without the use of IV contrast. A dose lowering technique was used consistent with the principals of ALARA. FINDINGS: THORACIC: Mild multilevel intervertebral disc space narrowing with mild to moderate anterior endplate bridging osteophytosis and mostly mild facet arthrosis. No acute fracture, subluxation or endplate erosion. Evaluation of the central canal and neuroforamina is better assessed by MRI technique. Trace pleural effusions with pulmonary edema and mild bibasilar atelectasis. Mild nonspecific mid to distal esophageal wall thickening. LUMBAR: Transitional lumbosacral anatomy 4 mm anterolisthesis L4 on L5 is likely degenerative with severe L4-L5 and L5-S1 facet arthrosis. Minimal multilevel intervertebral disc space narrowing with mild spondylitic spurring and small posterior disc osteophyte complex formations. Mild lumbar levoscoliosis. No acute fracture or subluxation. Evaluation of the central canal and neuroforamina is better assessed by MRI. There is at least moderate central canal stenosis at L3-L4. IMPRESSION: 1. No acute fracture or subluxation. 2. Degenerative changes as above. ACT 112: Negative or not required by law. The above report was generated using voice recognition software. It may contain grammatical, syntax or spelling errors. Electronically signed by: Parth Mario M.D. 10/05/2021 9:[address] 10/05/21 19:56 CT head/brain wo con CLINICAL HISTORY: 75 years-old Male with syncope. Acute head injury status post fall TECHNIQUE: Multiple axial CT images of the head were obtained without contrast. A dose lowering technique was utilized adhering to the principles of ALARA. CT DOSE: 973.39 mGy.cm COMPARISON: MRA of the head 02/26/2019 FINDINGS: No acute intracranial hemorrhage, midline shift, intracranial mass, hydrocephalus, territorial ischemia or abnormal extra-axial collection. Mild involutional changes. The calvarium is intact. The paranasal sinuses, mastoid air cells, and middle ear cavities are clear. IMPRESSION: No acute intracranial abnormality or calvarial fracture. ACT 112: Negative or not required by law. The above report was generated using voice recognition software. It may contain grammatical, syntax or spelling errors. Electronically signed by: Parth Mario M.D. 10/05/2021 8:13 PM Resident Activity Tracking Resident Involvement: Resident Care Provided Care Provided: [facility]
[2021-10-06] MEDS ORDERED: ONDANSETRON INJ 2 MG/ML 2 ML VIAL IV PRN (00:13)
[2021-10-06] MEDS ORDERED: NITROGLYCERIN SL 0.4 MG/TAB TAB SL PRN (00:13)
[2021-10-06] MEDS ORDERED: ACETAMINOPHEN 325 MG TAB PO PRN (00:13)
[2021-10-06] MEDS ORDERED: POLYETHYLENE (MIRALAX) 17 GM PACK PO PRN (00:13)
--- NOTE | 2021-10-06 03:28 | Billing Data ---
Date of Service October 05, 2021 Coding Level of Care Code 76067 Initial Inpt Care Lvl 3
[2021-10-06 06:35] LABS: Basophils # (auto) 0.02 K/uL (0-0.2); Basophils % (auto) 0.3 %; Eosinophils # (auto) 0.06 K/uL (0-0.5); Eosinophils % (auto) 0.8 %; Hematocrit (blood only) 33.7 % (42-52); Hemoglobin 10.7 g/dL (14.0-18.0); Immature Granulocytes # (auto) 0.01 K/uL (0.00-0.02); Immature Granulocytes % (auto) 0.1 %; Lymphocytes % (auto) 11.4 %; Mean Corpuscular Hemoglobin 28.1 pg (25-34); Mean Corpuscular Hgb Conc 31.8 g/dL (32-36); Mean Corpuscular Volume 88.5 fL (80-100); Mean Platelet Volume 8.7 fL (7.4-10.4); Monocytes # (auto) 0.85 K/uL (0.11-0.59); Monocytes % (auto) 10.8 %; Neutrophils # (auto) 6.04 K/uL (1.4-6.5); Neutrophils % (auto) 76.6 %; Platelet Count 203 K/uL (130-400); RDW Coefficient of Variation 15.6 % (11.5-14.5); RDW Standard Deviation 50.4 fL (36.4-46.3); Red Blood Count 3.81 M/uL (4.7-6.1); White Blood Count 7.88 K/uL (4.8-10.8)
[2021-10-06 07:13] LABS: BUN Creatinine Ratio 13.8 (10-20); Calcium 8.5 mg/dl (8.5-10.1); Creatinine Clr Calc Pharmacy 53.8 ml/min; Est GFR (Non-African American) 55.2 ml/min; Magnesium 2.1 mg/dl (1.8-2.4); Potassium 4.1 mmol/L (3.5-5.1)
[2021-10-06 07:22] LABS: Ferritin 47.5 ng/ml (8-388)
--- NOTE | 2021-10-06 07:50 | Electrocardiogram Report ---
Test Reason : Blood Pressure : / mmHG Vent. Rate : 078 BPM Atrial Rate : 065 BPM P-R Int : 000 ms QRS Dur : 080 ms QT Int : 380 ms P-R-T Axes : 000 037 034 degrees QTc Int : 433 ms Atrial fibrillation Low voltage QRS Abnormal ECG When compared with ECG of 13-SEP-2020 00:21, Atrial fibrillation has replaced Sinus rhythm HR has increased by 13 bpm Confirmed by Rishabh Majano ([id number]) on 10/06/2021 7:49:55 AM Referred By: REFERRED SELF Confirmed By:Rishabh Majano
--- NOTE | 2021-10-06 07:56 | Hospitalist Progress Note ---
Date of Service October 06, 2021 Assessment & Plan (1) New onset a-fib: Plan: Mr. Arnold is a 75 yo male with hx CKD, HTN, HLD, ulcerative colitis, renal artery stenosis, and right carotid endarterectomy admitted to hospital for workup of syncope and found to have new onset Afib. Syncope - likely sec to 6 sec sinus pause. Noted on Tele. Had another event of 4 sec. - CT head negative for acute changes - CT chest: No PE - electrolytes WNL - EKG showing new onset afib RC. - BP hypertensive, orthostatics negative - TTE: EF 65-70%, left ventricular wall motion normal, moderate LVH - Cardio consulted - plan for PPM in am. - On coreg as home med. follow. Lyme Positive Serology - lyme tested to r/o lyme carditis - IGG positive, IGM unequivocal, WB pending - started on IV Rocephin 2mg q24h New onset RC Afib - K >4, Mg >2 - TTE: EF 65-70%, left ventricular wall motion normal, moderate LVH - Eliquis started. holding for pacemaker procedure in am. - Rate controlled with Coreg, cont. Pulmonary Edema - sec to acute valvular systolic heart failure. - found on CXR and CT chest, - elevated BNP - 2400 - Echo with normal EF. Moderate MR. Rt Vent pressure elevated. - lasix 20mg x1 HTN/CAD - continue carvedilol, enalapril, hydralazine - continue ASA, statin Ulcerative Colitis -continue sulfasalazine CKD - 3 - GFR 54, at baseline. Incidental Thyroid Nodule - incidental finding on CT chest - Multinodular thyroid with hypodense 1.4 cm right thyroid nodule. - TSH WNL, follow up outpatient with ultrasound DVT ppx: Eliquis FEN/GI: heart healthy Code Status: DNR/DNI Dispo: med/tele. Covid negative. (2) CKD (chronic kidney disease): (3) Hypertension: (4) Hypercholesterolemia: (5) Ulcerative colitis: Admission and Anticipated Discharge Date Admission Date: October 05, 2021 Supervising Physician Co-Signing Physician Notes Resident Physician Supervision Note: I independently interviewed and examined the patient and verified the ha history and physical, reviewed labs and image studies and agree with resident Dr. Cintron findings and care plan. Subjective Had a 6 second pause on tele overnight while in afib without symptoms. Laying in bed comfortably this morning. No acute complaints. Says his has afib as well so is aware of the condition. Review of Systems Review of Systems: All systems reviewed & are unremarkable except as noted in HPI & below Constitutional: + fatigue and + weakness; no fever, no chills and no body aches Respiratory: no cough and no dyspnea Cardiovascular: no chest pain, no dyspnea and no edema Gastrointestinal: no abdominal pain, no nausea, no vomiting, no constipation and no diarrhea/loose stools Neurologic: no tingling, no numbness, no dizziness and no confusion Physical Exam Physical Exam: Constitutional: in no apparent distress, laying comfortably in bed. Eyes: EOMI, pupils equal and reactive bilaterally, no scleral icterus Cardiac: regular rate, irregularly irregular, no murmurs, gallops or rubs. Normal S1, S2 Pulm: CTA BL, no wheezes, rhonchi, crackles or rubs, moving air well throughout both lungs Abd: soft, nontender, nondistended, normal bowel sounds, no rebound or guarding Extremities: 2+ peripheral pulses, no edema Neuro: no focal deficits, moving all 4 limbs, A&Ox3 Skin: small treated laceration on left forehead near eye, bruising on arms Results & Data Results & Data ([facility]) Vital Signs (Past 12 Hours) Vital Signs Temp Pulse Pulse Resp BP BP Pulse Ox 10/06/21 07:51 36.8 C 70 20 170/86 H 94 10/05/21 23:00 73 19 10/05/21 22:30 77 23 170/98 H 10/05/21 22:00 84 25 H 10/05/21 21:41 82 16 Resident Activity Tracking Resident Involvement: Resident Care Provided Care Provided: Adult Hospital Medicine
[2021-10-06] MEDS: hydrALAZINE HCL 25 MG TAB PO SCH (08:17)
[2021-10-06] MEDS: sulfaSALAzine 500 MG TABLET PO SCH ×3 (08:17→20:20)
[2021-10-06] MEDS: ATORVASTATIN 40 MG TAB PO SCH (08:17)
--- NOTE | 2021-10-06 08:24 | Electrocardiogram Report ---
Test Reason : Blood Pressure : / mmHG Vent. Rate : 074 BPM Atrial Rate : 073 BPM P-R Int : 000 ms QRS Dur : 076 ms QT Int : 398 ms P-R-T Axes : 000 052 057 degrees QTc Int : 441 ms Atrial fibrillation Low voltage QRS Abnormal ECG When compared with ECG of 05-OCT-2021 19:44, No significant change Confirmed by Rishabh Majano ([id number]) on 10/06/2021 8:24:04 AM Referred By: REFERRED SELF Confirmed By:Rishabh Majano
--- NOTE | 2021-10-06 08:57 | Cardiology Consultation ---
Date of Consultation October 06, 2021 Assessment & Plan (1) New onset a-fib: Impression: 1. New onset atrial fibrillation, rate controlled 2. Syncope with subsequent finding of 6 second pause on the monitor. 3. Hypertension 4. Undefined CHF - pulmonary edema on CXR and elevated bnp 5. Hyperlipidemia. 4. Ulcerative colitis. 5. Prostate cancer. Given the new onset atrial fibrillation with significant pause and syncope, I have asked Dr. Garcia see Mr. Arnold for evaluation for pacemaker. I discussed risks and benefits with Mr. Arnold and he is agreeable to proceed. He is appropriately on apixaban started last evening. He only takes Coreg at night currently. He did have pulmonary edema on CXR, elevated bnp and sob. Will give furosemide 20 mg IV x1. It may be that this is exacerbated by the atrial fibrillation with bradycardia/pauses. Echo can be performed after discharge. Blood pressures are somewhat elevated. He is currently on enalapril, hydralazine and Coreg and should continue. Coreg should be changed to bid but will await pacer placement first. History of Present Illness Reason for Consultation: Afib, syncope Attending Physician: Herlinda Wick MD History of Present Illness Mr. Arnold presented to the ED for new onset atrial fibrillation and syncope. Additionally he had a 6-second pause on mogul operator last night. He had been walking to his mailbox when he leaned over and lost consciousness hitting his head. He has been having episodes of leg weakness since August but this was the first episode of syncope. He has not had any palpitations. He does note that his blood pressure is generally labile. No chest pain. He has been somewhat sob and saw his pcp last week for this complaint. Mild edema lower extremities but no abdominal distention. Allergies Allergy/AdvReac Type Severity Reaction Status Date / Time tamsulosin [From Flomax] Allergy Intermediate LETHARGY Verified 10/05/21 10:35 Home Medications Medication Instructions Recorded Confirmed Type aspirin 81 mg tablet,delayed 81 mg PO QPM 08/23/19 10/05/21 History release (Adult Low Dose Aspirin) psyllium husk 3.4 gram/5.4 gram 1 tbsp PO QAM 12/12/19 10/05/21 History oral powder atorvastatin 80 mg tablet 80 mg PO QAM 09/13/20 10/05/21 History hydralazine 25 mg tablet 25 mg PO QAM #90 tab 05/22/21 10/05/21 Rx carvedilol 12.5 mg tablet 12.5 mg PO HS #180 tab 09/25/21 10/05/21 Rx enalapril maleate 2.5 mg tablet 2.5 mg PO QPM #90 tab 09/25/21 10/05/21 Rx sulfasalazine 500 mg tablet 1,000 mg PO TID #540 tab 10/02/21 10/05/21 Rx Patient History Medical History Acute appendicitis Acute appendicitis with localized peritonitis CKD (chronic kidney disease) creatinine baseline 1.5-1.6 per chart review Hearing deficit History of prostate cancer Hx of skin cancer, basal cell nose s/p excision Hx of ulcerative colitis Hyperlipidemia Hypertension Left renal artery stenosis Surgical History History of cataract surgery RT/LEFT History of colonoscopy History of right-sided carotid endarterectomy 05/2019 @ [facility] by Dr. Merino History of tonsillectomy Hx of hernia repair Left inguinal Hx of prostatectomy Hx of transurethral resection of prostate Family History Other No known health problems Social History Smoking Status: Former smoker Cigarettes Per Day: ~2ppd x 25 years; Second Hand Exposure: No; Do You Dip or Chew Tobacco: No; Hx Alcohol Use: No Hx Substance Use: No Preferred Language: Divehi Communication Ability: Effective Visual Impairment: No Limitations Junior Qa Analyst Required: No Beliefs That Will Affect Care: None Current Living Situation: Spouse Other Information That Helps Us Care for You: No Feels Safe at Home: Yes Safety Concerns: Feels Safe At This Time Assistive Devices: Hearing Aid - Bilateral Review of Systems Review of Systems: All systems reviewed & are unremarkable except as noted in HPI & below Physical Exam Constitutional: WD/WN, vitals as above Respiratory: normal respiratory effort, lungs clear to auscultation Cardiovascular: Rate/Rhythm: + irregularly irregular Gastrointestinal (Abdomen): normal bowel sounds, soft, nontender, no hepatosplenomegaly Neurologic: moves all extremities and awake Psychiatric: A+Ox3, euthymic affect Results & Data ([facility]) Vital Signs (Past 12 Hours) Vital Signs Temp Pulse Pulse Resp BP BP Pulse Ox 10/06/21 07:51 36.8 C 70 20 170/86 H 94 10/05/21 23:00 73 19 10/05/21 22:30 77 23 170/98 H 10/05/21 22:00 84 25 H 10/05/21 21:41 82 16
[2021-10-06] MEDS ORDERED: APIXABAN 5 MG TABLET PO SCH (09:00)
[2021-10-06] MEDS ORDERED: FUROSEMIDE INJ 20 MG/2 ML VIAL IV ONE (09:09)
[2021-10-06 11:51] LABS: Lyme Ab IgG w/WB Rflx Positive (Negative); Lyme Ab IgM w/WB Rflx Equivocal (Negative)
[2021-10-06] MEDS: cefTRIAXone SODIUM 2,000 MG in DEXTROSE 5% 50 ML IV SCH (15:35)
--- NOTE | 2021-10-06 16:18 | XCELERA ---
[id number]
--- NOTE | 2021-10-06 16:26 | Cardiology Consultation ---
Date of Consultation October 06, 2021 Assessment & Plan (1) Syncope: (2) New onset a-fib: 1. 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 However now with a greater than 4-second pause in association with symptoms of presyncope is very suggestive of pauses as a cause of his syncope. 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 I discussed the indications, procedure, risks and alternatives of pacemaker implantation with him and his daughter and they understand and he agrees to proceed. I also discussed sedation with him. 2. Atrial fibrillation: The duration of his atrial fibrillation is not clear, it may be quite recent although based on symptoms it is possibly up to a month or more in duration. I would treated as atrial fibrillation of unknown duration, I would continue anticoagulation and consider cardioversion after an appropriate length of time. I am going to implant a dual-chamber pacemaker with that in mind. History of Present Illness Reason for Consultation: Syncope, AF Attending Physician: Herlinda Wick MD History of Present Illness This is a 75-year-old male with a history of chronic kidney disease, prostate cancer, ulcerative colitis, hyperlipidemia and hypertension who presented with newly diagnosed atrial fibrillation. He has had a prodrome of feeling poorly for perhaps a month or a month and a half although the reason is not clear, he also describes intermittent episodes of presyncope lasting seconds for about that length of time. He then presented to the emergency room after suffering a syncopal event and was identified as having atrial fibrillation. He describes walking out to his mailbox, feeling 1 of these episodes that he has had coming on so he tried to sit down but ended up losing consciousness and hitting his head. He believes he was unconscious for only a brief period of time although he admits he does not know. He awoke without sequela I but came to the emergency room where he had a head laceration but no other injury. He was admitted, initial evaluation was notable only for atrial fibrillation and an echocardiogram done October 06, 2021 showed normal left ventricular function with left ventricular hypertrophy and mild to moderate mitral regurgitation. On telemetry in the slitter creaser slotter helper hours of October 06, 2021 he had a 6-second pause during atrial fibrillation. I reviewed the rhythm strip and it is not a termination pause, the atrial activity can be seen throughout the episode and it is not an artifact. He then had another greater than 4-second pause at around 10 AM on October 06, 2021, in retrospect he was in the bathroom, looked at his watch because he had one of his typical spells at that time and the time does match the pause on telemetry. This is consistent with symptomatic pauses causing his presyncopal episode and most likely his syncopal episode. Allergies Allergy/AdvReac Type Severity Reaction Status Date / Time tamsulosin [From Flomax] Allergy Intermediate LETHARGY Verified 10/05/21 10:35 Home Medications Medication Instructions Recorded Confirmed Type aspirin 81 mg tablet,delayed 81 mg PO QPM 08/23/19 10/05/21 History release (Adult Low Dose Aspirin) psyllium husk 3.4 gram/5.4 gram 1 tbsp PO QAM 12/12/19 10/05/21 History oral powder atorvastatin 80 mg tablet 80 mg PO QAM 09/13/20 10/05/21 History hydralazine 25 mg tablet 25 mg PO QAM #90 tab 05/22/21 10/05/21 Rx carvedilol 12.5 mg tablet 12.5 mg PO HS #180 tab 09/25/21 10/05/21 Rx enalapril maleate 2.5 mg tablet 2.5 mg PO QPM #90 tab 09/25/21 10/05/21 Rx sulfasalazine 500 mg tablet 1,000 mg PO TID #540 tab 10/02/21 10/05/21 Rx Patient History Medical History Acute appendicitis Acute appendicitis with localized peritonitis CKD (chronic kidney disease) creatinine baseline 1.5-1.6 per chart review Hearing deficit History of prostate cancer Hx of skin cancer, basal cell nose s/p excision Hx of ulcerative colitis Hyperlipidemia Hypertension Left renal artery stenosis Surgical History History of cataract surgery RT/LEFT History of colonoscopy History of right-sided carotid endarterectomy 05/2019 @ [facility] by Dr. Merino History of tonsillectomy Hx of hernia repair Left inguinal Hx of prostatectomy Hx of transurethral resection of prostate Family History Other No known health problems Social History Smoking Status: Former smoker Cigarettes Per Day: ~2ppd x 25 years; Second Hand Exposure: No; Do You Dip or Chew Tobacco: No; Hx Alcohol Use: No Hx Substance Use: No Preferred Language: Congolese Communication Ability: Effective Visual Impairment: No Limitations Retort Furnace Helper Required: No Beliefs That Will Affect Care: None marital status: Current Living Situation: Spouse Other Information That Helps Us Care for You: No Feels Safe at Home: Yes Safety Concerns: Feels Safe At This Time Assistive Devices: None Review of Systems Review of Systems: All systems reviewed & are unremarkable except as noted in HPI & below Physical Exam Physical Exam: Constitutional: Alert, cooperative and in no distress. HEENT: Unremarkable Neck: No jugular venous distention, carotid pulses are irregular but otherwise normal and equal bilaterally without bruits. Pulmonary: Clear to auscultation bilaterally. Cardiac: Irregular rhythm with a grade 2/6 holosystolic murmur at the apex, no gallop or rub. Abdomen: Soft, nontender with normal bowel sounds. Extremities: No edema. Distal pulses intact. Neurologic: No focal findings. Gait is steady. Skin: No rash, ecchymoses or petechiae. Results & Data ([facility]) Vital Signs (Past 12 Hours) Vital Signs Temp Pulse Pulse Resp BP Pulse Ox 10/06/21 16:00 70 10/06/21 12:24 36.7 C 69 20 137/72 90 10/06/21 08:10 65 10/06/21 07:51 36.8 C 70 20 170/86 H 94 Laboratory Results CBC 10/07/21 Range/Units 05:27 WBC 10.13 (4.8-10.8) K/uL RBC 3.99 L (4.7-6.1) M/uL Hgb 11.1 L (14.0-18.0) g/dL Hct 35.2 L (42-52) % Plt Count 227 (130-400) K/uL Neut # (Auto) 8.14 H (1.4-6.5) K/uL Lymph # (Auto) 1.07 L (1.2-3.4) K/uL Wilson # (Auto) 0.77 H (0.11-0.59) K/uL Eos # (Auto) 0.10 (0-0.5) K/uL Baso # (Auto) 0.03 (0-0.2) K/uL Comprehensive Metabolic Panel 10/07/21 Range/Units 05:27 Sodium 136 (136-145) mmol/L Potassium 4.0 (3.5-5.1) mmol/L Chloride 102 (98-107) mmol/L Carbon Dioxide 27 (21-32) mmol/L BUN 21 H (7-18) mg/dl Creatinine 1.42 H (0.6-1.4) mg/dl Glucose 99 (70-99) mg/dl Calcium 8.8 (8.5-10.1) mg/dl Intake and Output 10/06/21 10/07/21 10/07/21 22:59 06:59 14:59 Intake Total 795 / 795 Output Total 2225 / 2650 425 / 2650 Balance -1430 / -1855 -425 / -1855 Intake: IV 70 / 70 cefTRIAXone SODIUM 2,000 mg In 70 / 70 Dextrose 5% 50 ml @ 100 mls/hr IV DAILY [facility] Rx#:[id number] Oral 725 / 725 Output: Urine 2225 / 2650 425 / 2650 PG Care Time/CCT Total # of Minutes Spent Total Time Spent with Patient: Total time spent is greater than 50% in coordination of care (as documented) at patient's floor/unit and/or counseling patient: Coding Level of Care Code 16868 Initial Inpt Care Lvl 3 Diagnoses Syncope R55 New onset a-fib I48.91
[2021-10-06] MEDS ORDERED: LACTATED RINGER'S 1,000 ML IV SCH (16:30)
[2021-10-06] MEDS: ENALAPRIL MALEATE 5 MG TAB PO SCH (20:18)
[2021-10-06] MEDS: ASPIRIN 81 MG ECTAB PO SCH (20:19)
[2021-10-06] MEDS ORDERED: carvediloL 12.5 MG TAB PO SCH (21:00)
[2021-10-06] MEDS ORDERED: hydrALAZINE HCL 20 MG/ML VIAL IV ONE (23:26)
[2021-10-06] MEDS ORDERED: hydrALAZINE HCL 20 MG/ML VIAL IV PRN (23:27)
[2021-10-07 05:44] LABS: Basophils # (auto) 0.03 K/uL (0-0.2); Basophils % (auto) 0.3 %; Hematocrit (blood only) 35.2 % (42-52); Hemoglobin 11.1 g/dL (14.0-18.0); Immature Granulocytes # (auto) 0.02 K/uL (0.00-0.02); Immature Granulocytes % (auto) 0.2 %; Lymphocytes # (auto) 1.07 K/uL (1.2-3.4); Lymphocytes % (auto) 10.6 %; Mean Corpuscular Hemoglobin 27.8 pg (25-34); Mean Corpuscular Hgb Conc 31.5 g/dL (32-36); Mean Corpuscular Volume 88.2 fL (80-100); Mean Platelet Volume 8.5 fL (7.4-10.4); Monocytes # (auto) 0.77 K/uL (0.11-0.59); Monocytes % (auto) 7.6 %; Neutrophils # (auto) 8.14 K/uL (1.4-6.5); Neutrophils % (auto) 80.3 %; Platelet Count 227 K/uL (130-400); RDW Coefficient of Variation 15.6 % (11.5-14.5); RDW Standard Deviation 50.9 fL (36.4-46.3); Red Blood Count 3.99 M/uL (4.7-6.1); White Blood Count 10.13 K/uL (4.8-10.8)
[2021-10-07] MEDS ORDERED: LACTATED RINGER'S 1,000 ML IV SCH (06:00)
[2021-10-07 06:12] LABS: BUN Creatinine Ratio 15.1 (10-20); Calcium 8.8 mg/dl (8.5-10.1); Creatinine Clr Calc Pharmacy 47.4 ml/min; Est GFR (African American) 54.8 ml/min; Est GFR (Non-African American) 47.3 ml/min
[2021-10-07] MEDS ORDERED: VANCOMYCIN HCL 1000MG/20ML VIAL ONE (06:49)
[2021-10-07] MEDS ORDERED: BACITRACIN OINT 0.9 GM PKT ONE (06:49)
[2021-10-07] MEDS ORDERED: LIDOCAINE 1% LOCAL 20 ML VIAL ONE (06:49)
[2021-10-07] MEDS ORDERED: WATER, STERILE FOR INJ 10 ML VIAL ONE (06:49)
[2021-10-07] MEDS ORDERED: MIDAZOLAM HCL 5 MG/ML 1 ML VIAL ONE (07:26)
[2021-10-07] MEDS ORDERED: fentaNYL citrate 100 MCG/2 ML VIAL ONE (07:27)
--- NOTE | 2021-10-07 07:39 | Pre Anesthesia Assessment ---
Date of Service October 07, 2021 Pre Sedation Assessment Vital Signs Temp Pulse Pulse Resp BP BP Pulse Ox 10/07/21 07:23 64 17 181/105 H 94 10/07/21 04:00 36.9 C 67 18 155/76 H 91 10/07/21 00:15 78 10/07/21 00:13 10/07/21 00:06 172/91 H 10/06/21 23:22 37.1 C 75 20 192/92 H 91 10/06/21 22:37 36.8 C 66 20 170/101 H 95 10/06/21 19:12 36.9 C 69 20 127/67 93 10/06/21 16:00 70 10/06/21 12:24 36.7 C 69 20 137/72 90 10/06/21 08:10 65 10/06/21 07:51 36.8 C 70 20 170/86 H 94 Pulse Ox 10/07/21 07:23 10/07/21 04:00 10/07/21 00:15 10/07/21 00:13 93 10/07/21 00:06 10/06/21 23:22 10/06/21 22:37 10/06/21 19:12 10/06/21 16:00 10/06/21 12:24 10/06/21 08:10 10/06/21 07:51 Cardiovascular + irregularly irregular + S1 normal, + S2 normal and + murmur Respiratory normal respiratory effort, lungs clear to auscultation Pre-Sedation Airway Assessment Smoking Status: Former smoker Short, Thick Neck: No Thyromental Distance: > or= 3.5 Finger Breadths Oral Cavity: + WNL Mallampati Class: III ASA: ASA3 NPO Status Date of Last Intake of Fluids: 10/06/21 Date of Last Intake of Solid Food: 10/06/21 Procedure Planning Contraindications for Sedation: none Current Medications Reviewed: Yes Notes The planned sedation has been discussed with the patient. Informed Consent was obtained. I have identified the patient, determined the appropriateness of sedation and have assessed the patient immediately prior to the procedure. All medicine(s) and interventions are by my order.
--- NOTE | 2021-10-07 07:46 | Hospitalist Progress Note ---
Date of Service October 07, 2021 Assessment & Plan (1) New onset a-fib: Plan: Mr. Arnold is a 75 yo male with PMHx CKD, HTN, HLD, ulcerative colitis, renal artery stenosis, and right carotid endarterectomy admitted to hospital for workup of syncope and found to have new onset Afib. Syncope - Several sinus pauses overnight. Noted on Tele. - TTE: EF 65-70%, left ventricular wall motion normal, moderate LVH - Cardio consulted: s/p PPM (07/07), CXR AM - Cont. coreg. Lyme Positive Serology - lyme tested to r/o lyme carditis - IGG positive, IGM unequivocal, WB positive - Cont. IV Rocephin 2mg q24h New onset RC Afib - EKG showed new onset afib RC - K >4, Mg >2 - TTE: EF 65-70%, left ventricular wall motion normal, moderate LVH - Cont. Eliquis AM - Rate controlled with home dose Coreg, cont. Pulmonary Edema - sec to acute valvular systolic heart failure. - found on CXR and CT chest - elevated BNP - 2400 - Echo with normal EF. Moderate MR. Rt Vent pressure elevated. - monitor, CXR AM HTN/CAD - continue carvedilol, enalapril, hydralazine - continue ASA, statin Ulcerative Colitis - continue sulfasalazine CKD - 3 - GFR 54, at baseline. Incidental Thyroid Nodule - incidental finding on CT chest - Multinodular thyroid with hypodense 1.4 cm right thyroid nodule. - TSH WNL, follow up outpatient with ultrasound DVT ppx: Eliquis FEN/GI: heart healthy Code Status: DNR/DNI Dispo: med/tele. Covid negative. (2) CKD (chronic kidney disease): (3) Hypertension: (4) Hypercholesterolemia: (5) Ulcerative colitis: Admission and Anticipated Discharge Date Admission Date: October 05, 2021 Supervising Physician Co-Signing Physician Notes Resident Physician Supervision Note: I independently interviewed and examined the patient and verified the ha history and physical, reviewed labs and image studies and agree with resident Dr. Cintron findings and care plan. Subjective Had a few more pauses overnight. Pacemaker inserted this morning. Feeling well post procedure, no acute complaints. Review of Systems Constitutional: + fatigue and + weakness; no fever, no chills and no body aches Respiratory: no cough and no dyspnea Cardiovascular: no chest pain, no dyspnea and no edema Gastrointestinal: no abdominal pain, no nausea, no vomiting, no constipation and no diarrhea/loose stools Neurologic: no tingling, no numbness, no dizziness and no confusion Physical Exam Physical Exam: Constitutional: in no apparent distress, laying comfortably in bed. Eyes: EOMI, pupils equal and reactive bilaterally, no scleral icterus Cardiac: regular rate, irregularly irregular, no murmurs, gallops or rubs. Normal S1, S2 Pulm: CTA BL, no wheezes, rhonchi, crackles or rubs, moving air well throughout both lungs Abd: soft, nontender, nondistended, normal bowel sounds, no rebound or guarding Extremities: 2+ peripheral pulses, no edema Neuro: no focal deficits, moving all 4 limbs, A&Ox3 Skin: small treated laceration on left forehead near eye, bruising on arms Results & Data Results & Data ([facility]) Vital Signs (Past 12 Hours) Vital Signs Temp Pulse Pulse Resp BP Pulse Ox Pulse Ox 10/07/21 07:23 64 17 181/105 H 94 10/07/21 04:00 36.9 C 67 18 155/76 H 91 10/07/21 00:15 78 10/07/21 00:13 93 10/07/21 00:06 172/91 H 10/06/21 23:22 37.1 C 75 20 192/92 H 91 10/06/21 22:37 36.8 C 66 20 170/101 H 95 Resident Activity Tracking Resident Involvement: Resident Care Provided Care Provided: Adult Hospital Medicine
[2021-10-07] MEDS ORDERED: ACETAMINOPHEN W/CODEINE #3 1 TAB PO PRN (09:01)
--- NOTE | 2021-10-07 09:01 | Electrophysiology Report ---
Date of Service October 07, 2021 Electrophysiology Procedure Electrophysiology Procedure Report Preoperative diagnosis: Persistent atrial fibrillation with slow ventricular response Postoperative diagnosis: Same Procedure: Dual-chamber pacemaker implantation Surgeon: Moy Landers MD Estimated blood loss: 20 cc Complications: None Disposition: [place] recovery Procedure details: After obtaining informed consent for the procedure, the patient was brought to the laboratory and prepped and draped in the standard sterile manner. The left prepectoral region was anesthetized with 1% lidocaine local anesthetic and left axillary venipuncture was performed by percutaneous technique and a guidewire placed through the left subclavian vein into the superior vena cava. The area was further infiltrated with 1% lidocaine local anesthetic and a 5 cm incision was made parallel to the left clavicle and 2 cm below it and carried down to the anterior pectoralis fascia. A pacemaker pocket was formed by blunt dissection anterior to the pectoralis fascia and a vancomycin-soaked sponge was placed in the pocket. An 8 Turkish Medtronic lead introducer was placed over the guidewire into the left subclavian vein, the dilator and guidewire were removed and a bipolar active fixation steroid tipped ventricular lead was advanced through the introducer into the superior vena cava. A guidewire was placed through the introducer and the introducer was stripped from the lead and guidewire. Another 8 Turkish Medtronic lead introducer was placed over the guidewire into the left subclavian vein, the dilator and guidewire were removed and a bipolar active fixation steroid tipped atrial lead was advanced through the introducer into the superior vena cava. A guidewire was placed back through the introducer and the introducer was stripped from the lead and guidewire. Using a curved stylette the ventricular lead was advanced through the right ventricular outflow tract into the pulmonary artery and then using a straight stylette was positioned in the right ventricular apex. The screw was extended fixing the lead in position. Pacing and sensing thresholds were evaluated in bipolar configuration and are recorded on the implant data sheet. Diaphragmatic pacing was evaluated at maximum output as noted on the data sheet. Using a curved stylette the atrial lead was positioned in the region of the atrial appendage and the screw extended fixing the lead in position. Pacing could not be evaluated due to atrial fibrillation, sensing thresholds were evaluated in bipolar configuration and are recorded on the implant data sheet. Diaphragmatic pacing was evaluated at maximum output as noted on the data sheet. Once the leads were in position they were attached to the anterior pectoralis fascia using 2 sutures of 2-0 silk around each lead collar. The vancomycin soaked sponge was removed from the pocket, hemostasis was obtained, the pacemaker was attached to the leads and placed in the pocket with the leads coiled beneath it. The incision was closed with a running double subcutaneous closure of 3-0 Vicryl absorbable suture, followed by running subcuticular skin closure of 4-0 Vicryl absorbable suture. Bacitracin ointment was placed on the incision and a dressing applied. [facility] [place] codes Indication for Procedure (1) Bradycardia: Pacing Procedure 1: Pacin Insert/Replace Pacer A & V PG Moderate Sedation Codes Moderate Sedation Codes Procedure 1: Sedation/Anesthesia: 79153 Mod Sedation by the same physician;Init15 Min Child Age 5 & Up Procedure 2: Sedation/Anesthesia: 57011 Mod Sedation by the same physician; Ea [id number] Minutes
[2021-10-07] MEDS: sulfaSALAzine 500 MG TABLET PO SCH ×3 (10:04→20:04)
[2021-10-07] MEDS: cefTRIAXone SODIUM 2,000 MG in DEXTROSE 5% 50 ML IV SCH (10:04)
[2021-10-07] MEDS: hydrALAZINE HCL 25 MG TAB PO SCH (10:05)
[2021-10-07] MEDS: ATORVASTATIN 40 MG TAB PO SCH (10:05)
[2021-10-07 14:20] LABS: 18KDIGG Band NON-REACTIVE; 23KDIGG Band NON-REACTIVE; 23KDIGM Band NON-REACTIVE; 28KDIGG Band REACTIVE; 30KDIGG Band REACTIVE; 39KDIGG Band REACTIVE; 39KDIGM Band NON-REACTIVE; 41KDIGG Band REACTIVE; 41KDIGM Band REACTIVE; 45KDIGG Band REACTIVE; 58KDIGG Band REACTIVE; 66KDIGG Band REACTIVE; 93KDIGG Band REACTIVE; Lyme Antibodies, WB IgG POSITIVE (NEGATIVE); Lyme Antibodies, WB IgM NEGATIVE (NEGATIVE)
[2021-10-07] MEDS: ASPIRIN 81 MG ECTAB PO SCH (20:04)
[2021-10-07] MEDS: ENALAPRIL MALEATE 5 MG TAB PO SCH (20:04)
--- NOTE | 2021-10-07 21:28 | Post Anesthesia Assessment ---
Date of Service October 07, 2021 Post Sedation Assessment Vital Signs Temp Pulse Pulse Resp BP BP Pulse Ox 10/07/21 19:30 36.9 C 72 22 136/76 92 10/07/21 16:00 80 10/07/21 15:19 36.7 C 78 28 H 180/97 H 91 10/07/21 13:00 66 18 143/79 H 10/07/21 12:30 68 18 142/88 H 90 10/07/21 12:08 66 10/07/21 12:00 76 109/61 90 10/07/21 11:30 58 L 17 153/87 H 91 10/07/21 10:16 67 149/80 H 90 10/07/21 09:46 66 20 161/95 H 92 10/07/21 09:34 72 20 195/112 H 94 10/07/21 09:30 71 10/07/21 09:15 63 20 190/110 H 92 10/07/21 09:00 71 20 190/110 H 93 10/07/21 07:23 64 17 181/105 H 94 10/07/21 04:00 36.9 C 67 18 155/76 H 91 10/07/21 00:15 78 10/07/21 00:13 10/07/21 00:06 172/91 H 10/06/21 23:22 37.1 C 75 20 192/92 H 91 10/06/21 22:37 36.8 C 66 20 170/101 H 95 Pulse Ox 10/07/21 19:30 10/07/21 16:00 10/07/21 15:19 10/07/21 13:00 10/07/21 12:30 10/07/21 12:08 10/07/21 12:00 10/07/21 11:30 10/07/21 10:16 10/07/21 09:46 10/07/21 09:34 10/07/21 09:30 10/07/21 09:15 10/07/21 09:00 10/07/21 07:23 10/07/21 04:00 10/07/21 00:15 10/07/21 00:13 93 10/07/21 00:06 10/06/21 23:22 10/06/21 22:37 Recovery Score Activity: Moves 4 extremities Respiration: Deep Breath/Cough Circulation: +/-20% PreAnes Value Consciousness: Fully Awake Oxygen Saturation: > 92% On Room Air Post Anesthesia Score: 10 Discharge Sedation Level of Care: Fast Track Phase II Post Sedation Plan On clinical assessment, the patient appears to have tolerated the sedation without complications. Patient is recovering as anticipated. Patient will continue to be monitored by nursing and may be discharged when sedation discharge criteria are met per below protocol. Upon Completions of procedure up to 15 minutes continue every 5 minute vital signs and the P.A.R. score; then discharge to a Phase I or Fast Track to Phase II per the following guidelines: * Discharge Patient to appropriate Phase II area if PAR is 8 or greater or return to pre- procedure baseline. The post - procedure orders will be as directed. * If PAR score is less than 8 or not return to pre-procedure baseline then patient will follow Phase I monitoring till PAR is reached for Phase II. The Phase I may be done in procedure room or may call to secure a Phase I area. * If naloxone or flumazenil are used for reversal, hold in Phase I for continued monitoring from when last reversal dose was given for a minimum of 60 minutes or longer pending the nurse and/or physician discretion of patient condition before discharge to Phase II. Please call the Sedation Physician to re-evaluate and complete post-note for discharge to Phase II area. Do NOT discharge from procedure sedation or Phase 1 until post- sedation evaluation note is complete by procedure /sedation MD Sedation Discharge Instructions to be given to the patient at discharge to home.
[2021-10-08 05:37] LABS: Basophils # (auto) 0.02 K/uL (0-0.2); Basophils % (auto) 0.2 %; Eosinophils # (auto) 0.17 K/uL (0-0.5); Eosinophils % (auto) 1.9 %; Hematocrit (blood only) 35.2 % (42-52); Hemoglobin 11.4 g/dL (14.0-18.0); Immature Granulocytes # (auto) 0.03 K/uL (0.00-0.02); Immature Granulocytes % (auto) 0.3 %; Lymphocytes # (auto) 0.82 K/uL (1.2-3.4); Lymphocytes % (auto) 9.2 %; Mean Corpuscular Hemoglobin 28.5 pg (25-34); Mean Corpuscular Hgb Conc 32.4 g/dL (32-36); Mean Platelet Volume 8.7 fL (7.4-10.4); Monocytes # (auto) 1.25 K/uL (0.11-0.59); Monocytes % (auto) 14.1 %; Neutrophils # (auto) 6.58 K/uL (1.4-6.5); Neutrophils % (auto) 74.3 %; Platelet Count 205 K/uL (130-400); RDW Coefficient of Variation 15.4 % (11.5-14.5); White Blood Count 8.87 K/uL (4.8-10.8)
[2021-10-08 06:14] LABS: BUN Creatinine Ratio 17.8 (10-20); Calcium 8.6 mg/dl (8.5-10.1); Creatinine Clr Calc Pharmacy 48.8 ml/min; Est GFR (African American) 56.8 ml/min
--- NOTE | 2021-10-08 08:14 | Cardiology Progress Note ---
Date of Service October 08, 2021 Assessment & Plan (1) Status post placement of cardiac pacemaker: Plan: He is doing well post pacemaker implantation. He should have a chest x-ray done to confirm lead placement and exclude pneumothorax, pacemaker evaluation will be performed. Assuming these 2 are unremarkable he should be stable for discharge. Agree with initiation of anticoagulation. I will not arrange follow-up in our office but would be happy to if desired. I believe that will be arranged through [facility]. Admission and Anticipated Discharge Date Admission Date: October 05, 2021 Subjective He is feeling well today, no further lightheaded spells, no significant incisional discomfort. Physical Exam Physical Exam: The incision is clean and dry, minimal blood on the dressing. Dressing change. Minimal ecchymosis. No swelling or erythema. Cardiac rhythm is irregular with no rub Lungs are clear Results & Data ([facility]) Vital Signs (Past 12 Hours) Vital Signs Temp Pulse Pulse Resp BP Pulse Ox Pulse Ox 10/08/21 04:00 37.1 C 63 24 107/96 92 10/08/21 00:08 37.2 C 74 16 165/74 H 94 10/08/21 00:01 70 10/08/21 00:00 93 Laboratory Results CBC 10/08/21 Range/Units 05:10 WBC 8.87 (4.8-10.8) K/uL RBC 4.00 L (4.7-6.1) M/uL Hgb 11.4 L (14.0-18.0) g/dL Hct 35.2 L (42-52) % Plt Count 205 (130-400) K/uL Neut # (Auto) 6.58 H (1.4-6.5) K/uL Lymph # (Auto) 0.82 L (1.2-3.4) K/uL [place] # (Auto) 1.25 H (0.11-0.59) K/uL Eos # (Auto) 0.17 (0-0.5) K/uL Baso # (Auto) 0.02 (0-0.2) K/uL Comprehensive Metabolic Panel 10/08/21 Range/Units 05:10 Sodium 134 L (136-145) mmol/L Potassium 4.0 (3.5-5.1) mmol/L Chloride 103 (98-107) mmol/L Carbon Dioxide 27 (21-32) mmol/L BUN 25 H (7-18) mg/dl Creatinine 1.38 (0.6-1.4) mg/dl Glucose 111 H (70-99) mg/dl Calcium 8.6 (8.5-10.1) mg/dl Intake and Output 10/07/21 10/08/21 10/08/21 22:59 06:59 14:59 Intake Total 500 / 1070 500 / 1070 Balance 500 / 870 500 / 870 Intake: Oral 500 / 1000 500 / 1000 Other: # Unmeasured Voids 2 2 Diagnostic Findings Postop ECG: Atrial fibrillation with intermittent ventricular pacing appropriately Telemetry: Atrial fibrillation with intermittent ventricular pacing appropriately Chest x-ray: Pending Pacemaker evaluation: Pending PG Care Time/CCT Total # of Minutes Spent Total Time Spent with Patient: Total time spent is greater than 50% in coordination of care (as documented) at patient's floor/unit and/or counseling patient: Coding Level of Care Code 88207 Post Operative Follow-Up Diagnoses Status post placement of cardiac pacemaker Z95.0 CPT Codes Dual Lead Pacemaker System - 07098 ([id number])
[2021-10-08] MEDS: sulfaSALAzine 500 MG TABLET PO SCH ×2 (08:32→13:07)
[2021-10-08] MEDS: hydrALAZINE HCL 25 MG TAB PO SCH (08:32)
[2021-10-08] MEDS: cefTRIAXone SODIUM 2,000 MG in DEXTROSE 5% 50 ML IV SCH (08:33)
[2021-10-08] MEDS: ATORVASTATIN 40 MG TAB PO SCH (08:33)
--- NOTE | 2021-10-08 08:36 | Electrocardiogram Report ---
Test Reason : Blood Pressure : / mmHG Vent. Rate : 068 BPM Atrial Rate : 000 BPM P-R Int : 000 ms QRS Dur : 082 ms QT Int : 408 ms P-R-T Axes : 000 031 041 degrees QTc Int : 433 ms Atrial fibrillation with frequent ventricular-paced complexes Low voltage QRS Abnormal ECG When compared with ECG of 06-OCT-2021 05:07, Electronic ventricular pacemaker now present Confirmed by Rishabh Majano ([id number]) on 10/08/2021 8:35:49 AM Referred By: REFERRED SELF Confirmed By:Rishabh Majano
--- NOTE | 2021-10-08 08:40 | Cardiology Progress Note ---
Date of Service October 08, 2021 Assessment & Plan (1) New onset a-fib: Plan: Impression: 1. New onset atrial fibrillation, rate controlled 2. Syncope with subsequent finding of 6 second and 4 second pauses on the monitor, s/p dual chamber pacemaker placement 3. Hypertension 4. Undefined CHF - pulmonary edema on CXR and elevated bnp 5. Hyperlipidemia. 4. Ulcerative colitis. 5. Prostate cancer. 6. Lyme disease Mr. Arnold is doing well post pacer, pacing intermittently on the monitor. He should be continued on apixaban for anticoagulation. I have increased his Coreg to bid from . He will let me know if this makes him lightheaded, we could cut the hydralazine in that event. His blood pressure is good this morning but has been elevated throughout most of this stay. If he is still not tolerating being in afib after a month on anticoagulation we could consider cardioversion outpatient. He is also positive for Lyme disease on his Western blot and is being appropriately treated with Rocephin. The Lyme infection may have been a contributing factor in his pauses but does not necessarily rule out underlying conduction disease. He did have pulmonary edema on CXR on admission with elevated bnp and sob. Given furosemide 20 mg IV x1. His echo showed normal LVF, moderate concentric left ventricular hypertrophy, mild to mod mitral regurg, left atrium moderately dilated, RVSP 40-50 mmHg. Today he is saturating 92% on 2L. BNP is elevated and he has right sided pulmonary effusion on his CXR. Hospitalists have ordered a dose of IV furosemide for the morning. He will follow up with us in the clinic after his discharge Admission and Anticipated Discharge Date Admission Date: October 05, 2021 Subjective Mr. Arnold is doing well post pacemaker implantation. No complaints. He has no sob or chest pain, no palpitations. Review of Systems Review of Systems: All systems reviewed & are unremarkable except as noted in HPI & below Physical Exam Constitutional: WD/WN, vitals as above Respiratory: normal respiratory effort; no respiratory distress Auscultation: + diminished lung sounds (right base) Cardiovascular: RRR, no murmur, no edema Rate/Rhythm: + irregularly irregular Gastrointestinal (Abdomen): normal bowel sounds, soft, nontender, no hepatosplenomegaly Neurologic: moves all extremities and awake Psychiatric: A+Ox3, euthymic affect Results & Data ([facility]) Vital Signs (Past 12 Hours) Vital Signs Temp Pulse Pulse Resp BP Pulse Ox Pulse Ox 10/08/21 04:00 37.1 C 63 24 107/96 92 10/08/21 00:08 37.2 C 74 16 165/74 H 94 10/08/21 00:01 70 10/08/21 00:00 93
[2021-10-08] MEDS ORDERED: carvediloL 12.5 MG TAB PO SCH (09:00)
[2021-10-08] MEDS ORDERED: HEPARIN SOD 5,000 UNIT/0.5 ML VIAL SQ SCH (09:00)
[2021-10-08] MEDS ORDERED: APIXABAN 2.5 MG TAB PO SCH (09:00)
[2021-10-08] MEDS ORDERED: FUROSEMIDE INJ 20 MG/2 ML VIAL IV ONE (10:13)
--- NOTE | 2021-10-08 11:16 | XRay Report ---
XR chest 2V PA/lateral HISTORY: Status post pacemaker. Assess for pneumothorax. COMPARISON: Chest 10/05/2021. FINDINGS: Interval placement of a left-sided dual-chamber pacemaker. The leads appear intact. No pneu mothorax. There is chronic elevation of the right hemidiaphragm. A few bibasilar linear densities con sistent with subsegmental atelectasis. The pulmonary edema has resolved. The heart remains mildly enl arged. Punctate calcified granuloma within the right lung apex. IMPRESSION: 1. Left-sided dual-chamber pacemaker. No pneumothorax. 2. Interval resolution of the pulmonary edema. ACT 112: Negative or not required by law. Electronically signed by: Slava Holt M.D. 10/08/2021 11:14 AM
--- NOTE | 2021-10-08 14:25 | Discharge Summary ---
Date of Service October 08, 2021 Admission HPI Per Admitting Provider 75 yo M with a PMH Ulcerative Colitis, HTN, HLD, CAD who presents to the ER after syncope and fall at home. He states he was standing at the mailbox when he felt suddenly weak, bent forward to try and steady himself, and then fell forward and hit his head on the ground and passed out. He denies feeling dizzy prior to hitting his head. He denies any chest pain associated with the event or any palpitations. He has felt generally weak and unwell for the past few weeks and has been evaluated at [facility] twice (acute viral URI, CXR w/o pna/effusion + emphysematous changes, recommended seeing pulm for PFTs). EKG in ER significant for atrial fibrillation. No hx afib. CXR showing cardiomegaly with some pulmonary edema. Patient did not take his nighttime medications at home and was given his dose of carvedilol and enalapril in the ER. Principal Diagnosis Syncope Discharge Exam Constitutional: in no apparent distress, laying comfortably in bed. Eyes: EOMI, pupils equal and reactive bilaterally, no scleral icterus Cardiac: regular rate, irregularly irregular, no murmurs, gallops or rubs. Normal S1, S2 Pulm: CTA BL, no wheezes, rhonchi, crackles or rubs, moving air well throughout both lungs Abd: soft, nontender, nondistended, normal bowel sounds, no rebound or guarding Extremities: 2+ peripheral pulses, no edema Neuro: no focal deficits, moving all 4 limbs, A&Ox3 Skin: small treated laceration on left forehead near eye, bruising on arms Discharge Data Allergies Allergy/AdvReac Type Severity Reaction Status Date / Time tamsulosin [From Flomax] Allergy Intermediate LETHARGY Verified 10/05/21 10:35 Consultations 10/06/21 05:39 Consult Cardiology Routine Procedures Performed Operation Date: 10/07/21 07:30 Actual Procedures p Pacer with A/V Leads (Dual) - Moy Landers MD Ordered Studies 10/05/21 19:12 CT abd pelvis IV con only Stat CT cervical spine wo con Stat CT chest diagnostic w con Stat CT lumbar spine w con Stat CT thoracic spine w con Stat 10/05/21 19:56 CT head/brain wo con Stat 10/07/21 06:52 CL Cath Imgs for PACS use only Routine Hospital Course (1) Syncope: Mr. Arnold is a 75 yo male with PMHx CKD, HTN, HLD, ulcerative colitis, renal artery stenosis, and right carotid endarterectomy admitted to hospital for workup of syncope and found to have new onset Afib. Syncope sec to sinus pause - Presented after syncopal event and fall at home. - Multiple sinus pauses noted on Tele. - TTE: EF 65-70%, left ventricular wall motion normal, moderate LVH - Cardio consulted: s/p pacemaker (07/07) - CXR (07/08): left sided dual chamber pacemaker good placement, no pneumothorax. - Increase coreg to 12.5mg BID - f/u cardiology Lyme Disease - lyme tested to r/o lyme carditis - IGG positive, IGM unequivocal, WB positive - treated 3 days IV Ceftriaxone - start doxycycline 100mg BID x18 days New onset RC Afib - EKG showed new onset afib RC - K >4, Mg >2 - TTE: EF 65-70%, left ventricular wall motion normal, moderate LVH - Started on Eliquis 5mg PO BID - Coreg continued Pulmonary Edema - sec to acute valvular systolic heart failure - CXR and CT chest (10/05) with findings of pul edema - elevated BNP - 2400 - Echo with normal EF. Moderate MR. Rt Vent pressure elevated. - CXR (10/08): interval resolution of pulm edema - Lasix 20mg IV x1 this AM HTN/CAD - continue carvedilol, enalapril, hydralazine - continue ASA, statin - consider outpatient sleep study Ulcerative Colitis -continue sulfasalazine CKD - 3 - GFR 54, at baseline. Incidental Thyroid Nodule - incidental finding on CT chest - Multinodular thyroid with hypodense 1.4 cm right thyroid nodule. - TSH WNL, follow up outpatient with ultrasound DVT ppx: Eliquis FEN/GI: heart healthy Code Status: DNR/DNI Dispo: Home, self care. Covid negative. (2) New onset a-fib: (3) Lyme disease: (4) Status post placement of cardiac pacemaker: (5) CKD (chronic kidney disease): (6) Ulcerative colitis: (7) Hypertension: (8) CAD (coronary artery disease): (9) Thyroid nodule: Total Time Total Time Spent Total Time Spent (In Minutes): 30 Discharge Plan Discharge Items Patient Disposition: Home - Self-Care Reason For Visit: FALL Discharge Diagnosis: Syncope Activity: Resume your previous activity Non-emergency contact: Primary Care Provider Call non-emergency contact if: you have any medication questions and your symptoms worsen Follow-up/Referrals: Moy Landers MD [Physician] - 10/13/21 11:00 am Zackary Decker MD [Primary Care Provider] - 10/12/21 10:30 am Diet: Heart Healthy Addtl Attending Provider Instructions: You were admitted to the hospital for a syncopal event leading to a fall. It was found you were having several sinus pauses and it was decided to place a pacemaker to prevent this. You were also found to have new onset atrial fibrillation which will be treated with anticoagulation going forward. You were also diagnosed with lyme disease in the hospital, which may have been adding to your heart abnormalities. You will be treated for this with oral antibiotics after being discharged from the hospital. A discharge summary will be sent to your primary care physician to ensure continuity of care. Please bring this discharge summary with you to your next office appointment so that your provider can review it at that time. Follow-up appointments: Make a follow-up appointment with your PCP within the next week. It is very important that you follow up with them shortly after discharge from the hospital. We have requested a follow-up appointment with your primary care physician within one week of discharge. Please call their office if you do not hear from them. Keep all your follow-up appointments as already scheduled. If you cannot make an appointment, notify your provider. Medications: Your medication list has been reviewed and reconciled upon discharge to ensure accuracy and continuity of care. An updated list of all your medications is included with your hospital discharge paperwork. Please review this list closely,and make note of any changes. We sent a new medication called Doxycycline to your pharmacy. Take doxycycline 100mg one tablet 2x day for 18 days starting 10/09/2021. This will treat your lyme disease. We sent a new medication called Eliquis to your pharmacy. Take Eliquis 5mg one tablet 2x per day indefinitely. This will be act as anticoagulation for stroke prevention due to your new onset atrial fibrillation. We have also changed your Coreg (carvedilol) dose to one tablet (12.5mg) 2x per day. Be sure to contact your PCP if you feel any dizziness with this increase in medication. Take your medications as instructed; do not skip a dose of your medicines. Make sure all of your doctors know every medicine you are taking (including hcwr-iyy-buddolw medicines, vitamins,and supplements). Call your primary care provider before taking any new medicines (including fhwv-xdw-tryyyrz medicines, vitamins, and supplements),because some of these may interact with your current medications, or may make your symptoms worse. Tell your primary care provider if you cannot afford your medications. CONTACT YOUR PRIMARY CARE PROVIDER if you experience any of the following: Difficulty following your treatment plan, or difficulty taking medications. CALL 911 OR GO TO THE EMERGENCY DEPARTMENT if you experience any of the following: Sudden, severe abdominal pain or nausea/vomiting Severe chest pain, or chest pain that radiates (moves)to your jaw or arm Sudden, severe shortness of breath or difficulty breathing ACTIVITY RECOMMENDATIONS: * Do not raise affected arm over head for 2 weeks. SPECIAL CARE INSTRUCTIONS: * If bleeding occurs, apply direct pressure to area for 5 minutes. * Call your doctor if you have severe pain, fever, drainage or bleeding at site. * Keep dressing on and dry for 48 hours then remove. * Keep any scheduled doctor's appointment. * Implant Card - hand held device with website information given. SKIN IRRITATION: * You may experience some redness and/or swelling in the area where radiation was administered. If any skin irritation occurs, please contact your family physician. FOLLOW UP VISIT: Keep any scheduled doctor appointments. Thank you for allowing us to participate in your care. Pending Studies at Discharge: No Stand-Alone Forms: [facility] Street[facility], Smoking Cessation Medications and DC Order Prescriptions: New doxycycline hyclate 100 mg capsule 100 mg PO BID 18 Days Qty: 36 RF: 0 Eliquis 5 mg tablet 5 mg PO BID Qty: 60 RF: 0 Continued hydralazine 25 mg tablet 25 mg PO QAM Qty: 90 RF: 3 enalapril maleate 2.5 mg tablet 2.5 mg PO QPM Qty: 90 RF: 3 sulfasalazine 500 mg tablet 1,000 mg PO TID Qty: 540 RF: 3 aspirin [Adult Low Dose Aspirin] 81 mg tablet,delayed release (DR/EC) 81 mg PO QPM RF: 0 psyllium husk 3.4 gram/5.4 gram Powder 1 tbsp PO QAM RF: 0 atorvastatin 80 mg tablet 80 mg PO QAM RF: 0 Changed carvedilol 12.5 mg tablet 12.5 mg PO BID Qty: 180 RF: 3 Discharge Orders: Discharge Order (Routine); Ordered 10/08/21 Ordered By: Sameer Cintron Admission Data Admit Date/Time: 10/05/21 22:55 Attending Provider: Herlinda Wick Admit Provider: Whitley Cintron Primary Care Provider: Zackary Decker Other Providers: Palmer Soler Other Interventions: Discharge Summary Assessment (RN) Last Done: 10/08/21 13:54 Supervising Physician Co-Signing Physician Notes Resident Physician Supervision Note: I independently interviewed and examined the patient and verified the ha history and physical, reviewed labs and image studies and agree with resident Dr. Cintron findings and care plan. Resident Activity Tracking Resident Involvement: Resident Care Provided Care Provided: Adult Hospital Medicine
== END 2021-10-08 14:43 | disposition home or self-care (01) | DRG 242 ==
LOC: ED 18:17 → EDINP 22:55 → SUATTDRO 22:55 → 2N 23:10 → 1E 10-06 23:09